=== PATIENT | female | born 1960 | race Caucasian/White ===

== ENCOUNTER → 2016-04-27 | Outpatient (CLI) | payer OTHER ==
[~2016-04-27] MED LIST: ACET500C OR; AMIT10TA2; AMIT25TA PO; AMIT25TA2 OR; MULTIVIT PO; TRAM50TA2; TRAM50TA2 OR; TRAM50TA2 PO
--- NOTE | 2016-04-28 01:33 | ECWPNPC ---
PATIENT NAME: MIKY ELAINE : 1960 GENDER: FEMALE VISIT DATE: 04/27/2016 DISCHARGE DATE: 04/27/16918 VISIT LOCKED DATE TIME: PHYSICIAN: GABRIEL LAST RESOURCE: GABRIEL LAST REASON FOR APPOINTMENT 1. WC 3MO F/U L SHOULDER HISTORY OF PRESENT ILLNESS HISTORY OF PRESENT ILLNESS: PAIN THE PATIENT DESCRIBES THE PAIN... THE PATIENT DESCRIBES THE PAIN... THE PATIENT DESCRIBES THE PAIN... HERE FOR F/U AND MANAGEMENT OF PERSISTENT LEFT SHOULDER AND ARM PAIN.WE ARE FOLLOWING HER FOR CHRONIC PAIN ASSOCIATED WITH WORK INJURY . USING DCS INTERMITTENTLY WITH SIGNIFICANT REDUCTION IN SEVERE PAIN EPISODES.CURRENTLY USING TRAMADOL 50MG TID AND AMITRIPTYLINE 25MG AT BEDTIME. REPORTS THAT THESE MEDICATIONS ARE EFFECTIVE AT REDUCING PAIN AND KEEPING HER FUNCTIONAL. DENIES ADVERSE SIDE EFFECTS.RATING PAIN VAS 6/10.STATES SHE HAS BEEN CARING FOR HER MOTHER AND FEELS THAT AGGREVATES PAIN. FALL RISK SCREENING: SCREENING :NO FALLS IN THE PAST YEAR CURRENT MEDICATIONS TAKING MULTIVITAMIN TABLET CHEWABLE 1 TAB ORALLY DAILY TAKING ACETAMINOPHEN 500 MG TABLET 1 TABLET NEEDED ORALLY EVERY 6 HRS TAKING TRAMADOL HCL 50 MG TABLET 1 TABLET NEEDED ORALLY EVERY 8 HR NEEDED MDD3 TAKING AMITRIPTYLINE HCL 50 MG TABLET 1 TABLET ORALLY AT BEDTIME MEDICATION LIST REVIEWED AND RECONCILED WITH THE PATIENT ALLERGIES PENICILLIN (FOR ALLERGIES USE ONLY): DIFFICULTY BREATHING: ALLERGY SHELLFISH: FACE AND FINGERS SWELL: ALLERGY SOCIAL HISTORY GENERAL: TOBACCO USE ARE YOU A:NONSMOKER LEARNING BARRIERS / SPECIAL NEEDS ORIENTED TO PLAN OF CARE: PATIENT, PAIN MANAGEMENT PATIENT, ORIENTED TO PLAN OF CARE: PATIENT, PAIN MANAGEMENT PATIENT. NEW PATIENT PAIN DIARY TODAY'S VISITNOTES FROM 0-10, WHAT LEVEL IS YOUR PAIN TODAY?0 PAIN CLINIC PFS, CLERGY, PUBLIC HEALTH REFERRALS PFS REFERRAL NEEDED?NO CLERGY REFERRAL NEEDED?NO PUBLIC HEALTH REFERRAL NEEDED?NO WAS THE PROVIDER NOTIFIED OF ANY PERTINENT INFO?YES REVIEWED BY: ELLIOTT. REVIEW OF SYSTEMS CONSTITUTIONAL: ANY CHANGE IN YOUR MEDICAL CONDITION? NO . CHILLS NO . FEVER NO . INFECTION: DO YOU HAVE NEW INFECTIONS? NO . DO YOU HAVE HISTORY OF MRSA? NO . MUSCULOSKELETAL: ANY NEW PATTERNS OF PAIN OR NUMBNESS? YES, PT STATES THAT WEATHER FLUCTUATIONS CAUSE THE PAIN. . GASTROENTEROLOGY: ANY NEW CHANGE IN BOWEL CONTROL? NO . GENITOURINARY: ANY NEW CHANGE IN BLADDER CONTROL? NO . IS THERE A CHANCE YOU COULD BE ? NO . HEMATOLOGY/LYMPH: DO YOU TAKE ANY BLOOD THINNERS? (FOR EXAMPLE- COUMADIN, PLAVIX, AGGRENOX, PLATEL, PRADAXA, OR XARELTO) NO . WHEN WAS YOUR LAST DOSE? DATE: TIME: . NEUROLOGY: HAVE YOU FALLEN IN THE PAST 6 MONTHS? NO . ANY NEW EXTREMITY NUMBNESS OR WEAKNESS? NO . CARDIOLOGY: DO YOU HAVE A PACEMAKER OR DEFIBRILLATOR? NO . RESPIRATORY: HAVE YOU BEEN SICK IN THE PAST WEEK? NO . FEVER NO . FLU LIKE SYMPTOMS? NO . COUGH NO . INTEGUMENTARY: DO YOU HAVE ANY RASHES OR OPEN SORES? NO . ALLERGIC/IMMUNO: ARE YOU ALLERGIC TO SHELLFISH OR IV DYE? NO . ANY NEW ALLERGIES? NO . PSYCHIATRIC: DO YOU HAVE THOUGHTS OF HURTING YOURSELF OR SOMEONE ELSE? NO . ARE YOU ABUSED, NEGLECTED, OR IN AN UNSAFE ENVIRONMENT? NO . ENDOCRINOLOGY: ARE YOU DIABETIC? NO . OTHER: DO YOU NEED ANY PRESCRIPTIONS? YES, AMITRIPTYLINE, TRAMADOL . IF YES, PLEASE LIST: ____ . ANY NEW PROBLEMS WITH YOUR MEDICATIONS? NO . WHEN DID YOU LAST EAT? ____ . WHEN DID YOU LAST DRINK? ____ . WHAT DID YOU LAST DRINK? ____ . NAME OF PERSON DRIVING YOU HOME? ____ . DO YOU HAVE ANY OTHER QUESTIONS OR CONCERNS NO . REVIEWED BY: PROVIDER: GABRIEL MANCUSO . VITAL SIGNS WT 161.2 LBS, HT 62 IN, BMI 29.48 INDEX, BP 114/74 MM HG, HR 85 /MIN, RR 16 /MIN, TEMP 98.3 F, OXYGEN SAT % 96%, SAFE IN ENV? (Y/N) Y, NA INITIALS WY 08:56, REVIEWED BY: ELLIOTT. EXAMINATION GENERAL EXAMINATION: LUNGS:LUNG SOUNDS ARE CLEAR. HEART:HEART RATE REGULAR. MUSCULOSKELETAL:*. MUSCULOSKELETAL: LIMITED MUSCLE STRENGTH TESTING 5/5 R AND 3/5 L, PALPATION: + PAIN L SHOULDER. LEFT SHOULDER RANGE OF MOTION APROX 45 DEGREES ABDUCTION. . ASSESSMENTS CERVICALGIA - M54.2 (PRIMARY) PAIN IN LEFT SHOULDER - M25.512 CHRONIC PRESCRIPTION OPIATE USE - Z79.891 TREATMENT CERVICALGIA CONTINUE ACETAMINOPHEN TABLET, 500 MG, 1 TABLET NEEDED, ORALLY, EVERY 6 HRS REFILL TRAMADOL HCL TABLET, 50 MG, 1 TABLET NEEDED, ORALLY, EVERY 8 HR NEEDED MDD3, 30 DAY(S), 90, REFILLS 2 REFILL AMITRIPTYLINE HCL TABLET, 50 MG, 1 TABLET, ORALLY, AT BEDTIME, 30 DAY(S), 30, REFILLS 5 PROCEDURES PN WORKMANS' COMP OPINION IN YOUR OPINION, WAS THE INCIDENT THAT THE PATIENT DESCRIBED THE COMPETENT MEDICAL CAUSE OF THIS INJURY/ILLNESS? YES ARE THE PATIENT'S COMPLAINTS CONSISTENT WITH HIS/HER HISTORY OF THE INJURY/ILLNESS? YES IS THE PATIENT'S HISTORY OF THE INJURY/ILLNESS CONSISTENT WITH YOUR OBJECTIVE FINDING? YES WHAT IS THE PERCENTAGE OF TEMPORARY IMPAIRMENT? MODERATE TO MARKED = 66.7% IS THE PATIENT WORKING? NO DOCTOR ON SITE: JEREMY TOWNSEND MD PROCEDURE CODES FA211 ESTABILISHED PATIENT [facility] FACILITY CHARGE FOLLOW UP [address] MARES ELECTRONICALLY SIGNED BY JAMEE LIANG ON 04/27/2016 AT 09:23 AM EST DISCLAIMER : THIS IS A VISIT SUMMARY EXTRACTED FROM THE [employer] CHART. IT IS NOT A COPY OF THE [employer] PROGRESS NOTE. [place]
== END ==
LOC: M PAIN 09:00
PROVIDERS: ATTEND Nurse Practitioner Family
DX: Z09 Encounter for follow-up examination after completed treatment for conditions other than malignant neoplasm (principal); G89.29 Other chronic pain; M54.2 Cervicalgia; M25.512 Pain in left shoulder; Z88.0 Allergy status to penicillin; Z91.013 Allergy to seafood; Z79.1 Long term (current) use of non-steroidal anti-inflammatories (NSAID); Z79.891 Long term (current) use of opiate analgesic; Z79.899 Other long term (current) drug therapy

== ENCOUNTER → 2016-06-13 | Outpatient (CLI) | payer OTHER ==
--- NOTE | 2016-06-20 01:22 | ECWPNPC ---
PATIENT NAME: MIKY ELAINE : 1960 GENDER: FEMALE VISIT DATE: 06/13/2016 DISCHARGE DATE: 06/13/16 1653 VISIT LOCKED DATE TIME: PHYSICIAN: JEREMY MARES RESOURCE: JEREMY MARES REASON FOR APPOINTMENT 1. WC, L SHOULDER HISTORY OF PRESENT ILLNESS HISTORY OF PRESENT ILLNESS: PAIN THE PATIENT DESCRIBES THE PAIN... 55 YEAR OLD FEMALE PATIENT WITH HISTORY OF CHRONIC LEFT SHOULDER PAIN. PATIENT DESCRIBES THE PAIN ACHING, BURNING, SHARP, STABBING, TENDER, THROBBING, SORE, SHOOTING, IT COMES AND GOES, AND HAVING IT ALL THE TIME WITH A PAIN SCORE OF 11/10 ON TODAY'S VISIT. PATIENT WAS INJURED IN A WORK RELATED INJURY ON 09/08/1999. PATIENT REPORTS THAT SHE WAS TEARING DOWN A LOAD OF MEAT OFF A PALATE WEIGHING 18 TO 125 LBS. PATIENT NOTED SOME SORENESS IMMEDIATELY AND TWO HOURS LATER HER ARM WAS VERY PAINFUL. PATIENT REPORTS THAT SHE HAS TRIED PHYSICAL THERAPY IN THE PAST BUT CAN NOT RECALL HOW THEY HELPED HER. PATIENT REPORTS THAT TRAMADOL IS WORKING TO TAKE SOME OF THE PAIN AWAY. PATIENT STATES THAT SHE TAKE AMITRIPTYLINE AT NIGHT AND SHE IS TAKING TYLENOL TWICE A DAY. PATIENT REPORTS THAT SHE HAD A DCS PUT IN ABOUT TEN YEARS AGO AND NOT THE DEVICE IS NO LONGER WORKING AND IS NOT RECHARGING. PATIENT DENIES UNEXPLAINABLE WEIGHT LOSS, FEVER, CHILLS, NEW CHANGES ON HER URINARY OR BOWEL CONTROL. FALL RISK SCREENING: SCREENING :NO FALLS IN THE PAST YEAR CURRENT MEDICATIONS TAKING MULTIVITAMIN TABLET CHEWABLE 1 TAB ORALLY DAILY TAKING ACETAMINOPHEN 500 MG TABLET 1 TABLET NEEDED ORALLY EVERY 6 HRS TAKING TRAMADOL HCL 50 MG TABLET 1 TABLET NEEDED ORALLY EVERY 8 HR NEEDED MDD3 TAKING AMITRIPTYLINE HCL 50 MG TABLET 1 TABLET ORALLY AT BEDTIME MEDICATION LIST REVIEWED AND RECONCILED WITH THE PATIENT PAST MEDICAL HISTORY NO MEDICAL HISTORY. ALLERGIES PENICILLIN (FOR ALLERGIES USE ONLY): DIFFICULTY BREATHING: ALLERGY SHELLFISH: FACE AND FINGERS SWELL: ALLERGY SURGICAL HISTORY NO SURGICAL HISTORY DOCUMENTED. FAMILY HISTORY NO FAMILY HISTORY DOCUMENTED. SOCIAL HISTORY GENERAL: TOBACCO USE ARE YOU A:NONSMOKER LEARNING BARRIERS / SPECIAL NEEDS ORIENTED TO PLAN OF CARE: PATIENT, PAIN MANAGEMENT PATIENT, ORIENTED TO PLAN OF CARE: PATIENT, PAIN MANAGEMENT PATIENT. NEW PATIENT PAIN DIARY TODAY'S VISITNOTES FROM 0-10, WHAT LEVEL IS YOUR PAIN TODAY?0 PAIN CLINIC PFS, CLERGY, PUBLIC HEALTH REFERRALS PFS REFERRAL NEEDED?NO CLERGY REFERRAL NEEDED?NO PUBLIC HEALTH REFERRAL NEEDED?NO WAS THE PROVIDER NOTIFIED OF ANY PERTINENT INFO?NO PFS REFERRAL NEEDED?NO CLERGY REFERRAL NEEDED?NO PUBLIC HEALTH REFERRAL NEEDED?NO WAS THE PROVIDER NOTIFIED OF ANY PERTINENT INFO?NO HOSPITALIZATION/MAJOR DIAGNOSTIC PROCEDURE NO HOSPITALIZATION HISTORY. REVIEW OF SYSTEMS CONSTITUTIONAL: ANY CHANGE IN YOUR MEDICAL CONDITION? NO . CHILLS NO . FEVER NO . INFECTION: DO YOU HAVE NEW INFECTIONS? NO . DO YOU HAVE HISTORY OF MRSA? NO . MUSCULOSKELETAL: ANY NEW PATTERNS OF PAIN OR NUMBNESS? NO . GASTROENTEROLOGY: ANY NEW CHANGE IN BOWEL CONTROL? NO . GENITOURINARY: ANY NEW CHANGE IN BLADDER CONTROL? NO . IS THERE A CHANCE YOU COULD BE ? NO . HEMATOLOGY/LYMPH: DO YOU TAKE ANY BLOOD THINNERS? (FOR EXAMPLE- COUMADIN, PLAVIX, AGGRENOX, PLATEL, PRADAXA, OR XARELTO) NO . WHEN WAS YOUR LAST DOSE? DATE: TIME: . NEUROLOGY: HAVE YOU FALLEN IN THE PAST 6 MONTHS? NO . ANY NEW EXTREMITY NUMBNESS OR WEAKNESS? NO . CARDIOLOGY: DO YOU HAVE A PACEMAKER OR DEFIBRILLATOR? NO . RESPIRATORY: HAVE YOU BEEN SICK IN THE PAST WEEK? NO . FEVER NO . FLU LIKE SYMPTOMS? NO . COUGH NO . INTEGUMENTARY: DO YOU HAVE ANY RASHES OR OPEN SORES? NO . ALLERGIC/IMMUNO: ARE YOU ALLERGIC TO SHELLFISH OR IV DYE? YES SHELLFISH . ANY NEW ALLERGIES? NO . PSYCHIATRIC: DO YOU HAVE THOUGHTS OF HURTING YOURSELF OR SOMEONE ELSE? NO . ARE YOU ABUSED, NEGLECTED, OR IN AN UNSAFE ENVIRONMENT? NO . ENDOCRINOLOGY: ARE YOU DIABETIC? NO . OTHER: DO YOU NEED ANY PRESCRIPTIONS? YES ULTRAM, AMITRIPTYLINE . IF YES, PLEASE LIST: ____ . ANY NEW PROBLEMS WITH YOUR MEDICATIONS? NO . WHEN DID YOU LAST EAT? ____ . WHEN DID YOU LAST DRINK? ____ . WHAT DID YOU LAST DRINK? ____ . NAME OF PERSON DRIVING YOU HOME? ____ . DO YOU HAVE ANY OTHER QUESTIONS OR CONCERNS NO . REVIEWED BY: PROVIDER: JEREMY MARES MD . VITAL SIGNS WT 132 LBS, HT 62 IN, BMI 24.14 INDEX, BP 117/71 MM HG, HR 68 /MIN, RR 16 /MIN, TEMP 98.8 F, OXYGEN SAT % 97, NA INITIALS [id number], REVIEWED BY: MLF. EXAMINATION : PATIENT IS ALERT O X 3 AND COOPERATIVE. PATIENT HAS TENDERNESS, ALLODYNIA AND HYPERPATHIA IN THE LEFT SHOULDER. 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 ELAINE'S PAIN MANAGEMENT CASE. AT THIS TIME I WILL REFILL TRAMADOL, AMITRIPTYLINE, AND ACETAMINOPHEN TODAY. I DISCUSSED WITH THE PATIENT THAT I DO NOT DO REFILLS OVER THE PHONE AND IT IS IMPORTANT TO COME TO EVERY VISIT. INFORMED THE PATIENT THAT TRAMADOL IS NOW CONSIDERED AN OPIOID AND IN THE FUTURE I WILL BEGIN TO ORDER A UTOX. I CONTACT ROBERT JAY TO HAVE THE DCS DEVICE LOOKED AT. PATIENT TO FOLLOW UP WITH ME IN 6 WEEKS. INSTRUCTIONS WERE GIVEN, QUESTIONS WERE ANSWERED, PATIENT REPORTS UNDERSTANDING AND AGREES WITH THE PLAN. I, RODOLFO DOMINGUEZ, DOCUMENTED THE ABOVE INFORMATION ACTING A SCRIBE FOR DR. MARES. I HAVE REVIEWED THE ABOVE DOCUMENT, WRITTEN BY RODOLFO DOMINGUEZ SCRIBKaren AND I VERIFY THAT IT IS ACCURATE. OTHERS REFILL TRAMADOL HCL TABLET, 50 MG, 1 TABLET NEEDED, ORALLY CODE D FOR CHRONIC PAIN ), EVERY 8 HR NEEDED MDD3, 60 DAYS, 180, REFILLS 0 REFILL AMITRIPTYLINE HCL TABLET, 50 MG, 1 TABLET, ORALLY, AT BEDTIME, 30 DAY(S), 30, REFILLS 3 REFILL ACETAMINOPHEN TABLET, 500 MG, 2 TABLET NEEDED, ORALLY FOR PAIN (WORKERS COMP), EVERY 6 HRS MDD4, 30 DAY(S), 200, REFILLS 2 PROCEDURES PN WORKMANS' COMP OPINION IN YOUR OPINION, WAS THE INCIDENT THAT THE PATIENT DESCRIBED THE COMPETENT MEDICAL CAUSE OF THIS INJURY/ILLNESS? YES ARE THE PATIENT'S COMPLAINTS CONSISTENT WITH HIS/HER HISTORY OF THE INJURY/ILLNESS? YES IS THE PATIENT'S HISTORY OF THE INJURY/ILLNESS CONSISTENT WITH YOUR OBJECTIVE FINDING? YES WHAT IS THE PERCENTAGE OF TEMPORARY IMPAIRMENT? MODERATE TO MARKED = 66.7% IS THE PATIENT WORKING? NO DOCTOR ON SITE: JEREMY TOWNSEND MD PROCEDURE CODES FA211 ESTABILISHED PATIENT [facility] FACILITY CHARGE [id number] PAIN ASSESS POS TOOL F/U PLAN DOC G8427 DOC MEDS VERIFIED W/PT OR RE DISPOSITION & COMMUNICATION FOLLOW UP 6 WEEKS ELECTRONICALLY SIGNED BY JEREMY MARES MD ON 06/19/2016 AT 12:20 PM EDT DISCLAIMER : THIS IS A VISIT SUMMARY EXTRACTED FROM THE [facility] CHART. IT IS NOT A COPY OF THE [employer] PROGRESS NOTE. MTDD
== END ==
LOC: M PAIN 15:20
PROVIDERS: ATTEND Anesthesiology
DX: Z09 Encounter for follow-up examination after completed treatment for conditions other than malignant neoplasm (principal); G90.512 Complex regional pain syndrome I of left upper limb; G89.29 Other chronic pain; M25.512 Pain in left shoulder; Z88.0 Allergy status to penicillin; Z91.013 Allergy to seafood; Z79.899 Other long term (current) drug therapy

== ENCOUNTER → 2016-07-27 | Outpatient (CLI) | payer OTHER ==
--- NOTE | 2016-07-31 00:48 | ECWPNPC ---
PATIENT NAME: MIKY ELAINE : 1960 GENDER: FEMALE VISIT DATE: 07/27/2016 DISCHARGE DATE: 07/27/16 1428 VISIT LOCKED DATE TIME: PHYSICIAN: JEREMY MARES RESOURCE: JEREMY MARES REASON FOR APPOINTMENT 1. W/C LT SHOULDER HISTORY OF PRESENT ILLNESS HISTORY OF PRESENT ILLNESS: PAIN THE PATIENT DESCRIBES THE PAIN... 55 YEAR OLD FEMALE PATIENT WITH HISTORY OF CHRONIC LEFT SHOULDER PAIN. PATIENT DESCRIBES THE PAIN ACHING, BURNING, SHARP, STABBING, TENDER, THROBBING, SORE, IT COMES AND GOES, AND HAVING IT ALL THE TIME WITH A PAIN SCORE OF 9/10 ON TODAY'S VISIT. PATIENT WAS INJURED IN A WORK RELATED INJURY ON 09/08/1999. PATIENT REPORTS THAT SHE WAS TEARING DOWN A LOAD OF MEAT OFF A PALATE WEIGHING 18 TO 125 LBS. PATIENT NOTED SOME SORENESS IMMEDIATELY AND TWO HOURS LATER HER ARM WAS VERY PAINFUL. PATIENT REPORTS THAT SHE HAS TRIED PHYSICAL THERAPY IN THE PAST BUT CAN NOT RECALL HOW THEY HELPED HER. PATIENT REPORTS THAT TRAMADOL IS WORKING TO TAKE SOME OF THE PAIN AWAY. PATIENT STATES THAT SHE TAKE AMITRIPTYLINE AT NIGHT AND SHE IS TAKING TYLENOL TWICE A DAY .PATIENT REPORTS THAT SHE HAS NOT YET HAD HER DCS CHECKED, PATIENT DENIES UNEXPLAINABLE WEIGHT LOSS, FEVER, CHILLS, NEW CHANGES ON HER URINARY OR BOWEL CONTROL. FALL RISK SCREENING: SCREENING :NO FALLS IN THE PAST YEAR CURRENT MEDICATIONS TAKING TRAMADOL HCL 50 MG TABLET 1 TABLET NEEDED ORALLY CODE D FOR CHRONIC PAIN ) EVERY 8 HR NEEDED MDD3 TAKING AMITRIPTYLINE HCL 50 MG TABLET 1 TABLET ORALLY AT BEDTIME TAKING ACETAMINOPHEN 500 MG TABLET 2 TABLET NEEDED ORALLY FOR PAIN (WORKERS COMP) EVERY 6 HRS MDD4 TAKING MULTIVITAMIN TABLET CHEWABLE 1 TAB ORALLY DAILY MEDICATION LIST REVIEWED AND RECONCILED WITH THE PATIENT PAST MEDICAL HISTORY NO MEDICAL HISTORY. ALLERGIES PENICILLIN (FOR ALLERGIES USE ONLY): DIFFICULTY BREATHING: ALLERGY SHELLFISH: FACE AND FINGERS SWELL: ALLERGY SURGICAL HISTORY NO SURGICAL HISTORY DOCUMENTED. FAMILY HISTORY NO FAMILY HISTORY DOCUMENTED. SOCIAL HISTORY GENERAL: TOBACCO USE ARE YOU A:NONSMOKER LEARNING BARRIERS / SPECIAL NEEDS ORIENTED TO PLAN OF CARE: PATIENT, PAIN MANAGEMENT PATIENT, ORIENTED TO PLAN OF CARE: PATIENT, PAIN MANAGEMENT PATIENT. NEW PATIENT PAIN DIARY TODAY'S VISITNOTES FROM 0-10, WHAT LEVEL IS YOUR PAIN TODAY?0 PAIN CLINIC PFS, CLERGY, PUBLIC HEALTH REFERRALS PFS REFERRAL NEEDED?NO CLERGY REFERRAL NEEDED?NO PUBLIC HEALTH REFERRAL NEEDED?NO WAS THE PROVIDER NOTIFIED OF ANY PERTINENT INFO?NO PFS REFERRAL NEEDED?NO CLERGY REFERRAL NEEDED?NO PUBLIC HEALTH REFERRAL NEEDED?NO WAS THE PROVIDER NOTIFIED OF ANY PERTINENT INFO?NO HOSPITALIZATION/MAJOR DIAGNOSTIC PROCEDURE NO HOSPITALIZATION HISTORY. REVIEW OF SYSTEMS CONSTITUTIONAL: ANY CHANGE IN YOUR MEDICAL CONDITION? NO . CHILLS NO . FEVER NO . INFECTION: DO YOU HAVE NEW INFECTIONS? NO . DO YOU HAVE HISTORY OF MRSA? NO . MUSCULOSKELETAL: ANY NEW PATTERNS OF PAIN OR NUMBNESS? YES, DCS NOT WORKING. . GASTROENTEROLOGY: ANY NEW CHANGE IN BOWEL CONTROL? NO . GENITOURINARY: ANY NEW CHANGE IN BLADDER CONTROL? NO . IS THERE A CHANCE YOU COULD BE ? NO . HEMATOLOGY/LYMPH: DO YOU TAKE ANY BLOOD THINNERS? (FOR EXAMPLE- COUMADIN, PLAVIX, AGGRENOX, PLATEL, PRADAXA, OR XARELTO) NO . WHEN WAS YOUR LAST DOSE? DATE: TIME: . NEUROLOGY: HAVE YOU FALLEN IN THE PAST 6 MONTHS? NO . ANY NEW EXTREMITY NUMBNESS OR WEAKNESS? NO . CARDIOLOGY: DO YOU HAVE A PACEMAKER OR DEFIBRILLATOR? NO . RESPIRATORY: HAVE YOU BEEN SICK IN THE PAST WEEK? NO . FEVER NO . FLU LIKE SYMPTOMS? NO . COUGH NO . INTEGUMENTARY: DO YOU HAVE ANY RASHES OR OPEN SORES? NO . ALLERGIC/IMMUNO: ARE YOU ALLERGIC TO SHELLFISH OR IV DYE? YES . ANY NEW ALLERGIES? NO . PSYCHIATRIC: DO YOU HAVE THOUGHTS OF HURTING YOURSELF OR SOMEONE ELSE? NO . ARE YOU ABUSED, NEGLECTED, OR IN AN UNSAFE ENVIRONMENT? NO . ENDOCRINOLOGY: ARE YOU DIABETIC? NO . OTHER: DO YOU NEED ANY PRESCRIPTIONS? YES . IF YES, PLEASE LIST: AMITRIPTILINE, TRAMADOL . ANY NEW PROBLEMS WITH YOUR MEDICATIONS? NO . WHEN DID YOU LAST EAT? ____ . WHEN DID YOU LAST DRINK? ____ . WHAT DID YOU LAST DRINK? ____ . NAME OF PERSON DRIVING YOU HOME? ____ . DO YOU HAVE ANY OTHER QUESTIONS OR CONCERNS NO . REVIEWED BY: PROVIDER: JEREMY MARES MD . VITAL SIGNS WT 132.0 LBS, HT 62 IN, BMI 24.14 INDEX, BP 116/74 MM HG, HR 79 /MIN, RR 16 /MIN, TEMP 98.5 F, OXYGEN SAT % 98%, NA INITIALS TL 1307, REVIEWED BY: CM. EXAMINATION : PATIENT IS ALERT O X 3 AND COOPERATIVE. PATIENT IS ALERT O X 3 AND COOPERATIVE. PATIENT HAS TENDERNESS, ALLODYNIA AND HYPERPATHIA IN THE LEFT SHOULDER. PATIENT IS ABLE TO ABDUCT HER RIGHT UPPER EXTREMITY AND THE LEFT UPPER EXTREMITY TO SHOULDER LEVEL ONLY. PATIENT'S LEFT ARM IS WEAKER AT FLEXION AND EXTENSION. 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 TREATMENT PAIN IN LEFT SHOULDER NOTES: WE DISCUSSED SEVERAL ISSUES WITH MS. ELAINE'S PAIN MANAGEMENT CASE. AT THIS TIME I WILL REFILL TRAMADOL AND AMITRIPTYLINE TODAY. PATIENT BROUGHT HER MEDICATION BOTTLES TODAY ADVISED FOR EVERY FOLLOW UP VISIT. I SPOKE WITH ROBERT JAY TODAY REGARDING ABOUT THE PATIENT'S DCS AND HE WILL FOLLOW UP WITH THE PATIENT TOMORROW. I WILL ORDER A NEW UTOX TODAY. PATIENT TO FOLLOW UP WITH ME IN 7 WEEKS. INSTRUCTIONS WERE GIVEN, QUESTIONS WERE ANSWERED, PATIENT REPORTS UNDERSTANDING AND AGREES WITH THE PLAN. I, RODOLFO DOMINGUEZ, DOCUMENTED THE ABOVE INFORMATION ACTING A SCRIBE FOR DR. MARES. I HAVE REVIEWED THE ABOVE DOCUMENT, WRITTEN BY RODOLFO DIAZIBKaren AND I VERIFY THAT IT IS ACCURATE. OTHERS REFILL TRAMADOL HCL TABLET, 50 MG, 1 TABLET NEEDED, ORALLY CODE D FOR CHRONIC PAIN ), EVERY 8 HR NEEDED MDD3, 60 DAYS, 180, REFILLS 0 REFILL AMITRIPTYLINE HCL TABLET, 50 MG, 1 TABLET, ORALLY, AT BEDTIME, 30 DAY(S), 30, REFILLS 3 PROCEDURES PN WORKMANS' COMP OPINION IN YOUR OPINION, WAS THE INCIDENT THAT THE PATIENT DESCRIBED THE COMPETENT MEDICAL CAUSE OF THIS INJURY/ILLNESS? YES ARE THE PATIENT'S COMPLAINTS CONSISTENT WITH HIS/HER HISTORY OF THE INJURY/ILLNESS? YES IS THE PATIENT'S HISTORY OF THE INJURY/ILLNESS CONSISTENT WITH YOUR OBJECTIVE FINDING? YES WHAT IS THE PERCENTAGE OF TEMPORARY IMPAIRMENT? MODERATE TO MARKED = 66.7% IS THE PATIENT WORKING? NO DOCTOR ON SITE: JEREMY TOWNSEND MD PROCEDURE CODES FA211 ESTABILISHED PATIENT [facility] FACILITY CHARGE G8730 PAIN ASSESS POS TOOL F/U PLAN DOC G8427 DOC MEDS VERIFIED W/PT OR RE DISPOSITION & COMMUNICATION FOLLOW UP 7 MONTHS ELECTRONICALLY SIGNED BY JEREMY MARES MD ON 07/30/2016 AT 12:41 PM EDT DISCLAIMER : THIS IS A VISIT SUMMARY EXTRACTED FROM THE [employer] CHART. IT IS NOT A COPY OF THE [employer] PROGRESS NOTE. [place]
== END ==
LOC: M PAIN 13:20
PROVIDERS: ATTEND Anesthesiology
DX: G89.29 Other chronic pain (principal); M25.512 Pain in left shoulder; Z88.0 Allergy status to penicillin; Z91.013 Allergy to seafood; Z79.1 Long term (current) use of non-steroidal anti-inflammatories (NSAID); Z79.899 Other long term (current) drug therapy

== ENCOUNTER → 2016-09-20 | Outpatient (CLI) | payer OTHER ==
--- NOTE | 2016-10-03 23:48 | ECWPNPC ---
PATIENT NAME: MIKY ELAINE : 1960 GENDER: FEMALE VISIT DATE: 09/20/2016 DISCHARGE DATE: 09/20/16 1406 VISIT LOCKED DATE TIME: PHYSICIAN: JEREMY MARES RESOURCE: JEREMY MARES REASON FOR APPOINTMENT 1. LEFT SHOULDER W/C HISTORY OF PRESENT ILLNESS GENERAL: 55 YEAR OLD FEMALE PATIENT WITH HISTORY OF CHRONIC LEFT SHOULDER PAIN. PATIENT DESCRIBES THE PAIN ACHING, BURNING, SHARP, STABBING, TENDER, THROBBING, SORE, SHOOTING, IT COMES AND GOES, AND HAVING IT ALL THE TIME WITH A PAIN SCORE OF 6/10 ON TODAY'S VISIT. PATIENT WAS INJURED IN A WORK RELATED INJURY ON 09/08/1999. PATIENT REPORTS THAT SHE WAS TEARING DOWN A LOAD OF MEAT OFF A PALATE WEIGHING 18 TO 125 LBS. PATIENT NOTED SOME SORENESS IMMEDIATELY AND TWO HOURS LATER HER ARM WAS VERY PAINFUL. PATIENT REPORTS THAT SHE HAS TRIED PHYSICAL THERAPY IN THE PAST BUT CAN NOT RECALL HOW THEY HELPED HER. PATIENT REPORTS THAT SHE SPOKE WITH THE DCS PEOPLE AND HER DCS IS WORKING AGAIN FOR HER. PATIENT DENIES UNEXPLAINABLE WEIGHT LOSS, FEVER, CHILLS, NEW CHANGES ON HER URINARY OR BOWEL CONTROL. HISTORY OF PRESENT ILLNESS: PAIN THE PATIENT DESCRIBES THE PAIN... FALL RISK SCREENING: SCREENING :NO FALLS IN THE PAST YEAR CURRENT MEDICATIONS TAKING TRAMADOL HCL 50 MG TABLET 1 TABLET NEEDED ORALLY CODE D FOR CHRONIC PAIN ) EVERY 8 HR NEEDED MDD3 TAKING AMITRIPTYLINE HCL 50 MG TABLET 1 TABLET ORALLY AT BEDTIME TAKING ACETAMINOPHEN 500 MG TABLET 2 TABLET NEEDED ORALLY FOR PAIN (WORKERS COMP) EVERY 6 HRS MDD4 TAKING MULTIVITAMIN TABLET CHEWABLE 1 TAB ORALLY DAILY PAST MEDICAL HISTORY DCS PLACED 4 YEARS AGO ALLERGIES PENICILLIN (FOR ALLERGIES USE ONLY): DIFFICULTY BREATHING: ALLERGY SHELLFISH: FACE AND FINGERS SWELL: ALLERGY SURGICAL HISTORY NO SURGICAL HISTORY DOCUMENTED. FAMILY HISTORY NO FAMILY HISTORY DOCUMENTED. SOCIAL HISTORY GENERAL: TOBACCO USE ARE YOU A:NONSMOKER LEARNING BARRIERS / SPECIAL NEEDS ORIENTED TO PLAN OF CARE: PATIENT, PAIN MANAGEMENT PATIENT, ORIENTED TO PLAN OF CARE: PATIENT, PAIN MANAGEMENT PATIENT. NEW PATIENT PAIN DIARY TODAY'S VISITNOTES FROM 0-10, WHAT LEVEL IS YOUR PAIN TODAY?0 PAIN CLINIC PFS, CLERGY, PUBLIC HEALTH REFERRALS PFS REFERRAL NEEDED?NO CLERGY REFERRAL NEEDED?NO PUBLIC HEALTH REFERRAL NEEDED?NO WAS THE PROVIDER NOTIFIED OF ANY PERTINENT INFO?NO PFS REFERRAL NEEDED?NO CLERGY REFERRAL NEEDED?NO PUBLIC HEALTH REFERRAL NEEDED?NO WAS THE PROVIDER NOTIFIED OF ANY PERTINENT INFO?NO HOSPITALIZATION/MAJOR DIAGNOSTIC PROCEDURE NO HOSPITALIZATION HISTORY. REVIEW OF SYSTEMS REVIEWED BY: PROVIDER: . CONSTITUTIONAL: ANY CHANGE IN YOUR MEDICAL CONDITION? NO . CHILLS NO . FEVER NO . INFECTION: DO YOU HAVE NEW INFECTIONS? NO . DO YOU HAVE HISTORY OF MRSA? NO . MUSCULOSKELETAL: ANY NEW PATTERNS OF PAIN OR NUMBNESS? NO . GASTROENTEROLOGY: ANY NEW CHANGE IN BOWEL CONTROL? NO . GENITOURINARY: ANY NEW CHANGE IN BLADDER CONTROL? NO . IS THERE A CHANCE YOU COULD BE ? NO . HEMATOLOGY/LYMPH: DO YOU TAKE ANY BLOOD THINNERS? (FOR EXAMPLE- COUMADIN, PLAVIX, AGGRENOX, PLATEL, PRADAXA, OR XARELTO) NO . WHEN WAS YOUR LAST DOSE? DATE: TIME: . NEUROLOGY: HAVE YOU FALLEN IN THE PAST 6 MONTHS? NO . ANY NEW EXTREMITY NUMBNESS OR WEAKNESS? NO . CARDIOLOGY: DO YOU HAVE A PACEMAKER OR DEFIBRILLATOR? NO . RESPIRATORY: HAVE YOU BEEN SICK IN THE PAST WEEK? NO . FEVER NO . FLU LIKE SYMPTOMS? NO . COUGH NO . INTEGUMENTARY: DO YOU HAVE ANY RASHES OR OPEN SORES? NO . ALLERGIC/IMMUNO: ARE YOU ALLERGIC TO SHELLFISH OR IV DYE? YES, SHELLFISH . ANY NEW ALLERGIES? NO . PSYCHIATRIC: DO YOU HAVE THOUGHTS OF HURTING YOURSELF OR SOMEONE ELSE? NO . ARE YOU ABUSED, NEGLECTED, OR IN AN UNSAFE ENVIRONMENT? NO . ENDOCRINOLOGY: ARE YOU DIABETIC? NO . OTHER: DO YOU NEED ANY PRESCRIPTIONS? YES . IF YES, PLEASE LIST: AMIPTRIPTLINE, TRAMADOL . ANY NEW PROBLEMS WITH YOUR MEDICATIONS? NO . WHEN DID YOU LAST EAT? ____ . WHEN DID YOU LAST DRINK? ____ . WHAT DID YOU LAST DRINK? ____ . NAME OF PERSON DRIVING YOU HOME? ____ . DO YOU HAVE ANY OTHER QUESTIONS OR CONCERNS NO . VITAL SIGNS WT 165.0 LBS, HT 62 IN, BMI 30.18 INDEX, BP 126/87 MM HG, HR 90 /MIN, RR 16 /MIN, TEMP 98.3 F, OXYGEN SAT % 96%, [place] INITIALS TL [id number] WEIGHED ON PMC SCALE-TL. EXAMINATION GENERAL: PATIENT IS ALERT O X 3 AND COOPERATIVE. PATIENT IS ALERT O X 3 AND COOPERATIVE. PATIENT HAS TENDERNESS, ALLODYNIA AND HYPERPATHIA IN THE LEFT SHOULDER. PATIENT'S LEFT ARM IS WEAKER AT FLEXION AND EXTENSION. 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 TREATMENT PAIN IN LEFT SHOULDER NOTES: WE DISCUSSED SEVERAL ISSUES WITH MS. ELAINE'S PAIN MANAGEMENT CASE. AT THIS TIME I WILL REFILL TRAMADOL, ACETAMINOPHEN, AND AMITRIPTYLINE TODAY. PATIENT DID NOT BRING HER MEDICATION IN THE ORIGINAL BOTTLES TODAY, AND WAS INSTRUCTED TO BRING THEM TO EVERY FOLLOW UP. UTOX ORDERED ON 08/01/2016 SHOWS CONSISTENT RESULTS WITH WHAT WAS PRESCRIBED. PATIENT WILL FOLLOW UP WITH ME IN 10 WEEKS. INSTRUCTIONS WERE GIVEN, QUESTIONS WERE ANSWERED, PATIENT REPORTS UNDERSTANDING AND AGREES WITH THE PLAN. I, RODOLFO DOMINGUEZ, DOCUMENTED THE ABOVE INFORMATION ACTING A SCRIBE FOR DR. MARES. I HAVE REVIEWED THE ABOVE DOCUMENT, WRITTEN BY RODOLFO DOMINGUEZ SCRIBKaren AND I VERIFY THAT IT IS ACCURATE. OTHERS REFILL TRAMADOL HCL TABLET, 50 MG, 1 TABLET NEEDED, ORALLY CODE D FOR CHRONIC PAIN ), EVERY 8 HR NEEDED MDD3, 90 DAYS, 270, REFILLS 0 REFILL AMITRIPTYLINE HCL TABLET, 50 MG, 1 TABLET, ORALLY, AT BEDTIME, 30 DAY(S), 30, REFILLS 3 REFILL ACETAMINOPHEN TABLET, 500 MG, 2 TABLET NEEDED, ORALLY FOR PAIN (WORKERS COMP), EVERY 6 HRS MDD4, 30 DAY(S), 200, REFILLS 2 PROCEDURES PN WORKMANS' COMP OPINION IN YOUR OPINION, WAS THE INCIDENT THAT THE PATIENT DESCRIBED THE COMPETENT MEDICAL CAUSE OF THIS INJURY/ILLNESS? YES ARE THE PATIENT'S COMPLAINTS CONSISTENT WITH HIS/HER HISTORY OF THE INJURY/ILLNESS? YES IS THE PATIENT'S HISTORY OF THE INJURY/ILLNESS CONSISTENT WITH YOUR OBJECTIVE FINDING? YES WHAT IS THE PERCENTAGE OF TEMPORARY IMPAIRMENT? MODERATE TO MARKED = 66.7% IS THE PATIENT WORKING? NO DOCTOR ON SITE: JEREMY TOWNSEND MD PROCEDURE CODES FA211 ESTABILISHED PATIENT [facility] FACILITY CHARGE G8730 PAIN ASSESS POS TOOL F/U PLAN DOC G8427 DOC MEDS VERIFIED W/PT OR RE DISPOSITION & COMMUNICATION FOLLOW UP 10 WEEK ELECTRONICALLY SIGNED BY JEREMY MARES MD ON 10/03/2016 AT 09:35 PM EDT DISCLAIMER : THIS IS A VISIT SUMMARY EXTRACTED FROM THE [employer] CHART. IT IS NOT A COPY OF THE [employer] PROGRESS NOTE. [place]
== END ==
LOC: M PAIN 13:00
PROVIDERS: ATTEND Anesthesiology
DX: G89.29 Other chronic pain (principal); M25.512 Pain in left shoulder; Z79.891 Long term (current) use of opiate analgesic; Z79.899 Other long term (current) drug therapy; Z88.0 Allergy status to penicillin; Z91.013 Allergy to seafood

== ENCOUNTER → 2016-12-05 | Outpatient (CLI) | payer OTHER ==
--- NOTE | 2016-12-07 01:36 | ECWPNPC ---
PATIENT NAME: MIYK ELAINE : 1960 GENDER: FEMALE VISIT DATE: 12/05/2016 DISCHARGE DATE: 12/05/16 1335 VISIT LOCKED DATE TIME: PHYSICIAN: JEREMY MARES RESOURCE: JEREMY MARES REASON FOR APPOINTMENT 1. W/C LEFT SHOULDER HISTORY OF PRESENT ILLNESS HISTORY OF PRESENT ILLNESS: PAIN THE PATIENT DESCRIBES THE PAIN... 55 YEAR OLD FEMALE PATIENT WITH HISTORY OF CHRONIC LEFT SHOULDER PAIN. PATIENT DESCRIBES THE PAIN ACHING, BURNING, SHARP, STABBING, TENDER, THROBBING, SORE, SHOOTING, IT COMES AND GOES, AND HAVING IT ALL THE TIME WITH A PAIN SCORE OF 6/10 ON TODAY'S VISIT. PATIENT WAS INJURED IN A WORK RELATED INJURY ON 09/08/1999. PATIENT REPORTS THAT SHE WAS MOVING HEAVY BOXES OF MEAT OFF A PALLET AND INJURED HER LEFT SHOULDER PATIENT NOTED SOME SORENESS IMMEDIATELY AND TWO HOURS LATER HER ARM WAS VERY PAINFUL. PATIENT REPORTS THAT SHE HAS TRIED PHYSICAL THERAPY IN THE PAST AND STATES THAT IT DOES NOT AID IN PAIN RELIEF. PATIENT HAS RECEIVED 3 SHOULDER SURGERIES SINCE THE ACCIDENT. PATIENT REPORTS THAT THE DCS IS WORKING AND HELPING WITH PAIN RELIEF. CURRENTLY THE PATIENT IS USING TRAMADOL AND AMITRIPTYLINE NIGHT TO AID AT NIGHT. PATIENT DENIES UNEXPLAINABLE WEIGHT LOSS, FEVER, CHILLS, NEW CHANGES ON HER URINARY OR BOWEL CONTROL. FALL RISK SCREENING: SCREENING :NO FALLS IN THE PAST YEAR CURRENT MEDICATIONS TAKING TRAMADOL HCL 50 MG TABLET 1 TABLET NEEDED ORALLY CODE D FOR CHRONIC PAIN ) EVERY 8 HR NEEDED MDD3 TAKING AMITRIPTYLINE HCL 50 MG TABLET 1 TABLET ORALLY AT BEDTIME TAKING ACETAMINOPHEN 500 MG TABLET 2 TABLET NEEDED ORALLY FOR PAIN (WORKERS COMP) EVERY 6 HRS MDD4 TAKING MULTIVITAMIN TABLET CHEWABLE 1 TAB ORALLY DAILY MEDICATION LIST REVIEWED AND RECONCILED WITH THE PATIENT PAST MEDICAL HISTORY DCS PLACED 4 YEARS AGO ALLERGIES PENICILLIN (FOR ALLERGIES USE ONLY): DIFFICULTY BREATHING: ALLERGY SHELLFISH: FACE AND FINGERS SWELL: ALLERGY SOCIAL HISTORY GENERAL: TOBACCO USE ARE YOU A: NONSMOKER . [id number] LANGUAGE LANGUAGES SPOKEN:MONGOLIAN LEARNING BARRIERS / SPECIAL NEEDS BARRIERS TO LEARNING?NO HEARING IMPAIRED?NO VISION IMPAIRED?YES :CORRECTIVE LENSES COGNITIVELY IMPAIRED?NO READINESS TO LEARN?YES LEARNING PREFERENCES?NO LEARNING CAPABILITIES PRESENT?YES EMOTIONAL BARRIERS?NO SPECIAL DEVICES?NO TELECOM SALES CONSULTANT NEEDED?NO NEW PATIENT PAIN DIARY TODAY'S VISIT NOTES, FROM 0-10, WHAT LEVEL IS YOUR PAIN TODAY? 0. PAIN CLINIC PFS, CLERGY, PUBLIC HEALTH REFERRALS PFS REFERRAL NEEDED?NO CLERGY REFERRAL NEEDED?NO PUBLIC HEALTH REFERRAL NEEDED?NO WAS THE PROVIDER NOTIFIED OF ANY PERTINENT INFO?YES HAS THE PATIENT BEEN EDUCATED REGARDING HIS/HER PLAN OF CARE?YES HAS THE PATIENT BEEN EDUCATED REGARDING PAIN, THE RISK FOR PAIN, THE IMPORTANCE OF EFFECTIVE PAIN MANAGEMENT, AND THE PAIN ASSESSMENT PROCESS?NO ADVANCE DIRECTIVES HEALTH CARE PROXY?NO WOULD YOU LIKE MORE INFORMATION?YES GIVEN 12/05/16 DO YOU HAVE A DNR?NO WOULD YOU LIKE MORE INFORMATION?NO LIVING WILL?NO WOULD YOU LIKE MORE INFORMATION?NO POWER OF WATCH CRYSTAL EDGE GRINDER?NO WOULD YOU LIKE MORE INFORMATION?NO REVIEW OF SYSTEMS REVIEWED BY: PROVIDER: JEREMY MARES MD . CONSTITUTIONAL: ANY CHANGE IN YOUR MEDICAL CONDITION? YES, NEW PAIN WITH PAIN RADIATING INTO LEFT ARM . CHILLS NO . FEVER NO . INFECTION: DO YOU HAVE NEW INFECTIONS? NO . DO YOU HAVE HISTORY OF MRSA? NO . MUSCULOSKELETAL: ANY NEW PATTERNS OF PAIN OR NUMBNESS? YES, PAIN RADIATING INTO LEFT ARM . GASTROENTEROLOGY: ANY NEW CHANGE IN BOWEL CONTROL? NO . GENITOURINARY: ANY NEW CHANGE IN BLADDER CONTROL? NO . IS THERE A CHANCE YOU COULD BE ? NO . HEMATOLOGY/LYMPH: DO YOU TAKE ANY BLOOD THINNERS? (FOR EXAMPLE- COUMADIN, PLAVIX, AGGRENOX, PLATEL, PRADAXA, OR XARELTO) NO . WHEN WAS YOUR LAST DOSE? DATE: TIME: . NEUROLOGY: HAVE YOU FALLEN IN THE PAST 6 MONTHS? NO . ANY NEW EXTREMITY NUMBNESS OR WEAKNESS? NO . CARDIOLOGY: DO YOU HAVE A PACEMAKER OR DEFIBRILLATOR? NO . RESPIRATORY: HAVE YOU BEEN SICK IN THE PAST WEEK? NO . FEVER NO . FLU LIKE SYMPTOMS? NO . COUGH NO . INTEGUMENTARY: DO YOU HAVE ANY RASHES OR OPEN SORES? NO . ALLERGIC/IMMUNO: ARE YOU ALLERGIC TO SHELLFISH OR IV DYE? YES, SHELLFISH . ANY NEW ALLERGIES? NO . PSYCHIATRIC: DO YOU HAVE THOUGHTS OF HURTING YOURSELF OR SOMEONE ELSE? NO . ARE YOU ABUSED, NEGLECTED, OR IN AN UNSAFE ENVIRONMENT? NO . ENDOCRINOLOGY: ARE YOU DIABETIC? NO . OTHER: DO YOU NEED ANY PRESCRIPTIONS? NO . IF YES, PLEASE LIST: ____ . ANY NEW PROBLEMS WITH YOUR MEDICATIONS? NO . WHEN DID YOU LAST EAT? ____ . WHEN DID YOU LAST DRINK? ____ . WHAT DID YOU LAST DRINK? ____ . NAME OF PERSON DRIVING YOU HOME? ____ . DO YOU HAVE ANY OTHER QUESTIONS OR CONCERNS NO . VITAL SIGNS WT 163.4 LBS, HT 62 IN, BMI 29.88 INDEX, BP 133/78 MM HG, HR 93 /MIN, RR 18 /MIN, TEMP 97.7 F, OXYGEN SAT % 95%, REVIEWED BY: CS (DONE AT 1258). EXAMINATION : PATIENT IS ALERT O X 3 AND COOPERATIVE. PATIENT IS ALERT O X 3 AND COOPERATIVE. PATIENT HAS TENDERNESS, ALLODYNIA AND HYPERPATHIA IN THE LEFT SHOULDER. PATIENT'S LEFT ARM IS WEAKER AT FLEXION AND EXTENSION. ASSESSMENTS PAIN IN LEFT SHOULDER - M25.512 (PRIMARY) OTHER CHRONIC PAIN - G89.29 TREATMENT PAIN IN LEFT SHOULDER NOTES: WE DISCUSSED SEVERAL ISSUES WITH MRS. ELAINE'S PAIN MANAGEMENT CASE. AT THIS TIME THE PATIENT WILL CONTINUE WITH THE SAME MEDICATION REGIME BEFORE. PATIENT IS USING TYLENOL, AMITRIPTYLINE, AND ACETAMINOPHEN FOR THE SOMATIC PAIN. PATIENT WILL ALSO START TIZANIDINE AT NIGHT FOR THE MUSCLE SPASMS AND PAIN. PATIENT DENIES ABUSE OF ANY MEDICATION, DENIES USE OF ILLEGAL SUBSTANCES, AND STATES SHE IS ONLY USING THE MEDICATION FOR PAIN MANAGEMENT. URINE TOXICOLOGY REPORT DONE ON 07/27/16 SHOWS CONSISTENT RESULTS WITH THE PATIENT'S MEDICATION LIST. PATIENT WILL SPEAK TO ROBERT JAY FROM [employer] ABOUT CREATING A NEW PROGRAM FOR THE PATIENT TO USE AT NIGHT. PATIENT DOES NOT WANT OT MOVE FORWARD WITH INTERVENTIONS AT THIS TIME. MRS. ELAINE WILL RETURN TO THE CLINIC IN 6 WEEKS. INSTRUCTIONS WERE GIVEN, QUESTIONS WERE ANSWERED, PATIENT REPORTS UNDERSTANDING AND AGREES WITH THE PLAN. I, LAKHWINDER THURMAN, DOCUMENTED THE ABOVE INFORMATION ACTING A SCRIBE FOR DR. MARES. I HAVE REVIEWED THE ABOVE DOCUMENT, WRITTEN BY LAKHWINDER DODD AND I VERIFY THAT IT IS ACCURATE. OTHERS REFILL TRAMADOL HCL TABLET, 50 MG, 1 TABLET NEEDED, ORALLY CODE D FOR CHRONIC PAIN ), BEFORE BEDTIME FOR PAIN MDD1, 90 DAYS, 90, REFILLS 0 REFILL AMITRIPTYLINE HCL TABLET, 50 MG, 1 TABLET, ORALLY, AT BEDTIME, 30 DAY(S), 30, REFILLS 1 REFILL ACETAMINOPHEN TABLET, 500 MG, 2 TABLET NEEDED, ORALLY FOR PAIN (WORKERS COMP), EVERY 6 HRS MDD4, 30 DAY(S), 200, REFILLS 1 START TIZANIDINE HCL TABLET, 2 MG, 1 TABLET NEEDED, ORALLY FOR SPSMS AND PAIN, BEFORE BEDTIME MAY REPEAT IN 4 HRS MDD2, 30 DAY(S), 20, REFILLS 1 PROCEDURES PN WORKMANS' COMP OPINION IN YOUR OPINION, WAS THE INCIDENT THAT THE PATIENT DESCRIBED THE COMPETENT MEDICAL CAUSE OF THIS INJURY/ILLNESS? YES ARE THE PATIENT'S COMPLAINTS CONSISTENT WITH HIS/HER HISTORY OF THE INJURY/ILLNESS? YES IS THE PATIENT'S HISTORY OF THE INJURY/ILLNESS CONSISTENT WITH YOUR OBJECTIVE FINDING? YES WHAT IS THE PERCENTAGE OF TEMPORARY IMPAIRMENT? MODERATE TO MARKED = 66.7% IS THE PATIENT WORKING? NO DOCTOR ON SITE: JEREMY TOWNSEND MD PROCEDURE CODES FA211 ESTABILISHED PATIENT [facility] FACILITY CHARGE G8427 DOC MEDS VERIFIED W/PT OR RE G8730 PAIN ASSESS POS TOOL F/U PLAN DOC DISPOSITION & COMMUNICATION FOLLOW UP 3 WEEKS ELECTRONICALLY SIGNED BY JEREMY MARES MD ON 12/05/2016 AT 03:34 PM EDT DISCLAIMER : THIS IS A VISIT SUMMARY EXTRACTED FROM THE [employer] CHART. IT IS NOT A COPY OF THE [employer] PROGRESS NOTE. [facility]
== END ==
LOC: M PAIN 13:00
PROVIDERS: ATTEND Anesthesiology
DX: G89.29 Other chronic pain (principal); M25.512 Pain in left shoulder; Z79.891 Long term (current) use of opiate analgesic; Z79.899 Other long term (current) drug therapy; Z88.0 Allergy status to penicillin; Z91.013 Allergy to seafood

== ENCOUNTER → 2017-03-06 | Outpatient (CLI) | payer OTHER ==
--- NOTE | 2017-03-21 00:43 | ECWPNPC ---
PATIENT NAME: MIKY ELAINE : 1960 GENDER: FEMALE VISIT DATE: 03/06/2017 DISCHARGE DATE: 03/06/17 1006 VISIT LOCKED DATE TIME: PHYSICIAN: JEREMY MARES RESOURCE: JEREMY MARES REASON FOR APPOINTMENT 1. W/C LEFT SHOULDER PAIN HISTORY OF PRESENT ILLNESS HISTORY OF PRESENT ILLNESS: 56 YEAR OLD FEMALE PATIENT WITH HISTORY OF CHRONIC LEFT SHOULDER PAIN. PATIENT DESCRIBES THE PAIN ACHING, BURNING, SHARP, STABBING, TENDER, THROBBING, SORE, SHOOTING AND HAVING IT ALL THE TIME WITH A PAIN SCORE OF 3 TO 7 OVER 10 DURING THE LAST MONTH. PATIENT REPORTS THAT SHE WAS MOVING HEAVY BOXES OF MEAT OFF A PALLET AND INJURED HER LEFT SHOULDER. PATIENT NOTED SOME SORENESS IMMEDIATELY AND TWO HOURS LATER HER ARM WAS VERY PAINFUL. PATIENT REPORTS THAT SHE HAS TRIED PHYSICAL THERAPY IN THE PAST AND STATES THAT IT DOES NOT AID IN PAIN RELIEF. PATIENT HAS RECEIVED 3 SHOULDER SURGERIES SINCE THE ACCIDENT. PATIENT REPORTS THAT THE DCS IS WORKING AND HELPING WITH PAIN RELIEF. CURRENTLY THE PATIENT IS USING TRAMADOL AND AMITRIPTYLINE AT NIGHT TO AID IN PAIN RELIEF. MRS. ELAINE STATES THAT WITHOUT THE MEDICATION SHE WOULD BE UNABLE TO SLEEP. PATIENT DENIES UNEXPLAINABLE WEIGHT LOSS, FEVER, CHILLS, NEW CHANGES ON HER URINARY OR BOWEL CONTROL. FALL RISK SCREENING: SCREENING :NO FALLS IN THE PAST YEAR CURRENT MEDICATIONS TAKING MULTIVITAMIN TABLET CHEWABLE 1 TAB ORALLY DAILY TAKING ACETAMINOPHEN 500 MG TABLET 2 TABLET NEEDED ORALLY FOR PAIN (WORKERS COMP) EVERY 6 HRS MDD4 TAKING TRAMADOL HCL 50 MG TABLET 1 TABLET NEEDED ORAL Q8H PRN MDD3 TAKING AMITRIPTYLINE HCL 50 MG TABLET 1 TABLET ORALLY AT BEDTIME TAKING TIZANIDINE HCL 2 MG TABLET 1 TABLET NEEDED ORALLY FOR SPSMS AND PAIN BEFORE BEDTIME MAY REPEAT IN 4 HRS MDD2 TAKING GABAPENTIN 300 MG CAPSULE 1 CAPSULE ORALLY BEFORE BEDTIME MEDICATION LIST REVIEWED AND RECONCILED WITH THE PATIENT PAST MEDICAL HISTORY DCS PLACED 4 YEARS AGO ALLERGIES PENICILLIN (FOR ALLERGIES USE ONLY): DIFFICULTY BREATHING: ALLERGY SHELLFISH: FACE AND FINGERS SWELL: ALLERGY SURGICAL HISTORY DCS C SECTION X3 LEFT SHOULDER SURGERY X3 SOCIAL HISTORY GENERAL: TOBACCO USE ARE YOU A: NONSMOKER . GNOSTICISM [id number] MORMON LANGUAGE LANGUAGES SPOKEN:[place] LEARNING BARRIERS / SPECIAL NEEDS BARRIERS TO LEARNING?NO HEARING IMPAIRED?NO VISION IMPAIRED?YES :CORRECTIVE LENSES COGNITIVELY IMPAIRED?NO READINESS TO LEARN?YES LEARNING PREFERENCES?NO LEARNING CAPABILITIES PRESENT?YES EMOTIONAL BARRIERS?NO SPECIAL DEVICES?NO HOME VISITS NURSE NEEDED?NO NEW PATIENT PAIN DIARY TODAY'S VISIT NOTES, FROM 0-10, WHAT LEVEL IS YOUR PAIN TODAY? 0. PAIN CLINIC PFS, CLERGY, PUBLIC HEALTH REFERRALS PFS REFERRAL NEEDED?NO CLERGY REFERRAL NEEDED?NO PUBLIC HEALTH REFERRAL NEEDED?NO WAS THE PROVIDER NOTIFIED OF ANY PERTINENT INFO?YES HAS THE PATIENT BEEN EDUCATED REGARDING HIS/HER PLAN OF CARE?YES HAS THE PATIENT BEEN EDUCATED REGARDING PAIN, THE RISK FOR PAIN, THE IMPORTANCE OF EFFECTIVE PAIN MANAGEMENT, AND THE PAIN ASSESSMENT PROCESS?YES ADVANCE DIRECTIVES HEALTH CARE PROXY?NO WOULD YOU LIKE MORE INFORMATION?YES GIVEN 12/05/16 DO YOU HAVE A DNR?NO WOULD YOU LIKE MORE INFORMATION?NO LIVING WILL?NO WOULD YOU LIKE MORE INFORMATION?NO POWER OF E BUSINESS CONSULTANT?NO WOULD YOU LIKE MORE INFORMATION?NO HOSPITALIZATION/MAJOR DIAGNOSTIC PROCEDURE SURGERY RELATED REVIEW OF SYSTEMS REVIEWED BY: PROVIDER: JEREMY MARES MD . CONSTITUTIONAL: ANY CHANGE IN YOUR MEDICAL CONDITION? NO . CHILLS NO . FEVER NO . INFECTION: DO YOU HAVE NEW INFECTIONS? NO . DO YOU HAVE HISTORY OF MRSA? NO . MUSCULOSKELETAL: ANY NEW PATTERNS OF PAIN OR NUMBNESS? NO . GASTROENTEROLOGY: ANY NEW CHANGE IN BOWEL CONTROL? NO . GENITOURINARY: ANY NEW CHANGE IN BLADDER CONTROL? NO . IS THERE A CHANCE YOU COULD BE ? NO . HEMATOLOGY/LYMPH: DO YOU TAKE ANY BLOOD THINNERS? (FOR EXAMPLE- COUMADIN, PLAVIX, AGGRENOX, PLATEL, PRADAXA, OR XARELTO) NO . WHEN WAS YOUR LAST DOSE? DATE: TIME: . NEUROLOGY: HAVE YOU FALLEN IN THE PAST 6 MONTHS? NO . ANY NEW EXTREMITY NUMBNESS OR WEAKNESS? NO . CARDIOLOGY: DO YOU HAVE A PACEMAKER OR DEFIBRILLATOR? NO . RESPIRATORY: HAVE YOU BEEN SICK IN THE PAST WEEK? NO . FEVER NO . FLU LIKE SYMPTOMS? NO . COUGH NO . INTEGUMENTARY: DO YOU HAVE ANY RASHES OR OPEN SORES? NO . ALLERGIC/IMMUNO: ARE YOU ALLERGIC TO SHELLFISH OR IV DYE? YES, SHELLFISH . ANY NEW ALLERGIES? NO . PSYCHIATRIC: DO YOU HAVE THOUGHTS OF HURTING YOURSELF OR SOMEONE ELSE? NO . ARE YOU ABUSED, NEGLECTED, OR IN AN UNSAFE ENVIRONMENT? NO . ENDOCRINOLOGY: ARE YOU DIABETIC? NO . OTHER: DO YOU NEED ANY PRESCRIPTIONS? NO . IF YES, PLEASE LIST: ____ . ANY NEW PROBLEMS WITH YOUR MEDICATIONS? NO . WHEN DID YOU LAST EAT? ____ . WHEN DID YOU LAST DRINK? ____ . WHAT DID YOU LAST DRINK? ____ . NAME OF PERSON DRIVING YOU HOME? ____ . DO YOU HAVE ANY OTHER QUESTIONS OR CONCERNS NO . VITAL SIGNS WT 166.8 LBS, HT 62 IN, BMI 30.50 INDEX, BP 149/91 MM HG, HR 87 /MIN, RR 16 /MIN, TEMP 97.5 F, OXYGEN SAT % 96%, NA INITIALS TL 0842, REVIEWED BY: EM. EXAMINATION : PATIENT IS ALERT O X 3 AND COOPERATIVE. PATIENT HAS TENDERNESS AND HYPERPATHIA THROUGH OUT THE LEFT SHOULDER. PATIENT'S LEFT ARM IS WEAKER AT FLEXION AND EXTENSION. PATIENT ABLE TO ABDUCT THE LEFT ARM TO SHOULDER LEVEL. X-RAY OF THE LEFT SHOULDER DONE ON 08/20/2009 SHOWS NO EVIDENCE OF FRACTURE OR DISLOCATION. ASSESSMENTS PAIN IN LEFT SHOULDER - M25.512 (PRIMARY) OTHER CHRONIC PAIN - G89.29 LEFT SHOULDER NEUROPATHY. TREATMENT PAIN IN LEFT SHOULDER NOTES: WE DISCUSSED SEVERAL ISSUES WITH MRS. ELAINE'S PAIN MANAGEMENT CASE. AT THIS TIME THE PATIENT WILL CONTINUE WITH THE SAME MEDICATION REGIME BEFORE. I WOULD LIKE THE PATIENT TO START USING GABAPENTIN AT NIGHT TO AID WITH THE NEUROPATHIC PAIN. PATIENT WAS ADVISED TO STOP THE MEDICATION IF SHE HAS ANY ADVERSE SIDE EFFECTS FROM THE MEDICATION. SHE WILL SEE IF SHE DOES NOT NEED THE TRAMADOL DURING THE NIGHT. PATIENT WILL CONTINUE TO USE TYLENOL AND AMITRIPTYLINE FOR THE SOMATIC PAIN. PATIENT WILL PERFORM A URINE TOXICOLOGY AT TODAY'S VISIT. AT THIS TIME NO INTERVENTIONS WILL BE HELD. PATIENT WILL FOLLOW UP IN SEVERAL WEEKS. INSTRUCTIONS WERE GIVEN, QUESTIONS WERE ANSWERED, PATIENT REPORTS UNDERSTANDING AND AGREES WITH THE PLAN. I, LAKHWINDER THURMAN, DOCUMENTED THE ABOVE INFORMATION ACTING A SCRIBE FOR DR. MARES. I HAVE REVIEWED THE ABOVE DOCUMENT, WRITTEN BY LAKHWINDER DODD AND I VERIFY THAT IT IS ACCURATE. OTHERS REFILL GABAPENTIN CAPSULE, 300 MG, 1 CAPSULE, ORALLY, BEFORE BEDTIME, 30 DAY(S), 30, REFILLS 1 PROCEDURE CODES FA211 ESTABILISHED PATIENT [facility] CHARGE Z9741 DOC MEDS VERIFIED W/PT OR RE F7165 PAIN ASSESS POS TOOL F/U PLAN DOC DISPOSITION & COMMUNICATION FOLLOW UP 3 WEEKS ELECTRONICALLY SIGNED BY JEREMY MARES MD ON 03/20/2017 AT 07:04 PM EST DISCLAIMER : THIS IS A VISIT SUMMARY EXTRACTED FROM THE [employer] CHART. IT IS NOT A COPY OF THE [employer] PROGRESS NOTE. [facility]
== END ==
LOC: M PAIN 08:30
PROVIDERS: ATTEND Anesthesiology
DX: G89.29 Other chronic pain (principal); M25.512 Pain in left shoulder; Z88.0 Allergy status to penicillin; Z91.013 Allergy to seafood; Z79.891 Long term (current) use of opiate analgesic; Z79.899 Other long term (current) drug therapy

== ENCOUNTER → 2017-04-05 | Outpatient (CLI) | payer OTHER | LOC: M PAIN 15:30 | DX: G89.29 Other chronic pain (principal); M25.512 Pain in left shoulder; Z88.0 Allergy status to penicillin; Z91.013 Allergy to seafood; Z79.899 Other long term (current) drug therapy; Z96.9 Presence of functional implant, unspecified | CPT/HCPCS: G0463 ==

== ENCOUNTER → 2017-06-01 | Outpatient (CLI) | payer OTHER | LOC: M PAIN 11:30 | DX: G89.29 Other chronic pain (principal); M25.512 Pain in left shoulder; Z88.0 Allergy status to penicillin; Z91.013 Allergy to seafood | CPT/HCPCS: G0463 ==

== ENCOUNTER → 2017-06-23 | Outpatient (CLI) | payer OTHER | LOC: M WUC 12:27 | DX: S50.11XA Contusion of right forearm, initial encounter (principal); W18.30XA Fall on same level, unspecified, initial encounter; Y92.009 Unspecified place in unspecified non-institutional (private) residence as the place of occurrence of the external cause | CPT/HCPCS: 73090 ==

== ENCOUNTER → 2017-07-02 | Outpatient (CLI) | payer OTHER | LOC: M PAIN 08:45 | DX: M25.512 Pain in left shoulder (principal); G89.29 Other chronic pain; Z79.899 Other long term (current) drug therapy; Z79.891 Long term (current) use of opiate analgesic; Z88.0 Allergy status to penicillin; Z91.013 Allergy to seafood | CPT/HCPCS: G0463 ==

== ENCOUNTER → 2017-08-02 | Outpatient (REF) | payer MEDICARE, OTHER ==
[2017-08-02 20:07] LABS: HEMATOCRIT 42.2 % (36.0-47.0); HEMOGLOBIN 13.8 g/dl (12.0-15.5); MEAN CORPUSCULAR HEMOGLOBIN 29.4 pg (27.0-33.0); MEAN CORPUSCULAR HGB CONC 32.7 g/dl (32.0-36.5); MEAN CORPUSCULAR VOLUME 89.8 fl (80.0-96.0); PLATELET COUNT, AUTOMATED 486 10^3/uL (150-450); RED CELL DISTRIBUTION WIDTH 14.3 % (11.5-14.5); WHITE BLOOD COUNT 5.4 10^3/uL (4.0-10.0)
[2017-08-02 20:18] LABS: ALBUMIN 3.9 GM/DL (3.2-5.2); ALBUMIN/GLOBULIN RATIO 1.18 (1.00-1.93); ALKALINE PHOSPHATASE 74 U/L (45-117); ALT/SGPT 16 U/L (12-78); ANION GAP 7 MEQ/L (8-16); AST/SGOT 13 U/L (7-37); BILIRUBIN,TOTAL 0.4 MG/DL (0.2-1.0); BLOOD UREA NITROGEN 8 MG/DL (7-18); CALCIUM LEVEL 9.2 MG/DL (8.5-10.1); CARBON DIOXIDE LEVEL 28 MEQ/L (21-32); CHLORIDE LEVEL 108 MEQ/L (98-107); CREATININE FOR GFR 0.91 MG/DL (0.55-1.30); FREE T4 1.11 NG/DL (0.76-1.46); GLOMERULAR FILTRATION RATE > 60.0 (>51); GLUCOSE, FASTING 70 MG/DL (70-100); SODIUM LEVEL 143 MEQ/L (136-145); TOTAL PROTEIN 7.2 GM/DL (6.4-8.2)
[2017-08-03 08:27] LABS: FOLATE 6.2 NG/ML; TOTAL 25(OH) VITAMIN D 16.6 NG/ML (30.0-100.0); VITAMIN B12 LEVEL 210 PG/ML
== END ==
LOC: M SFHCADAM 15:05
DX: R41.3 Other amnesia (principal); G90.512 Complex regional pain syndrome I of left upper limb; F32.0 Major depressive disorder, single episode, mild; Z79.899 Other long term (current) drug therapy
CPT/HCPCS: 82746

== ENCOUNTER → 2017-09-03 | Outpatient (CLI) | payer OTHER, MEDICARE | LOC: M PAIN 15:00 | DX: M25.512 Pain in left shoulder (principal); E53.8 Deficiency of other specified B group vitamins; Z79.899 Other long term (current) drug therapy; Z88.0 Allergy status to penicillin; Z88.8 Allergy status to other drugs, medicaments and biological substances; Z91.013 Allergy to seafood | CPT/HCPCS: G0463 ==

== ENCOUNTER → 2017-09-17 | Outpatient (CLI) | payer OTHER ==
[2017-09-17 10:55] LABS: VITAMIN B12 LEVEL 515 PG/ML
[2017-09-17 10:56] LABS: FOLATE 3.9 NG/ML
== END ==
LOC: M LAB 09:59
DX: D51.9 Vitamin B12 deficiency anemia, unspecified (principal)
CPT/HCPCS: 82746

== ENCOUNTER → 2017-11-12 | Outpatient (CLI) | payer OTHER | LOC: M PAIN 10:15 | DX: G89.29 Other chronic pain (principal); M25.512 Pain in left shoulder; E55.9 Vitamin D deficiency, unspecified; E53.8 Deficiency of other specified B group vitamins; F03.90 Unspecified dementia, unspecified severity, without behavioral disturbance, psychotic disturbance, mood disturbance, and anxiety; Z79.891 Long term (current) use of opiate analgesic; Z79.899 Other long term (current) drug therapy; Z88.0 Allergy status to penicillin; Z88.8 Allergy status to other drugs, medicaments and biological substances; Z91.013 Allergy to seafood | CPT/HCPCS: G0463 ==

== ENCOUNTER 2017-11-26 09:44 | Emergency (ER) | payer OTHER ==
[2017-11-26 10:45] LABS: HEMATOCRIT 43.1 % (36.0-47.0); HEMOGLOBIN 14.7 g/dl (12.0-15.5); MEAN CORPUSCULAR HEMOGLOBIN 29.5 pg (27.0-33.0); MEAN CORPUSCULAR HGB CONC 34.1 g/dl (32.0-36.5); MEAN CORPUSCULAR VOLUME 86.4 fl (80.0-96.0); PLATELET COUNT, AUTOMATED 433 10^3/uL (150-450); RED BLOOD COUNT 4.99 10^6/uL (4.00-5.40); RED CELL DISTRIBUTION WIDTH 13.9 % (11.5-14.5)
[2017-11-26 11:22] LABS: ALBUMIN 4.2 GM/DL (3.2-5.2); ALBUMIN/GLOBULIN RATIO 1.24 (1.00-1.93); ALKALINE PHOSPHATASE 80 U/L (45-117); ALT/SGPT 17 U/L (12-78); ANION GAP 11 MEQ/L (8-16); AST/SGOT 16 U/L (7-37); BILIRUBIN,DIRECT 0.2 MG/DL (0.0-0.2); BILIRUBIN,TOTAL 0.7 MG/DL (0.2-1.0); BLOOD UREA NITROGEN 7 MG/DL (7-18); CALCIUM LEVEL 9.5 MG/DL (8.5-10.1); CARBON DIOXIDE LEVEL 24 MEQ/L (21-32); CHLORIDE LEVEL 108 MEQ/L (98-107); CREATININE FOR GFR 0.83 MG/DL (0.55-1.30); ETHYL ALCOHOL (ETHANOL) < 0.003 % (0.000-0.010); GLOMERULAR FILTRATION RATE > 60.0 (>51); GLUCOSE, FASTING 94 MG/DL (70-100); POTASSIUM SERUM 3.5 MEQ/L (3.5-5.1); SALICYLATE LEVEL < 1.7 MG/DL (5.0-30.0); SODIUM LEVEL 143 MEQ/L (136-145); TOTAL PROTEIN 7.6 GM/DL (6.4-8.2)
[2017-11-26 11:23] LABS: ACETAMINOPHEN LEVEL < 2.0 UG/ML (10.0-30.0)
[2017-11-26 15:35] LABS: AMPHETAMINES LEVEL URINE NEGATIVE (NEGATIVE); BARBITURATES URINE NEGATIVE (NEGATIVE); BENZODIAZEPINES URINE NEGATIVE (NEGATIVE); CANNABINOIDS URINE NEGATIVE (NEGATIVE); COCAINE METABOLITE URINE NEGATIVE (NEGATIVE); METHADONE URINE NEGATIVE (NEGATIVE); OPIATES URINE NEGATIVE (NEGATIVE); PHENCYCLIDINE URINE NEGATIVE (NEGATIVE)
[2017-11-26] MEDS: ADACEL/BOOSTRIX VACCINE (DIPHTH/PERTUSS/ACELL/TETANUS)0.5ML SYR (90715) IM (19:33)
[2017-11-26 20:16] LABS: APPEARANCE, URINE CLOUDY (CLEAR); BACTERIA, URINE AUTO NEGATIVE (NEGATIVE); BILIRUBIN, URINE AUTO NEGATIVE (NEGATIVE); BLOOD, URINE BLOOD NEGATIVE (NEGATIVE); COLOR, URINE YELLOW (YELLOW); GLUCOSE, URINE (UA) AUTO NEGATIVE (NEGATIVE); KETONE, URINE AUTO TRACE mg/dL (NEGATIVE); LEUKOCYTE ESTERASE, URINE AUTO NEGATIVE (NEGATIVE); MUCUS, URINE SMALL (NEGATIVE); NITRITE, URINE AUTO NEGATIVE (NEGATIVE); PROTEIN, URINE AUTO NEGATIVE (NEGATIVE); RBC, URINE AUTO 1 /HPF (0-3); SPECIFIC GRAVITY URINE AUTO 1.024 (1.002-1.035); SQUAMOUS EPITHELIAL CELL UR AU 3 /HPF (0-6); WBC, URINE AUTO 1 /HPF (0-3)
== END 2017-11-27 14:31 | disposition home or self-care (01) ==
LOC: M ED 11-27 14:31
DX: F03.90 Unspecified dementia, unspecified severity, without behavioral disturbance, psychotic disturbance, mood disturbance, and anxiety (principal); R00.1 Bradycardia, unspecified; Z91.5 Personal history of self-harm; F32.9 Major depressive disorder, single episode, unspecified; R07.9 Chest pain, unspecified; Z91.013 Allergy to seafood; Z88.0 Allergy status to penicillin
CPT/HCPCS: 90715

== ENCOUNTER → 2018-01-14 | Outpatient (CLI) | payer OTHER | LOC: M PAIN 08:45 | DX: M25.512 Pain in left shoulder (principal); G89.29 Other chronic pain; E53.8 Deficiency of other specified B group vitamins; F03.90 Unspecified dementia, unspecified severity, without behavioral disturbance, psychotic disturbance, mood disturbance, and anxiety; Z79.899 Other long term (current) drug therapy; Z88.0 Allergy status to penicillin; Z88.8 Allergy status to other drugs, medicaments and biological substances; Z91.013 Allergy to seafood | CPT/HCPCS: G0463 ==

== ENCOUNTER → 2018-04-09 | Outpatient (CLI) | payer OTHER ==
[~2018-04-09] MED LIST changes: +ACET500T15 PO
--- NOTE | 2018-04-29 01:01 | ECWPNPC ---
PATIENT NAME: MIKY ELAINE : 1960 GENDER: FEMALE VISIT DATE: 04/09/2018 DISCHARGE DATE: 04/09/18 1450 VISIT LOCKED DATE TIME: PHYSICIAN: GABRIEL LAST RESOURCE: GABRIEL LAST REASON FOR APPOINTMENT 1. W/C HISTORY OF PRESENT ILLNESS HISTORY OF PRESENT ILLNESS: PAIN THE PATIENT DESCRIBES THE PAIN... THE PATIENT DESCRIBES THE PAIN... THE PATIENT DESCRIBES THE PAIN... THE PATIENT DESCRIBES THE PAIN... THE PATIENT DESCRIBES THE PAIN... THE PATIENT DESCRIBES THE PAIN... THE PATIENT DESCRIBES THE PAIN... THE PATIENT DESCRIBES THE PAIN... THE PATIENT DESCRIBES THE PAIN... HERE FOR F/U AND MANAGEMENT OF PERSISTENT LEFT SHOULDER AND ARM PAIN.WE ARE FOLLOWING HER FOR CHRONIC PAIN ASSOCIATED WITH WORK INJURY 1998 . COMPLAINING OF RIGHT HAND BEING COLD. USING DCS INTERMITTENTLY BUT IT DOESNT SEEM TO BE WORKING WELL AND SHE HASNT BEEN USING IT.CURRENTLY USING TRAMADOL 50MG TID 2 TAB FOR MDD6,GABAPENTIN 300MG AT HS, AMITRIPTYLINE 25MG AT BEDTIME AND TIZANIDINE 4MG IN AFTERNOON. REPORTS THAT THESE MEDICATIONS ARE EFFECTIVE AT REDUCING PAIN AND KEEPING HER FUNCTIONAL. DENIES ADVERSE SIDE EFFECTS.RATING PAIN VAS 10/10. FALL RISK SCREENING: SCREENING :NO FALLS IN THE PAST YEAR CURRENT MEDICATIONS TAKING MULTIVITAMIN TABLET CHEWABLE 1 TAB ORALLY DAILY TAKING VITAMIN B COMPLEX 100 - INJECTABLE INJECTION TAKING TRAMADOL HCL 50 MG TABLET 1 TO 2 TABLET NEEDED ORAL FOR PAIN Q8H PRN MDD5 TAKING IBUPROFEN 800 MG TABLET 1 TABLET WITH FOOD OR MILK NEEDED ORALLY FOR PAIN EVERY 6 HOURS NEEDED MDD3 TAKING AMITRIPTYLINE HCL 50 MG TABLET 1 TABLET ORALLY AT BEDTIME TAKING VITAMIN B-12 1000 MCG TABLET 1 TABLET ORALLY ONCE A DAY TAKING SERTRALINE HCL 25 MG TABLET 1 TABLET ORALLY ONCE A DAY TAKING DONEZEPIL HCL 10 MG TABLET ONE TAB ORALLY Q DAY MEDICATION LIST REVIEWED AND RECONCILED WITH THE PATIENT PAST MEDICAL HISTORY DCS PLACED OVER 10 YEARS AGO COMPLEX REGIONAL PAIN SYNDROME LUE - FOLLOWED BY PAIN CLINIC (DISABLED) - WORKERS COMP - HSS TENS DEVICE LEFT POSTERIOR THORAX VITAMIN D DEFICIENCY VITAMIN B12 DEFICIENCY - NEGATIVE ANTI-PARIETAL ANTIBODY B12 INJECTIONS GIVEN THEN STARTED ON PO 07/2017 DEMENTIA - FOLLOWING WITH NEUROLOGY DEPRESSION - FOLLOWING WITH PSYCHIATRY ALLERGIES PENICILLIN (FOR ALLERGIES USE ONLY): DIFFICULTY BREATHING: ALLERGY SHELLFISH: FACE AND FINGERS SWELL: ALLERGY GABAPENTIN: NAUSEA: SIDE EFFECTS SURGICAL HISTORY DCS C SECTION X3 LEFT SHOULDER SURGERY X3 HYSTERECTOMY TENS UNIT LEFT SHOULDER - PER DR. MARES FAMILY HISTORY MOTHER: , OF CANCER IN HER 80S (UNKNOWN CANCER) NO H/O BREAST CANCER/COLON CANCERNO CAD, DM. SOCIAL HISTORY GENERAL: TOBACCO USE ARE YOU A:NONSMOKER NEVER SMOKER ALCOHOL SCREENING DID YOU HAVE A DRINK CONTAINING ALCOHOL IN THE PAST YEAR?YES HOW OFTEN DID YOU HAVE SIX OR MORE DRINKS ON ONE OCCASION IN THE PAST YEAR?NEVER (0 POINTS) HOW MANY DRINKS DID YOU HAVE ON A TYPICAL DAY WHEN YOU WERE DRINKING IN THE PAST YEAR?1 OR 2 (0 POINTS) HOW OFTEN DID YOU HAVE A DRINK CONTAINING ALCOHOL IN THE PAST YEAR?MONTHLY OR LESS (1 POINT) POINTS1 INTERPRETATIONNEGATIVE RECREATIONAL DRUG USE DRUG USE?NO SEXUAL HX HAD SEX IN THE LAST 12 MONTHS (VAGINAL, ORAL, OR ANAL)?NO LMP:HYSTER HAVE YOU EVER HAD AN STD?NO EPISCOPALIAN [id number] [employer]U LANGUAGE LANGUAGES SPOKEN:MALAYSIAN LEARNING BARRIERS / SPECIAL NEEDS BARRIERS TO LEARNING?NO HEARING IMPAIRED?NO VISION IMPAIRED?YES COGNITIVELY IMPAIRED?NO :CORRECTIVE LENSES READINESS TO LEARN?YES LEARNING PREFERENCES?NO LEARNING CAPABILITIES PRESENT?YES EMOTIONAL BARRIERS?NO SPECIAL DEVICES?NO POWDER WORKER NEEDED?NO DOMESTIC VIOLENCE STATUS: DO YOU FEEL SAFE IN YOUR ENVIRONMENT?YES OCCUPATION: [employer] DISABILITY. DIET: REGULAR. EXERCISE: WALKS. MARITAL STATUS: . OTHERS AT HOME: SPOUSE. NEW PATIENT PAIN DIARY FROM 0-10, WHAT LEVEL IS YOUR PAIN TODAY?10 PAIN CLINIC PFS, CLERGY, PUBLIC HEALTH REFERRALS PFS REFERRAL NEEDED?NO CLERGY REFERRAL NEEDED?NO PUBLIC HEALTH REFERRAL NEEDED?NO WAS THE PROVIDER NOTIFIED OF ANY PERTINENT INFO?YES HAS THE PATIENT BEEN EDUCATED REGARDING HIS/HER PLAN OF CARE?YES HAS THE PATIENT BEEN EDUCATED REGARDING PAIN, THE RISK FOR PAIN, THE IMPORTANCE OF EFFECTIVE PAIN MANAGEMENT, AND THE PAIN ASSESSMENT PROCESS?YES ADVANCE DIRECTIVE ADVANCE DIRECTIVE DISCUSSED WITH PATIENT:YES HCP INFORMATION GIVEN TO PT 04/09/18 LAS REVIEWED WITH PATIENT 01/14/18 0909 JSREVIEWED WITH PATIENT 04/09/18 1400 LAS. HOSPITALIZATION/MAJOR DIAGNOSTIC PROCEDURE SURGERY RELATED MENTAL HEALTH 09/2017 REVIEW OF SYSTEMS REVIEWED BY: PROVIDER: GABRIEL MANCUSO . CONSTITUTIONAL: ANY CHANGE IN YOUR MEDICAL CONDITION? PT STATES SHE HAS BEEN DIAGNOSED WITH EARLY STAGE ALZHEIMER'S DISEASE THROUGH NEUROLOGIST . CHILLS NO . FEVER NO . INFECTION: DO YOU HAVE NEW INFECTIONS? NO . DO YOU HAVE HISTORY OF MRSA? NO . MUSCULOSKELETAL: ANY NEW PATTERNS OF PAIN OR NUMBNESS? NO . GASTROENTEROLOGY: ANY NEW CHANGE IN BOWEL CONTROL? PT REPORTS RECENT LOOSE STOOLS, . GENITOURINARY: ANY NEW CHANGE IN BLADDER CONTROL? NO . IS THERE A CHANCE YOU COULD BE ? NO . HEMATOLOGY/LYMPH: DO YOU TAKE ANY BLOOD THINNERS? (FOR EXAMPLE- COUMADIN, PLAVIX, AGGRENOX, PLATEL, PRADAXA, OR XARELTO) NO . WHEN WAS YOUR LAST DOSE? DATE: TIME: . NEUROLOGY: HAVE YOU FALLEN IN THE PAST 6 MONTHS? YES PT REPORTS SHE LOST HER BALANCE AND FELL ABOUT THREE WEEKS AGO, HITTING HER HEAD ON THE COUCH. HER HEAD HAS A BRUISE, OTHERWISE PT DENIES INJURY. . ANY NEW EXTREMITY NUMBNESS OR WEAKNESS? NO . CARDIOLOGY: DO YOU HAVE A PACEMAKER OR DEFIBRILLATOR? NO . RESPIRATORY: HAVE YOU BEEN SICK IN THE PAST WEEK? NO . FEVER NO . FLU LIKE SYMPTOMS? NO . COUGH NO . INTEGUMENTARY: DO YOU HAVE ANY RASHES OR OPEN SORES? NO . ALLERGIC/IMMUNO: ARE YOU ALLERGIC TO SHELLFISH OR IV DYE? NO . ANY NEW ALLERGIES? NO . PSYCHIATRIC: DO YOU HAVE THOUGHTS OF HURTING YOURSELF OR SOMEONE ELSE? NO . ARE YOU ABUSED, NEGLECTED, OR IN AN UNSAFE ENVIRONMENT? NO . ENDOCRINOLOGY: ARE YOU DIABETIC? NO . OTHER: DO YOU NEED ANY PRESCRIPTIONS? YES . IF YES, PLEASE LIST: ____TRAMADOL, IBUPROFEN, AMITRIPTYLINE . ANY NEW PROBLEMS WITH YOUR MEDICATIONS? NO . WHEN DID YOU LAST EAT? ____ . WHEN DID YOU LAST DRINK? ____ . WHAT DID YOU LAST DRINK? ____ . NAME OF PERSON DRIVING YOU HOME? ____ . DO YOU HAVE ANY OTHER QUESTIONS OR CONCERNS NO . VITAL SIGNS WT 146.8 LBS, HT 62 IN, BMI 26.85 INDEX, BP 139/74 MM HG, HR 63 /MIN, RR 18 /MIN, TEMP 97.0 F, OXYGEN SAT % 95%, NA INITIALS AW 1345, REVIEWED BY: JONAH. EXAMINATION GENERAL EXAMINATION: LUNGS:LUNG SOUNDS ARE CLEAR. HEART:HEART RATE REGULAR. MUSCULOSKELETAL:EQUAL STRONG CASINO FLOORPERSON STRENGTH BILAT HANDS.ABDUCTION LEFT ARM LIMITED TO 40 DEGREES. LEFT SHOULDER WITH WELL HEALED SCAR OVER LEFT SHOULDER.TENDER TO TOUCH OVER LEFT SHOULDER. ASSESSMENTS PAIN IN LEFT SHOULDER - M25.512 (PRIMARY) CHRONIC PRESCRIPTION OPIATE USE - Z79.891 OTHER CHRONIC PAIN - G89.29 TREATMENT PAIN IN LEFT SHOULDER REFILL TRAMADOL HCL TABLET, 50 MG, 1 TO 2 TABLET NEEDED, ORAL FOR PAIN, Q8H PRN MDD5, 30 DAY(S), 150, REFILLS 1 REFILL IBUPROFEN TABLET, 800 MG, 1 TABLET WITH FOOD OR MILK NEEDED, ORALLY FOR PAIN, Q8H PRN MDD3, 30 DAY(S), 90, REFILLS 1 REFILL AMITRIPTYLINE HCL TABLET, 50 MG, 1 TABLET, ORALLY, AT BEDTIME, 30 DAY(S), 30, REFILLS 1 NOTES: ISTOP REGISTRY REVIEWED AND DEMONSTRATES COMPLLIANCE. (REF # [id number] ) BRINGS IN MEDICATIONS WHICH IS APPROPRIATE FOR WHAT WAS DISPENSED. RECENT URINE TOXICOLOGY REVIEWED. NO UNAUTHORIZED MEDICATIONS. NO ILLICIT SUBSTANCES AND PRESCRIBED MEDICATIONS WERE PRESENT. , RISKS AND BENEFITS OF NARCOTIC/OPIOD MEDICATIONS WERE REVIEWED WITH PATIENT - THIS INCLUDES BUT IS NOT LIMITED TO RISK OF DEPENDANCE/DEVELOPMENT OF ADDICTION, MOOD DISTURBANCE AND DEPRESSION, OSTEOPOROSIS, HORMONAL AND LABIDAL CHANGES, RESPIRATORY DEPRESSION AND . PATIENT IS ADVISED NOT TO DRIVE OR DRINK ALCOHOL WHILE ON THESE MEDICATIONS. PROCEDURES PN WORKMANS' COMP OPINION IN YOUR OPINION, WAS THE INCIDENT THAT THE PATIENT DESCRIBED THE COMPETENT MEDICAL CAUSE OF THIS INJURY/ILLNESS? YES ARE THE PATIENT'S COMPLAINTS CONSISTENT WITH HIS/HER HISTORY OF THE INJURY/ILLNESS? YES IS THE PATIENT'S HISTORY OF THE INJURY/ILLNESS CONSISTENT WITH YOUR OBJECTIVE FINDING? YES WHAT IS THE PERCENTAGE OF TEMPORARY IMPAIRMENT? MODERATE TO MARKED = 66.7% IS THE PATIENT WORKING? NO DOCTOR ON SITE: JEREMY TOWNSEND MD PROCEDURE CODES FA211 ESTABILISHED PATIENT [facility] FACILITY CHARGE DISPOSITION & COMMUNICATION FOLLOW UP 2 MONTHS ELECTRONICALLY SIGNED BY JAMEE GE ON 04/28/2018 AT 12:40 PM EST DISCLAIMER : THIS IS A VISIT SUMMARY EXTRACTED FROM THE [employer] CHART. IT IS NOT A COPY OF THE [employer] PROGRESS NOTE. WALE
== END ==
LOC: M PAIN 13:45
PROVIDERS: ATTEND Nurse Practitioner Family
DX: M25.512 Pain in left shoulder (principal); G89.29 Other chronic pain; E53.8 Deficiency of other specified B group vitamins; F32.9 Major depressive disorder, single episode, unspecified; G30.0 Alzheimer's disease with early onset; Z79.899 Other long term (current) drug therapy; Z88.0 Allergy status to penicillin; Z88.8 Allergy status to other drugs, medicaments and biological substances; Z91.013 Allergy to seafood

== ENCOUNTER → 2018-06-10 | Outpatient (CLI) | payer OTHER ==
--- NOTE | 2018-06-11 02:24 | ECWPNPC ---
PATIENT NAME: MIKY ELAINE : 1960 GENDER: FEMALE VISIT DATE: 06/10/2018 DISCHARGE DATE: 06/10/18921 VISIT LOCKED DATE TIME: PHYSICIAN: GABRIEL LAST RESOURCE: GABRIEL LAST REASON FOR APPOINTMENT 1. SHOULDER W/C HISTORY OF PRESENT ILLNESS HISTORY OF PRESENT ILLNESS: PAIN THE PATIENT DESCRIBES THE PAIN... THE PATIENT DESCRIBES THE PAIN... THE PATIENT DESCRIBES THE PAIN... THE PATIENT DESCRIBES THE PAIN... THE PATIENT DESCRIBES THE PAIN... THE PATIENT DESCRIBES THE PAIN... THE PATIENT DESCRIBES THE PAIN... THE PATIENT DESCRIBES THE PAIN... THE PATIENT DESCRIBES THE PAIN... THE PATIENT DESCRIBES THE PAIN... HERE FOR F/U AND MANAGEMENT OF PERSISTENT LEFT SHOULDER AND ARM PAIN.WE ARE FOLLOWING HER FOR CHRONIC PAIN ASSOCIATED WITH WORK INJURY 1998 . COMPLAINING OF RIGHT HAND BEING COLD. USING DCS INTERMITTENTLY BUT IT DOESNT SEEM TO BE WORKING WELL AND SHE HASNT BEEN USING IT.CURRENTLY USING TRAMADOL 50MG TID 2 TAB FOR MDD6,GABAPENTIN 300MG AT HS, AMITRIPTYLINE 25MG AT BEDTIME AND TIZANIDINE 4MG IN AFTERNOON. REPORTS THAT THESE MEDICATIONS ARE EFFECTIVE AT REDUCING PAIN AND KEEPING HER FUNCTIONAL. DENIES ADVERSE SIDE EFFECTS.RATING PAIN VAS 8/10. FALL RISK SCREENING: SCREENING : NO FALLS IN THE PAST YEAR. CURRENT MEDICATIONS TAKING MULTIVITAMIN TABLET CHEWABLE 1 TAB ORALLY DAILY TAKING VITAMIN B COMPLEX 100 - INJECTABLE INJECTION TAKING VITAMIN B-12 1000 MCG TABLET 1 TABLET ORALLY ONCE A DAY TAKING SERTRALINE HCL 25 MG TABLET 1 TABLET ORALLY ONCE A DAY TAKING DONEZEPIL HCL 10 MG TABLET ONE TAB ORALLY Q DAY TAKING TRAMADOL HCL 50 MG TABLET 1 TO 2 TABLET NEEDED ORAL FOR PAIN Q8H PRN MDD5 TAKING IBUPROFEN 800 MG TABLET 1 TABLET WITH FOOD OR MILK NEEDED ORALLY FOR PAIN Q8H PRN MDD3 TAKING AMITRIPTYLINE HCL 50 MG TABLET 1 TABLET ORALLY AT BEDTIME MEDICATION LIST REVIEWED AND RECONCILED WITH THE PATIENT PAST MEDICAL HISTORY DCS PLACED OVER 10 YEARS AGO COMPLEX REGIONAL PAIN SYNDROME LUE - FOLLOWED BY PAIN CLINIC (DISABLED) - WORKERS COMP - HSS TENS DEVICE LEFT POSTERIOR THORAX VITAMIN D DEFICIENCY VITAMIN B12 DEFICIENCY - NEGATIVE ANTI-PARIETAL ANTIBODY B12 INJECTIONS GIVEN THEN STARTED ON PO 07/2017 DEMENTIA - FOLLOWING WITH NEUROLOGY DEPRESSION - FOLLOWING WITH PSYCHIATRY ALLERGIES PENICILLIN (FOR ALLERGIES USE ONLY): DIFFICULTY BREATHING: ALLERGY SHELLFISH: FACE AND FINGERS SWELL: ALLERGY GABAPENTIN: NAUSEA: SIDE EFFECTS SURGICAL HISTORY DCS C SECTION X3 LEFT SHOULDER SURGERY X3 HYSTERECTOMY TENS UNIT LEFT SHOULDER - PER DR. MARES FAMILY HISTORY MOTHER: , OF CANCER IN HER 80S (UNKNOWN CANCER) NO H/O BREAST CANCER/COLON CANCERNO CAD, DM. SOCIAL HISTORY GENERAL: TOBACCO USE ARE YOU A:NONSMOKER NEVER SMOKER ALCOHOL SCREENING DID YOU HAVE A DRINK CONTAINING ALCOHOL IN THE PAST YEAR?YES HOW OFTEN DID YOU HAVE SIX OR MORE DRINKS ON ONE OCCASION IN THE PAST YEAR?NEVER (0 POINTS) HOW MANY DRINKS DID YOU HAVE ON A TYPICAL DAY WHEN YOU WERE DRINKING IN THE PAST YEAR?1 OR 2 (0 POINTS) HOW OFTEN DID YOU HAVE A DRINK CONTAINING ALCOHOL IN THE PAST YEAR?MONTHLY OR LESS (1 POINT) POINTS1 INTERPRETATIONNEGATIVE RECREATIONAL DRUG USE DRUG USE?NO SEXUAL HX HAD SEX IN THE LAST 12 MONTHS (VAGINAL, ORAL, OR ANAL)?NO LMP:HYSTER HAVE YOU EVER HAD AN STD?NO MANDAEN [id number] MORAVIAN LANGUAGE LANGUAGES SPOKEN:SLOVAK LEARNING BARRIERS / SPECIAL NEEDS BARRIERS TO LEARNING?NO HEARING IMPAIRED?NO VISION IMPAIRED?YES COGNITIVELY IMPAIRED?NO :CORRECTIVE LENSES READINESS TO LEARN?YES LEARNING PREFERENCES?NO LEARNING CAPABILITIES PRESENT?YES EMOTIONAL BARRIERS?NO SPECIAL DEVICES?NO ORTHOTICS TECHNICIAN NEEDED?NO DOMESTIC VIOLENCE STATUS: DO YOU FEEL SAFE IN YOUR ENVIRONMENT?YES OCCUPATION: [employer] DISABILITY. DIET: REGULAR. EXERCISE: WALKS. MARITAL STATUS: . OTHERS AT HOME: SPOUSE. NEW PATIENT PAIN DIARY FROM 0-10, WHAT LEVEL IS YOUR PAIN TODAY?10 PAIN CLINIC PFS, CLERGY, PUBLIC HEALTH REFERRALS PFS REFERRAL NEEDED?NO CLERGY REFERRAL NEEDED?NO PUBLIC HEALTH REFERRAL NEEDED?NO WAS THE PROVIDER NOTIFIED OF ANY PERTINENT INFO?YES HAS THE PATIENT BEEN EDUCATED REGARDING HIS/HER PLAN OF CARE?YES HAS THE PATIENT BEEN EDUCATED REGARDING PAIN, THE RISK FOR PAIN, THE IMPORTANCE OF EFFECTIVE PAIN MANAGEMENT, AND THE PAIN ASSESSMENT PROCESS?YES ADVANCE DIRECTIVE ADVANCE DIRECTIVE DISCUSSED WITH PATIENT:YES HCP INFORMATION GIVEN TO PT REVIEWED WITH PATIENT 01/14/18 0909 JSREVIEWED WITH PATIENT 04/09/18 1400 LAS. HOSPITALIZATION/MAJOR DIAGNOSTIC PROCEDURE SURGERY RELATED MENTAL HEALTH 09/2017 REVIEW OF SYSTEMS REVIEWED BY: PROVIDER: GABRIEL MANCUSO . CONSTITUTIONAL: ANY CHANGE IN YOUR MEDICAL CONDITION? NO, PT STATES SHE HAS STARTED S/S OF ALZHEIMERS DISEASE. PT STATES SHE HAS SPOKEN TO PCP ABOUT THIS . CHILLS NO . FEVER NO . INFECTION: DO YOU HAVE NEW INFECTIONS? NO . DO YOU HAVE HISTORY OF MRSA? NO . MUSCULOSKELETAL: ANY NEW PATTERNS OF PAIN OR NUMBNESS? NO . GASTROENTEROLOGY: ANY NEW CHANGE IN BOWEL CONTROL? NO . GENITOURINARY: ANY NEW CHANGE IN BLADDER CONTROL? NO . IS THERE A CHANCE YOU COULD BE ? NO . HEMATOLOGY/LYMPH: DO YOU TAKE ANY BLOOD THINNERS? (FOR EXAMPLE- COUMADIN, PLAVIX, AGGRENOX, PLATEL, PRADAXA, OR XARELTO) NO . WHEN WAS YOUR LAST DOSE? DATE: TIME: . NEUROLOGY: HAVE YOU FALLEN IN THE PAST 12 MONTHS? NO . ANY NEW EXTREMITY NUMBNESS OR WEAKNESS? YES, LEFT ARM NUMBNESS AND WEAKNESS X 2 WEEKS . CARDIOLOGY: DO YOU HAVE A PACEMAKER OR DEFIBRILLATOR? YES, DCS . RESPIRATORY: HAVE YOU BEEN SICK IN THE PAST WEEK? NO . FEVER NO . FLU LIKE SYMPTOMS? NO . COUGH NO . INTEGUMENTARY: DO YOU HAVE ANY RASHES OR OPEN SORES? NO . ALLERGIC/IMMUNO: ARE YOU ALLERGIC TO IV DYE? NO . ANY NEW ALLERGIES? NO . PSYCHIATRIC: DO YOU HAVE THOUGHTS OF HURTING YOURSELF OR SOMEONE ELSE? NO . ARE YOU ABUSED, NEGLECTED, OR IN AN UNSAFE ENVIRONMENT? NO . ENDOCRINOLOGY: ARE YOU DIABETIC? NO . OTHER: DO YOU NEED ANY PRESCRIPTIONS? NO . IF YES, PLEASE LIST: ____ . ANY NEW PROBLEMS WITH YOUR MEDICATIONS? NO . WHEN DID YOU LAST EAT? ____ . WHEN DID YOU LAST DRINK? ____ . WHAT DID YOU LAST DRINK? ____ . NAME OF PERSON DRIVING YOU HOME? ____ . DO YOU HAVE ANY OTHER QUESTIONS OR CONCERNS NO . VITAL SIGNS WT 143 LBS, HT 62 IN, BMI 26.15 INDEX, BP 138/77 MM HG, HR 59 /MIN, RR 16 /MIN, TEMP 96.5 F, OXYGEN SAT % 99%, NA INITIALS SC 08:59, REVIEWED BY: EM. EXAMINATION GENERAL EXAMINATION: LUNGS:LUNG SOUNDS ARE CLEAR. HEART:HEART RATE REGULAR. MUSCULOSKELETAL:EQUAL STRONG BOARDING ROOM FIXER STRENGTH BILAT HANDS.ABDUCTION LEFT ARM LIMITED TO 40 DEGREES. LEFT SHOULDER WITH WELL HEALED SCAR OVER LEFT SHOULDER.TENDER TO TOUCH OVER LEFT SHOULDER. ASSESSMENTS PAIN IN LEFT SHOULDER - M25.512 (PRIMARY) CHRONIC PRESCRIPTION OPIATE USE - Z79.891 OTHER CHRONIC PAIN - G89.29 TREATMENT PAIN IN LEFT SHOULDER CONTINUE TRAMADOL HCL TABLET, 50 MG, 1 TO 2 TABLET NEEDED, ORAL FOR PAIN, Q8H PRN MDD5 CONTINUE IBUPROFEN TABLET, 800 MG, 1 TABLET WITH FOOD OR MILK NEEDED, ORALLY FOR PAIN, Q8H PRN MDD3 CONTINUE AMITRIPTYLINE HCL TABLET, 50 MG, 1 TABLET, ORALLY, AT BEDTIME NOTES: ROBERT TO CONTACT PATIENT. PROCEDURES PN WORKMANS' COMP OPINION IN YOUR OPINION, WAS THE INCIDENT THAT THE PATIENT DESCRIBED THE COMPETENT MEDICAL CAUSE OF THIS INJURY/ILLNESS? YES ARE THE PATIENT'S COMPLAINTS CONSISTENT WITH HIS/HER HISTORY OF THE INJURY/ILLNESS? YES IS THE PATIENT'S HISTORY OF THE INJURY/ILLNESS CONSISTENT WITH YOUR OBJECTIVE FINDING? YES WHAT IS THE PERCENTAGE OF TEMPORARY IMPAIRMENT? MODERATE TO MARKED = 66.7% IS THE PATIENT WORKING? NO DOCTOR ON SITE: JEREMY TOWNSEND MD PROCEDURE CODES FA211 ESTABILISHED PATIENT [facility] CHARGE DISPOSITION & COMMUNICATION FOLLOW UP 3 MONTHS ELECTRONICALLY SIGNED BY JAMEE GE ON 06/10/2018 AT 09:28 AM EDT DISCLAIMER : THIS IS A VISIT SUMMARY EXTRACTED FROM THE [employer] CHART. IT IS NOT A COPY OF THE [employer] PROGRESS NOTE. WALE
== END ==
LOC: M PAIN 08:45
PROVIDERS: ATTEND Nurse Practitioner Family
DX: M25.512 Pain in left shoulder (principal); G89.29 Other chronic pain; Z86.59 Personal history of other mental and behavioral disorders; E55.9 Vitamin D deficiency, unspecified; E53.8 Deficiency of other specified B group vitamins; F03.90 Unspecified dementia, unspecified severity, without behavioral disturbance, psychotic disturbance, mood disturbance, and anxiety; Z88.0 Allergy status to penicillin; Z91.013 Allergy to seafood; Z97.8 Presence of other specified devices; Z79.899 Other long term (current) drug therapy

== ENCOUNTER → 2018-08-19 | Outpatient (CLI) | payer MEDICARE ==
--- NOTE | 2018-08-19 14:35 | REPMRS ---
Patient History The patient states she had a clinical breast exam in 03/2018. Baseline Mammogram Patient is postmenopausal. Family history of unknown cancer at age 50 or over in mother. 3D TOMOSYNTHESIS WAS PERFORMED. Digital Woman Screen Mammo: August 19, 2018 - Exam #: [id number] Bilateral CC and MLO view(s) were taken. Technologist: Yanelis Pratt, Technologist FINDINGS: The breast tissue is heterogeneously dense. This may lower the sensitivity of mammography. There is no evidence of cancer on this mammogram. Assessment: BI-RADS/ACR category 2 mammogram. Benign Findings. Recommendation Routine screening mammogram of both breasts in 1 year (for women over age 40). This mammogram was interpreted with the aid of an FDA-approved computer-aided dectection system. Electronically Signed By: Loc Sigala MD 08/19/18 2525
== END ==
LOC: M WHC 13:12
PROVIDERS: ATTEND Physician Assistant
DX: Z12.31 Encounter for screening mammogram for malignant neoplasm of breast (principal); Z78.0 Asymptomatic menopausal state; Z80.8 Family history of malignant neoplasm of other organs or systems

== ENCOUNTER → 2018-09-04 | Outpatient (REF) | payer OTHER, MEDICARE ==
[2018-09-04 12:41] LABS: HEMATOCRIT 39.7 % (36.0-47.0); HEMOGLOBIN 13.3 g/dl (12.0-15.5); MEAN CORPUSCULAR HEMOGLOBIN 30.4 pg (27.0-33.0); MEAN CORPUSCULAR HGB CONC 33.5 g/dl (32.0-36.5); MEAN CORPUSCULAR VOLUME 90.8 fl (80.0-96.0); PLATELET COUNT, AUTOMATED 348 10^3/uL (150-450); RED BLOOD COUNT 4.37 10^6/uL (4.00-5.40); WHITE BLOOD COUNT 3.8 10^3/uL (4.0-10.0)
[2018-09-04 13:12] LABS: ALBUMIN 3.8 GM/DL (3.2-5.2); ALT/SGPT 16 U/L (12-78); BILIRUBIN,TOTAL 0.4 MG/DL (0.2-1.0); BLOOD UREA NITROGEN 8 MG/DL (7-18); CALCIUM LEVEL 9.6 MG/DL (8.5-10.1); CARBON DIOXIDE LEVEL 28 MEQ/L (21-32); CHLORIDE LEVEL 109 MEQ/L (98-107); CHOLESTEROL LEVEL 315 MG/DL (<200); CREATININE FOR GFR 0.81 MG/DL (0.55-1.30); FREE T4 0.98 NG/DL (0.76-1.46); GLOMERULAR FILTRATION RATE > 60.0 (>51); GLUCOSE, FASTING 81 MG/DL (70-100); HDL CHOLESTEROL 87 MG/DL (>40); LDL CHOLESTEROL 211 MG/DL (<100); NON-HDL-C 228 MG/DL; POTASSIUM SERUM 4.2 MEQ/L (3.5-5.1); SODIUM LEVEL 142 MEQ/L (136-145); TOTAL PROTEIN 6.7 GM/DL (6.4-8.2); TRIGLYCERIDES LEVEL 86 MG/DL (<150)
[2018-09-04 13:15] LABS: FOLATE 4.9 NG/ML; VITAMIN B12 LEVEL 825 PG/ML
== END ==
LOC: M SFHCADAM 09:34
PROVIDERS: ATTEND Physician Assistant
DX: Z13.220 Encounter for screening for lipoid disorders (principal); E53.8 Deficiency of other specified B group vitamins; E55.9 Vitamin D deficiency, unspecified

== ENCOUNTER → 2018-10-30 | Outpatient (CLI) | payer OTHER, MEDICARE ==
--- NOTE | 2018-11-16 00:15 | ECWPNPC ---
PATIENT NAME: MIKY ELAINE : 1960 GENDER: FEMALE VISIT DATE: 10/30/2018 DISCHARGE DATE: 10/30/18 1354 VISIT LOCKED DATE TIME: PHYSICIAN: GABRIEL LAST RESOURCE: GABRIEL LAST REASON FOR APPOINTMENT 1. SHOULDER W/C HISTORY OF PRESENT ILLNESS HISTORY OF PRESENT ILLNESS: PAIN THE PATIENT DESCRIBES THE PAIN... THE PATIENT DESCRIBES THE PAIN... THE PATIENT DESCRIBES THE PAIN... THE PATIENT DESCRIBES THE PAIN... THE PATIENT DESCRIBES THE PAIN... THE PATIENT DESCRIBES THE PAIN... THE PATIENT DESCRIBES THE PAIN... THE PATIENT DESCRIBES THE PAIN... THE PATIENT DESCRIBES THE PAIN... THE PATIENT DESCRIBES THE PAIN... THE PATIENT DESCRIBES THE PAIN... HERE FOR F/U AND MANAGEMENT OF PERSISTENT LEFT SHOULDER AND ARM PAIN.WE ARE FOLLOWING HER FOR CHRONIC PAIN ASSOCIATED WITH WORK INJURY 1998 . COMPLAINING OF RIGHT HAND BEING COLD. USING DCS INTERMITTENTLY BUT IT DOESNT SEEM TO BE WORKING WELL AND SHE HASNT BEEN USING IT.CURRENTLY USING TRAMADOL 50MG TID 2 TAB FOR MDD6, AMITRIPTYLINE 25MG AT BEDTIME AND TIZANIDINE 4MG IN AFTERNOON. REPORTS THAT THESE MEDICATIONS ARE EFFECTIVE AT REDUCING PAIN AND KEEPING HER FUNCTIONAL. DENIES ADVERSE SIDE EFFECTS.RATING PAIN VAS 5/10. FALL RISK SCREENING: SCREENING :NO FALLS REPORTED IN THE LAST YEAR CURRENT MEDICATIONS TAKING VITAMIN D 1000 UNIT TABLET 1 TABLET ORALLY ONCE A DAY TAKING MULTIVITAMIN TABLET CHEWABLE 1 TAB ORALLY DAILY TAKING TRAMADOL HCL 50 MG TABLET 1 TO 2 TABLET NEEDED ORAL FOR PAIN Q8H PRN MDD5 TAKING IBUPROFEN 800 MG TABLET 1 TABLET WITH FOOD OR MILK NEEDED ORALLY FOR PAIN Q8H PRN MDD3 TAKING AMITRIPTYLINE HCL 50 MG TABLET 1 TABLET ORALLY AT BEDTIME TAKING VITAMIN B-12 1000 MCG TABLET 1 TABLET ORALLY ONCE A DAY TAKING SERTRALINE HCL 25 MG TABLET 1 TABLET ORALLY ONCE A DAY TAKING DONEZEPIL HCL 10 MG TABLET ONE TAB ORALLY Q DAY DISCONTINUED VITAMIN B COMPLEX 100 - INJECTABLE INJECTION MEDICATION LIST REVIEWED AND RECONCILED WITH THE PATIENT PAST MEDICAL HISTORY DCS PLACED OVER 10 YEARS AGO COMPLEX REGIONAL PAIN SYNDROME LUE - FOLLOWED BY PAIN CLINIC (DISABLED) - WORKERS COMP - HSS TENS DEVICE LEFT POSTERIOR THORAX VITAMIN D DEFICIENCY VITAMIN B12 DEFICIENCY - NEGATIVE ANTI-PARIETAL ANTIBODY B12 INJECTIONS GIVEN THEN STARTED ON PO 07/2017 DEMENTIA - FOLLOWING WITH NEUROLOGY DEPRESSION - FOLLOWED WITH PSYCHIATRY [address] FOWLER NO LONGER CARES FOR ADULTS - WE HAVE TAKEN OVER SERTRALINE SCRIPT 08/2018 HYPERCHOLESTEROLEMIA WITH LDL > 190 08/2018 ALLERGIES PENICILLIN (FOR ALLERGIES USE ONLY): DIFFICULTY BREATHING - ALLERGY SHELLFISH: FACE AND FINGERS SWELL - ALLERGY GABAPENTIN: NAUSEA - SIDE EFFECTS SURGICAL HISTORY DCS C SECTION X3 LEFT SHOULDER SURGERY X3 HYSTERECTOMY TENS UNIT LEFT SHOULDER - PER DR. MARSE FAMILY HISTORY MOTHER: , OF CANCER IN HER 80S (UNKNOWN CANCER) NO H/O BREAST CANCER/COLON CANCERNO CAD, DM. SOCIAL HISTORY GENERAL: TOBACCO USE ARE YOU A:NONSMOKER NEVER SMOKER OTHERS AT HOME: SPOUSE. DIET: REGULAR. LANGUAGE LANGUAGES SPOKEN:[place] LEONE[place] DOMESTIC VIOLENCE STATUS: DO YOU FEEL SAFE IN YOUR ENVIRONMENT?YES NEW PATIENT PAIN DIARY FROM 0-10, WHAT LEVEL IS YOUR PAIN TODAY?10 RECREATIONAL DRUG USE DRUG USE?NO EXERCISE: WALKS. LEARNING BARRIERS / SPECIAL NEEDS BARRIERS TO LEARNING?NO HEARING IMPAIRED?NO VISION IMPAIRED?YES COGNITIVELY IMPAIRED?NO :CORRECTIVE LENSES READINESS TO LEARN?YES LEARNING PREFERENCES?NO LEARNING CAPABILITIES PRESENT?YES EMOTIONAL BARRIERS?NO SPECIAL DEVICES?NO TABLE GAMES DUAL RATE SUPERVISOR NEEDED?NO PAIN CLINIC PFS, CLERGY, PUBLIC HEALTH REFERRALS PFS REFERRAL NEEDED?NO CLERGY REFERRAL NEEDED?NO PUBLIC HEALTH REFERRAL NEEDED?NO WAS THE PROVIDER NOTIFIED OF ANY PERTINENT INFO?YES HAS THE PATIENT BEEN EDUCATED REGARDING HIS/HER PLAN OF CARE?YES HAS THE PATIENT BEEN EDUCATED REGARDING PAIN, THE RISK FOR PAIN, THE IMPORTANCE OF EFFECTIVE PAIN MANAGEMENT, AND THE PAIN ASSESSMENT PROCESS?YES LATEX QUESTIONNAIRE LATEX ALLERGY : HAVE YOU EVER DEVELOPED ANY TYPE OF REACTION AFTER HANDLING LATEX PRODUCTS SUCH RUBBER GLOVES, CONDOMS, DIAPHRAGMS, BALLOONS, SOCKS, OR UNDERWEAR?NO LATEX ALLERGY : HAVE YOU EVER DEVELOPED ANY TYPE OF REACTION DURING OR AFTER DENTAL APPOINTMENT, VAGINAL/RECTAL EXAMINATION, SURGICAL PROCEDURE, OR ANY OTHER EXPOSURE?NO DATE ASKED : 09/12/2018 LATEX RISK : HAVE YOU EVER HAD ANY DIFFICULTY BREATHING OR HIVES AFTER EATING OR HANDLING ANY FRUITS, OR VEGETABLES; SUCH KIWI, BANANAS, STONE FRUITS, OR CHESTNUTSNO LATEX RISK : DO YOU HAVE A PREVIOUS PERSONAL HISTORY OF MORE THAN NINE SURGERIES, SPINA BIFIDA, OR REPEATED CATHERIZATIONS? NO LATEX RISK : ARE YOU FREQUENTLY EXPOSED TO LATEX PRODUCTS IN YOUR OCCUPATION?NO ADVANCE DIRECTIVE ADVANCE DIRECTIVE DISCUSSED WITH PATIENT:YES HCP INFORMATION GIVEN TO PT CHRISTIANITY [id number] GNOSTICIST MARITAL STATUS: . ALCOHOL SCREENING DID YOU HAVE A DRINK CONTAINING ALCOHOL IN THE PAST YEAR?YES HOW OFTEN DID YOU HAVE SIX OR MORE DRINKS ON ONE OCCASION IN THE PAST YEAR?NEVER (0 POINTS) HOW MANY DRINKS DID YOU HAVE ON A TYPICAL DAY WHEN YOU WERE DRINKING IN THE PAST YEAR?1 OR 2 (0 POINTS) HOW OFTEN DID YOU HAVE A DRINK CONTAINING ALCOHOL IN THE PAST YEAR?MONTHLY OR LESS (1 POINT) POINTS1 INTERPRETATIONNEGATIVE OCCUPATION: SSI DISABILITY. SEXUAL HX HAD SEX IN THE LAST 12 MONTHS (VAGINAL, ORAL, OR ANAL)?NO LMP:HYSTER HAVE YOU EVER HAD AN STD?NO REVIEWED WITH PATIENT 01/14/18 0909 JSREVIEWED WITH PATIENT 04/09/18 1400 LAS. HOSPITALIZATION/MAJOR DIAGNOSTIC PROCEDURE SURGERY RELATED MENTAL HEALTH 09/2017 REVIEW OF SYSTEMS REVIEWED BY: PROVIDER: GABRIEL MANCUSO . CONSTITUTIONAL: ANY CHANGE IN YOUR MEDICAL CONDITION? NO . CHILLS NO . FEVER NO . INFECTION: DO YOU HAVE NEW INFECTIONS? NO . DO YOU HAVE HISTORY OF MRSA? NO . MUSCULOSKELETAL: ANY NEW PATTERNS OF PAIN OR NUMBNESS? YES, INTERMITTENT PAIN TO LEFT ARM . GASTROENTEROLOGY: ANY NEW CHANGE IN BOWEL CONTROL? NO . GENITOURINARY: ANY NEW CHANGE IN BLADDER CONTROL? NO . IS THERE A CHANCE YOU COULD BE ? NO . HEMATOLOGY/LYMPH: DO YOU TAKE ANY BLOOD THINNERS? (FOR EXAMPLE- COUMADIN, PLAVIX, AGGRENOX, PLATEL, PRADAXA, OR XARELTO) NO . WHEN WAS YOUR LAST DOSE? DATE: TIME: . NEUROLOGY: HAVE YOU FALLEN IN THE PAST 12 MONTHS? NO . ANY NEW EXTREMITY NUMBNESS OR WEAKNESS? YES, LEFT ARM PAIN . CARDIOLOGY: DO YOU HAVE A PACEMAKER OR DEFIBRILLATOR? NO . RESPIRATORY: HAVE YOU BEEN SICK IN THE PAST WEEK? NO . FEVER NO . FLU LIKE SYMPTOMS? NO . COUGH NO . INTEGUMENTARY: DO YOU HAVE ANY RASHES OR OPEN SORES? NO . ALLERGIC/IMMUNO: ARE YOU ALLERGIC TO IV DYE? NO . ANY NEW ALLERGIES? NO . PSYCHIATRIC: DO YOU HAVE THOUGHTS OF HURTING YOURSELF OR SOMEONE ELSE? NO . ARE YOU ABUSED, NEGLECTED, OR IN AN UNSAFE ENVIRONMENT? NO . ENDOCRINOLOGY: ARE YOU DIABETIC? NO . OTHER: DO YOU NEED ANY PRESCRIPTIONS? NO . IF YES, PLEASE LIST: ____ . ANY NEW PROBLEMS WITH YOUR MEDICATIONS? NO . WHEN DID YOU LAST EAT? ____ . WHEN DID YOU LAST DRINK? ____ . WHAT DID YOU LAST DRINK? ____ . NAME OF PERSON DRIVING YOU HOME? ____ . DO YOU HAVE ANY OTHER QUESTIONS OR CONCERNS NO . VITAL SIGNS WT 137.6 LBS, HT 62 IN, BMI 25.16 INDEX, BP 129/63 MM HG, HR 48 /MIN, RR 18 /MIN, TEMP 97.6 F, OXYGEN SAT % 99%, NA INITIALS AW 1312, REVIEWED BY: EM. EXAMINATION GENERAL EXAMINATION: LUNGS:LUNG SOUNDS ARE CLEAR. HEART:HEART RATE REGULAR. MUSCULOSKELETAL:EQUAL STRONG MORTGAGE LOAN COUNSELOR STRENGTH BILAT HANDS.ABDUCTION LEFT ARM LIMITED TO 40 DEGREES. LEFT SHOULDER WITH WELL HEALED SCAR OVER LEFT SHOULDER.TENDER TO TOUCH OVER LEFT SHOULDER. ASSESSMENTS PAIN IN LEFT SHOULDER - M25.512 (PRIMARY) CHRONIC PRESCRIPTION OPIATE USE - Z79.891 OTHER CHRONIC PAIN - G89.29 TREATMENT PAIN IN LEFT SHOULDER REFILL TRAMADOL HCL TABLET, 50 MG, 1 TO 2 TABLET NEEDED, ORAL FOR PAIN, Q8H PRN MDD5, 30 DAYS, 150, REFILLS 2 CONTINUE AMITRIPTYLINE HCL TABLET, 50 MG, 1 TABLET, ORALLY, AT BEDTIME REFILL IBUPROFEN TABLET, 800 MG, 1 TABLET WITH FOOD OR MILK NEEDED, ORALLY FOR PAIN, Q8H PRN MDD3, 30 DAYS, 90, REFILLS 2 NOTES: ISTOP REGISTRY REVIEWED AND DEMONSTRATES COMPLLIANCE. BRINGS IN MEDICATIONS WHICH IS APPROPRIATE FOR WHAT WAS DISPENSED. RECENT URINE TOXICOLOGY REVIEWED. NO UNAUTHORIZED MEDICATIONS. NO ILLICIT SUBSTANCES AND PRESCRIBED MEDICATIONS WERE PRESENT. , RISKS AND BENEFITS OF NARCOTIC/OPIOD MEDICATIONS WERE REVIEWED WITH PATIENT - THIS INCLUDES BUT IS NOT LIMITED TO RISK OF DEPENDANCE/DEVELOPMENT OF ADDICTION, MOOD DISTURBANCE AND DEPRESSION, OSTEOPOROSIS, HORMONAL AND LABIDAL CHANGES, RESPIRATORY DEPRESSION AND . PATIENT IS ADVISED NOT TO DRIVE OR DRINK ALCOHOL WHILE ON THESE MEDICATIONSCONTACT ROBERT AT [employer] AND SET UP APPOINTMENT TO [facility] #[phone]-. PROCEDURES PN WORKMANS' COMP OPINION IN YOUR OPINION, WAS THE INCIDENT THAT THE PATIENT DESCRIBED THE COMPETENT MEDICAL CAUSE OF THIS INJURY/ILLNESS? YES ARE THE PATIENT'S COMPLAINTS CONSISTENT WITH HIS/HER HISTORY OF THE INJURY/ILLNESS? YES IS THE PATIENT'S HISTORY OF THE INJURY/ILLNESS CONSISTENT WITH YOUR OBJECTIVE FINDING? YES WHAT IS THE PERCENTAGE OF TEMPORARY IMPAIRMENT? MODERATE TO MARKED = 66.7% IS THE PATIENT WORKING? NO DOCTOR ON SITE: JEREMY TOWNSEND MD PROCEDURE CODES FA211 ESTABILISHED PATIENT [facility] CHARGE DISPOSITION & COMMUNICATION FOLLOW UP 3 MONTHS (REASON: MED MGMNT) ELECTRONICALLY SIGNED BY JAMEE GE ON 11/15/2018 AT 03:29 PM EDT DISCLAIMER : THIS IS A VISIT SUMMARY EXTRACTED FROM THE [employer] CHART. IT IS NOT A COPY OF THE [employer] PROGRESS NOTE. WALE
== END ==
LOC: M PAIN 13:00
PROVIDERS: ATTEND Nurse Practitioner Family
DX: M25.512 Pain in left shoulder (principal); G89.29 Other chronic pain; E55.9 Vitamin D deficiency, unspecified; E53.8 Deficiency of other specified B group vitamins; Z86.59 Personal history of other mental and behavioral disorders; E78.00 Pure hypercholesterolemia, unspecified; Z96.9 Presence of functional implant, unspecified; Z88.0 Allergy status to penicillin; Z88.8 Allergy status to other drugs, medicaments and biological substances; Z91.013 Allergy to seafood; Z79.899 Other long term (current) drug therapy

== ENCOUNTER → 2019-01-29 | Outpatient (CLI) | payer OTHER ==
--- NOTE | 2019-01-31 02:36 | ECWPNPC ---
PATIENT NAME: MIKY ELAINE : 1960 GENDER: FEMALE VISIT DATE: 01/29/2019 DISCHARGE DATE: 01/29/19 1032 VISIT LOCKED DATE TIME: PHYSICIAN: GABRIEL LAST RESOURCE: GABRIEL LAST REASON FOR APPOINTMENT 1. MED MGMNT HISTORY OF PRESENT ILLNESS HISTORY OF PRESENT ILLNESS: PAIN THE PATIENT DESCRIBES THE PAIN... THE PATIENT DESCRIBES THE PAIN... THE PATIENT DESCRIBES THE PAIN... THE PATIENT DESCRIBES THE PAIN... THE PATIENT DESCRIBES THE PAIN... THE PATIENT DESCRIBES THE PAIN... THE PATIENT DESCRIBES THE PAIN... THE PATIENT DESCRIBES THE PAIN... THE PATIENT DESCRIBES THE PAIN... THE PATIENT DESCRIBES THE PAIN... THE PATIENT DESCRIBES THE PAIN... THE PATIENT DESCRIBES THE PAIN... HERE FOR F/U AND MANAGEMENT OF PERSISTENT LEFT SHOULDER AND ARM PAIN.WE ARE FOLLOWING HER FOR CHRONIC PAIN ASSOCIATED WITH WORK INJURY 1998 . COMPLAINING OF RIGHT HAND BEING COLD. USING DCS AND THIS IS WORKING WELL AFTER RECENT ADJUSTMENT BY [facility].CURRENTLY USING TRAMADOL 50MG TID 2 TAB FOR MDD6, AMITRIPTYLINE 25MG AT BEDTIME AND IBUPROFEN. REPORTS THAT THESE MEDICATIONS ARE EFFECTIVE AT REDUCING PAIN AND KEEPING HER FUNCTIONAL. DENIES ADVERSE SIDE EFFECTS.RATING PAIN VAS 7/10. FALL RISK SCREENING: SCREENING :NO FALLS REPORTED IN THE LAST YEAR CURRENT MEDICATIONS TAKING VITAMIN D 1000 UNIT TABLET 1 TABLET ORALLY ONCE A DAY TAKING MULTIVITAMIN TABLET CHEWABLE 1 TAB ORALLY DAILY TAKING VITAMIN B-12 1000 MCG TABLET 1 TABLET ORALLY ONCE A DAY TAKING SERTRALINE HCL 25 MG TABLET 1 TABLET ORALLY ONCE A DAY TAKING DONEZEPIL HCL 10 MG TABLET ONE TAB ORALLY Q DAY TAKING TRAMADOL HCL 50 MG TABLET 1 TO 2 TABLET NEEDED ORAL FOR PAIN Q8H PRN MDD5 TAKING IBUPROFEN 800 MG TABLET 1 TABLET WITH FOOD OR MILK NEEDED ORALLY FOR PAIN Q8H PRN MDD3 TAKING AMITRIPTYLINE HCL 50 MG TABLET 1 TABLET ORALLY AT BEDTIME MEDICATION LIST REVIEWED AND RECONCILED WITH THE PATIENT PAST MEDICAL HISTORY DCS PLACED OVER 10 YEARS AGO COMPLEX REGIONAL PAIN SYNDROME LUE - FOLLOWED BY PAIN CLINIC (DISABLED) - WORKERS COMP - HSS TENS DEVICE LEFT POSTERIOR THORAX VITAMIN D DEFICIENCY VITAMIN B12 DEFICIENCY - NEGATIVE ANTI-PARIETAL ANTIBODY B12 INJECTIONS GIVEN THEN STARTED ON PO 07/2017 DEMENTIA - FOLLOWING WITH NEUROLOGY DEPRESSION - FOLLOWED WITH PSYCHIATRY [address] FOWLER NO LONGER CARES FOR ADULTS - WE HAVE TAKEN OVER SERTRALINE SCRIPT 08/2018 HYPERCHOLESTEROLEMIA WITH LDL > 190 08/2018 ALLERGIES PENICILLIN (FOR ALLERGIES USE ONLY): DIFFICULTY BREATHING - ALLERGY SHELLFISH: FACE AND FINGERS SWELL - ALLERGY GABAPENTIN: NAUSEA - SIDE EFFECTS SURGICAL HISTORY DCS C SECTION X3 LEFT SHOULDER SURGERY X3 HYSTERECTOMY TENS UNIT LEFT SHOULDER - PER DR. MARES FAMILY HISTORY MOTHER: , OF CANCER IN HER 80S (UNKNOWN CANCER) NO H/O BREAST CANCER/COLON CANCERNO CAD, DM. SOCIAL HISTORY GENERAL: TOBACCO USE ARE YOU A:NONSMOKER NEVER SMOKER OTHERS AT HOME: SPOUSE. DIET: REGULAR. LANGUAGE LANGUAGES SPOKEN:[place] CITIZEN DOMESTIC VIOLENCE STATUS: DO YOU FEEL SAFE IN YOUR ENVIRONMENT?YES NEW PATIENT PAIN DIARY FROM 0-10, WHAT LEVEL IS YOUR PAIN TODAY?7 RECREATIONAL DRUG USE DRUG USE?NO EXERCISE: WALKS. LEARNING BARRIERS / SPECIAL NEEDS BARRIERS TO LEARNING?NO HEARING IMPAIRED?NO VISION IMPAIRED?YES COGNITIVELY IMPAIRED?NO :CORRECTIVE LENSES READINESS TO LEARN?YES LEARNING PREFERENCES?NO LEARNING CAPABILITIES PRESENT?YES EMOTIONAL BARRIERS?NO SPECIAL DEVICES?NO CHIEF JAILER NEEDED?NO PAIN CLINIC PFS, CLERGY, PUBLIC HEALTH REFERRALS PFS REFERRAL NEEDED?NO CLERGY REFERRAL NEEDED?NO PUBLIC HEALTH REFERRAL NEEDED?NO WAS THE PROVIDER NOTIFIED OF ANY PERTINENT INFO?YES HAS THE PATIENT BEEN EDUCATED REGARDING HIS/HER PLAN OF CARE?YES HAS THE PATIENT BEEN EDUCATED REGARDING PAIN, THE RISK FOR PAIN, THE IMPORTANCE OF EFFECTIVE PAIN MANAGEMENT, AND THE PAIN ASSESSMENT PROCESS?YES LATEX QUESTIONNAIRE LATEX ALLERGY : HAVE YOU EVER DEVELOPED ANY TYPE OF REACTION AFTER HANDLING LATEX PRODUCTS SUCH RUBBER GLOVES, CONDOMS, DIAPHRAGMS, BALLOONS, SOCKS, OR UNDERWEAR?NO LATEX ALLERGY : HAVE YOU EVER DEVELOPED ANY TYPE OF REACTION DURING OR AFTER DENTAL APPOINTMENT, VAGINAL/RECTAL EXAMINATION, SURGICAL PROCEDURE, OR ANY OTHER EXPOSURE?NO LATEX RISK : HAVE YOU EVER HAD ANY DIFFICULTY BREATHING OR HIVES AFTER EATING OR HANDLING ANY FRUITS, OR VEGETABLES; SUCH KIWI, BANANAS, STONE FRUITS, OR CHESTNUTSNO LATEX RISK : DO YOU HAVE A PREVIOUS PERSONAL HISTORY OF MORE THAN NINE SURGERIES, SPINA BIFIDA, OR REPEATED CATHERIZATIONS? NO LATEX RISK : ARE YOU FREQUENTLY EXPOSED TO LATEX PRODUCTS IN YOUR OCCUPATION?NO DATE ASKED : 01/29/2019 ADVANCE DIRECTIVE ADVANCE DIRECTIVE DISCUSSED WITH PATIENT:YES HCP INFORMATION GIVEN TO PT YAZDANISM [id number] BUDDHISM MARITAL STATUS: . ALCOHOL SCREENING DID YOU HAVE A DRINK CONTAINING ALCOHOL IN THE PAST YEAR?YES HOW OFTEN DID YOU HAVE SIX OR MORE DRINKS ON ONE OCCASION IN THE PAST YEAR?NEVER (0 POINTS) HOW MANY DRINKS DID YOU HAVE ON A TYPICAL DAY WHEN YOU WERE DRINKING IN THE PAST YEAR?1 OR 2 (0 POINTS) HOW OFTEN DID YOU HAVE A DRINK CONTAINING ALCOHOL IN THE PAST YEAR?MONTHLY OR LESS (1 POINT) POINTS1 INTERPRETATIONNEGATIVE OCCUPATION: SSI DISABILITY. SEXUAL HX HAD SEX IN THE LAST 12 MONTHS (VAGINAL, ORAL, OR ANAL)?NO LMP:HYSTER HAVE YOU EVER HAD AN STD?NO REVIEWED WITH PATIENT 01/14/18 0909 JSREVIEWED WITH PATIENT 04/09/18 1400 LAS. HOSPITALIZATION/MAJOR DIAGNOSTIC PROCEDURE SURGERY RELATED MENTAL HEALTH 09/2017 REVIEW OF SYSTEMS REVIEWED BY: PROVIDER: GABRIEL MANCUSO . CONSTITUTIONAL: ANY CHANGE IN YOUR MEDICAL CONDITION? NO . CHILLS NO . FEVER NO . INFECTION: DO YOU HAVE NEW INFECTIONS? NO . DO YOU HAVE HISTORY OF MRSA? NO . MUSCULOSKELETAL: ANY NEW PATTERNS OF PAIN OR NUMBNESS? NO . GASTROENTEROLOGY: ANY NEW CHANGE IN BOWEL CONTROL? NO . GENITOURINARY: ANY NEW CHANGE IN BLADDER CONTROL? NO . IS THERE A CHANCE YOU COULD BE ? NO . HEMATOLOGY/LYMPH: DO YOU TAKE ANY BLOOD THINNERS? (FOR EXAMPLE- COUMADIN, PLAVIX, AGGRENOX, PLATEL, PRADAXA, OR XARELTO) NO . WHEN WAS YOUR LAST DOSE? DATE: TIME: . NEUROLOGY: HAVE YOU FALLEN IN THE PAST 12 MONTHS? NO . ANY NEW EXTREMITY NUMBNESS OR WEAKNESS? NO, DORSAL COLUMN STIMULATOR . CARDIOLOGY: DO YOU HAVE A PACEMAKER OR DEFIBRILLATOR? NO . RESPIRATORY: HAVE YOU BEEN SICK IN THE PAST WEEK? NO . FEVER NO . FLU LIKE SYMPTOMS? NO . COUGH NO . INTEGUMENTARY: DO YOU HAVE ANY RASHES OR OPEN SORES? NO . ALLERGIC/IMMUNO: ARE YOU ALLERGIC TO IV DYE? NO . ANY NEW ALLERGIES? NO . PSYCHIATRIC: DO YOU HAVE THOUGHTS OF HURTING YOURSELF OR SOMEONE ELSE? NO . ARE YOU ABUSED, NEGLECTED, OR IN AN UNSAFE ENVIRONMENT? NO . ENDOCRINOLOGY: ARE YOU DIABETIC? NO . OTHER: DO YOU NEED ANY PRESCRIPTIONS? YES - IBUPROFEN,TRAMADOL . IF YES, PLEASE LIST: ____ . ANY NEW PROBLEMS WITH YOUR MEDICATIONS? NO . WHEN DID YOU LAST EAT? ____ . WHEN DID YOU LAST DRINK? ____ . WHAT DID YOU LAST DRINK? ____ . NAME OF PERSON DRIVING YOU HOME? ____ . DO YOU HAVE ANY OTHER QUESTIONS OR CONCERNS ALZHEIMER'S . VITAL SIGNS WT 140.8 LBS, HT 62 IN, BMI 25.75 INDEX, BP 139/71 MM HG, HR 59 /MIN, RR 18 /MIN, TEMP 97.3 F, OXYGEN SAT % 100%, NA INITIALS AW 1004, REVIEWED BY: LS. EXAMINATION GENERAL EXAMINATION: LUNGS:LUNG SOUNDS ARE CLEAR. HEART:HEART RATE REGULAR. MUSCULOSKELETAL:EQUAL STRONG AIR TOOL OPERATOR STRENGTH BILAT HANDS.ABDUCTION LEFT ARM LIMITED TO 40 DEGREES. LEFT SHOULDER WITH WELL HEALED SCAR OVER LEFT SHOULDER.TENDER TO TOUCH OVER LEFT SHOULDER. ASSESSMENTS PAIN IN LEFT SHOULDER - M25.512 (PRIMARY) TREATMENT PAIN IN LEFT SHOULDER CONTINUE TRAMADOL HCL TABLET, 50 MG, 1 TO 2 TABLET NEEDED, ORAL FOR PAIN, Q8H PRN MDD5 CONTINUE IBUPROFEN TABLET, 800 MG, 1 TABLET WITH FOOD OR MILK NEEDED, ORALLY FOR PAIN, Q8H PRN MDD3 CONTINUE AMITRIPTYLINE HCL TABLET, 50 MG, 1 TABLET, ORALLY, AT BEDTIME PROCEDURES PN WORKMANS' COMP OPINION IN YOUR OPINION, WAS THE INCIDENT THAT THE PATIENT DESCRIBED THE COMPETENT MEDICAL CAUSE OF THIS INJURY/ILLNESS? YES ARE THE PATIENT'S COMPLAINTS CONSISTENT WITH HIS/HER HISTORY OF THE INJURY/ILLNESS? YES IS THE PATIENT'S HISTORY OF THE INJURY/ILLNESS CONSISTENT WITH YOUR OBJECTIVE FINDING? YES WHAT IS THE PERCENTAGE OF TEMPORARY IMPAIRMENT? MODERATE TO MARKED = 66.7% IS THE PATIENT WORKING? NO DOCTOR ON SITE: JEREMY TOWNSEND MD PROCEDURE CODES FA211 ESTABILISHED PATIENT [facility] CHARGE DISPOSITION & COMMUNICATION FOLLOW UP 3 MONTHS (REASON: W/C FOLLOW UP) ELECTRONICALLY SIGNED BY JAMEE GE ON 01/30/2019 AT 11:58 AM EDT DISCLAIMER : THIS IS A VISIT SUMMARY EXTRACTED FROM THE [employer] CHART. IT IS NOT A COPY OF THE [employer] PROGRESS NOTE. [facility]
== END ==
LOC: M PAIN 09:45
PROVIDERS: ATTEND Nurse Practitioner Family
DX: M25.512 Pain in left shoulder (principal); G90.512 Complex regional pain syndrome I of left upper limb; E55.9 Vitamin D deficiency, unspecified; E53.8 Deficiency of other specified B group vitamins; F03.90 Unspecified dementia, unspecified severity, without behavioral disturbance, psychotic disturbance, mood disturbance, and anxiety; F32.9 Major depressive disorder, single episode, unspecified; E78.00 Pure hypercholesterolemia, unspecified; Z79.891 Long term (current) use of opiate analgesic; Z79.899 Other long term (current) drug therapy; Z88.0 Allergy status to penicillin; Z91.013 Allergy to seafood; Z88.8 Allergy status to other drugs, medicaments and biological substances

== ENCOUNTER → 2019-04-07 | Outpatient (REF) | payer OTHER ==
[2019-04-07 17:07] LABS: ALBUMIN 3.6 GM/DL (3.2-5.2); ALT/SGPT 13 U/L (12-78); BILIRUBIN,TOTAL 0.5 MG/DL (0.2-1.0); BLOOD UREA NITROGEN 8 MG/DL (7-18); CALCIUM LEVEL 9.8 MG/DL (8.5-10.1); CARBON DIOXIDE LEVEL 27 MEQ/L (21-32); CHLORIDE LEVEL 108 MEQ/L (98-107); CHOLESTEROL LEVEL 268 MG/DL (<200); CHOLESTEROL RISK RATIO 3.573 (<5); CREATININE FOR GFR 0.83 MG/DL (0.55-1.30); GLOMERULAR FILTRATION RATE > 60.0 (>51); GLUCOSE, FASTING 77 MG/DL (70-100); HDL CHOLESTEROL 75 MG/DL (>40); LDL CHOLESTEROL 175 MG/DL (<100); NON-HDL-C 193 MG/DL; POTASSIUM SERUM 4.2 MEQ/L (3.5-5.1); SODIUM LEVEL 143 MEQ/L (136-145); TOTAL PROTEIN 6.8 GM/DL (6.4-8.2); TRIGLYCERIDES LEVEL 90 MG/DL (<150)
== END ==
LOC: M SFHCADAM 11:35
PROVIDERS: ATTEND Physician Assistant
DX: E78.00 Pure hypercholesterolemia, unspecified (principal)

== ENCOUNTER → 2019-04-28 | Outpatient (CLI) | payer OTHER ==
--- NOTE | 2019-04-29 06:38 | ECWPNPC ---
PATIENT NAME: MIKY ELAINE : 1960 GENDER: FEMALE VISIT DATE: 04/28/2019 DISCHARGE DATE: 04/28/19 1002 VISIT LOCKED DATE TIME: PHYSICIAN: GABRIEL LAST RESOURCE: GABRIEL LSAT REASON FOR APPOINTMENT 1. W/C 3 MONTHS HISTORY OF PRESENT ILLNESS HISTORY OF PRESENT ILLNESS: PAIN THE PATIENT DESCRIBES THE PAIN... HERE FOR F/U AND MANAGEMENT OF PERSISTENT LEFT SHOULDER AND ARM PAIN.WE ARE FOLLOWING HER FOR CHRONIC PAIN ASSOCIATED WITH WORK INJURY 1998 ..FOLLOWING WITH [place] SURGE[facility] REGARDING ZAPPING SENSATION IN HER LEFT ARM THAT HAS BEEN OCCURRING OVER THE PAST 2 MONTHS. SHE WAS REFERRED BY YISSEL [facility]CON [facility]. CURRENTLY USING TRAMADOL 50MG TID 2 TAB FOR MDD6, AMITRIPTYLINE 25MG AT BEDTIME AND IBUPROFEN. REPORTS THAT THESE MEDICATIONS ARE EFFECTIVE AT REDUCING PAIN AND KEEPING HER FUNCTIONAL. DENIES ADVERSE SIDE EFFECTS.RATING PAIN VAS 5/10. FALL RISK SCREENING: SCREENING :NO FALLS REPORTED IN THE LAST YEAR CURRENT MEDICATIONS TAKING VITAMIN D 1000 UNIT TABLET 1 TABLET ORALLY ONCE A DAY TAKING MULTIVITAMIN TABLET CHEWABLE 1 TAB ORALLY DAILY TAKING VITAMIN B-12 1000 MCG TABLET 1 TABLET ORALLY ONCE A DAY TAKING TRAMADOL HCL 50 MG TABLET 1 TO 2 TABLET NEEDED ORAL FOR PAIN Q8H PRN MDD5 TAKING IBUPROFEN 800 MG TABLET 1 TABLET WITH FOOD OR MILK NEEDED ORALLY FOR PAIN Q8H PRN MDD3 TAKING AMITRIPTYLINE HCL 50 MG TABLET 1 TABLET ORALLY AT BEDTIME TAKING SERTRALINE HCL 25 MG TABLET 1 TABLET ORALLY ONCE A DAY TAKING DONEZEPIL HCL 10 MG TABLET ONE TAB ORALLY Q DAY MEDICATION LIST REVIEWED AND RECONCILED WITH THE PATIENT PAST MEDICAL HISTORY DCS PLACED OVER 10 YEARS AGO - DR. ALLISON COMPLEX REGIONAL PAIN SYNDROME LUE - FOLLOWED BY PAIN CLINIC (DISABLED) - WORKERS COMP - HSS TENS DEVICE LEFT POSTERIOR THORAX VITAMIN D DEFICIENCY VITAMIN B12 DEFICIENCY - NEGATIVE ANTI-PARIETAL ANTIBODY B12 INJECTIONS GIVEN THEN STARTED ON PO 07/2017 DEMENTIA - FOLLOWING WITH NEUROLOGY DEPRESSION - FOLLOWED WITH PSYCHIATRY [address] FOWLER NO LONGER CARES FOR ADULTS - WE HAVE TAKEN OVER SERTRALINE SCRIPT 08/2018 HYPERCHOLESTEROLEMIA WITH LDL > 190 08/2018, ASCVD RISK = 2.4% 04/2019 ALLERGIES PENICILLIN (FOR ALLERGIES USE ONLY): DIFFICULTY BREATHING - ALLERGY SHELLFISH: FACE AND FINGERS SWELL - ALLERGY GABAPENTIN: NAUSEA - SIDE EFFECTS SURGICAL HISTORY DCS C SECTION X3 LEFT SHOULDER SURGERY X3 HYSTERECTOMY TENS UNIT LEFT SHOULDER - PER DR. MARES FAMILY HISTORY MOTHER: , OF CANCER IN HER 80S (UNKNOWN CANCER) NO H/O BREAST CANCER/COLON CANCERNO CAD, DM. SOCIAL HISTORY GENERAL: TOBACCO USE ARE YOU A:NONSMOKER NEVER SMOKER OTHERS AT HOME: SPOUSE. DIET: REGULAR. LANGUAGE LANGUAGES SPOKEN:HONDURAN DOMESTIC VIOLENCE STATUS: DO YOU FEEL SAFE IN YOUR ENVIRONMENT?YES NEW PATIENT PAIN DIARY FROM 0-10, WHAT LEVEL IS YOUR PAIN TODAY?7 RECREATIONAL DRUG USE DRUG USE?NO EXERCISE: WALKS. LEARNING BARRIERS / SPECIAL NEEDS BARRIERS TO LEARNING?NO HEARING IMPAIRED?NO VISION IMPAIRED?YES COGNITIVELY IMPAIRED?NO :CORRECTIVE LENSES READINESS TO LEARN?YES LEARNING PREFERENCES?NO LEARNING CAPABILITIES PRESENT?YES EMOTIONAL BARRIERS?NO SPECIAL DEVICES?NO CRM CAMPAIGN MANAGER NEEDED?NO PAIN CLINIC PFS, CLERGY, PUBLIC HEALTH REFERRALS PFS REFERRAL NEEDED?NO CLERGY REFERRAL NEEDED?NO PUBLIC HEALTH REFERRAL NEEDED?NO WAS THE PROVIDER NOTIFIED OF ANY PERTINENT INFO?YES HAS THE PATIENT BEEN EDUCATED REGARDING HIS/HER PLAN OF CARE?YES HAS THE PATIENT BEEN EDUCATED REGARDING PAIN, THE RISK FOR PAIN, THE IMPORTANCE OF EFFECTIVE PAIN MANAGEMENT, AND THE PAIN ASSESSMENT PROCESS?YES LATEX QUESTIONNAIRE LATEX ALLERGY : HAVE YOU EVER DEVELOPED ANY TYPE OF REACTION AFTER HANDLING LATEX PRODUCTS SUCH RUBBER GLOVES, CONDOMS, DIAPHRAGMS, BALLOONS, SOCKS, OR UNDERWEAR?NO LATEX ALLERGY : HAVE YOU EVER DEVELOPED ANY TYPE OF REACTION DURING OR AFTER DENTAL APPOINTMENT, VAGINAL/RECTAL EXAMINATION, SURGICAL PROCEDURE, OR ANY OTHER EXPOSURE?NO LATEX RISK : HAVE YOU EVER HAD ANY DIFFICULTY BREATHING OR HIVES AFTER EATING OR HANDLING ANY FRUITS, OR VEGETABLES; SUCH KIWI, BANANAS, STONE FRUITS, OR CHESTNUTSNO LATEX RISK : DO YOU HAVE A PREVIOUS PERSONAL HISTORY OF MORE THAN NINE SURGERIES, SPINA BIFIDA, OR REPEATED CATHERIZATIONS? NO LATEX RISK : ARE YOU FREQUENTLY EXPOSED TO LATEX PRODUCTS IN YOUR OCCUPATION?NO DATE ASKED : 01/29/2019 ADVANCE DIRECTIVE ADVANCE DIRECTIVE DISCUSSED WITH PATIENT:YES 04/28/2019 PATIENT HAS NO ADVANCED DIRECTIVES AND DECLINED HCP INFORMATION AT THIS TIME. JS SIKHISM [id number] YARSANI MARITAL STATUS: . ALCOHOL SCREENING DID YOU HAVE A DRINK CONTAINING ALCOHOL IN THE PAST YEAR?YES HOW OFTEN DID YOU HAVE SIX OR MORE DRINKS ON ONE OCCASION IN THE PAST YEAR?NEVER (0 POINTS) HOW MANY DRINKS DID YOU HAVE ON A TYPICAL DAY WHEN YOU WERE DRINKING IN THE PAST YEAR?1 OR 2 (0 POINTS) HOW OFTEN DID YOU HAVE A DRINK CONTAINING ALCOHOL IN THE PAST YEAR?MONTHLY OR LESS (1 POINT) POINTS1 INTERPRETATIONNEGATIVE OCCUPATION: SSI DISABILITY. SEXUAL HX HAD SEX IN THE LAST 12 MONTHS (VAGINAL, ORAL, OR ANAL)?NO LMP:HYSTER HAVE YOU EVER HAD AN STD?NO REVIEWED WITH PATIENT 01/14/18 0909 JSREVIEWED WITH PATIENT 04/09/18 1400 LASREVIEWED WITH PATIENT 04/28/2019 0909 JS. HOSPITALIZATION/MAJOR DIAGNOSTIC PROCEDURE SURGERY RELATED MENTAL HEALTH 09/2017 REVIEW OF SYSTEMS REVIEWED BY: PROVIDER: GABRIEL MANCUSO . CONSTITUTIONAL: ANY CHANGE IN YOUR MEDICAL CONDITION? NO . CHILLS NO . FEVER NO . INFECTION: DO YOU HAVE NEW INFECTIONS? NO . DO YOU HAVE HISTORY OF MRSA? NO . MUSCULOSKELETAL: ANY NEW PATTERNS OF PAIN OR NUMBNESS? YES, STATES PAIN COMES AND GOES - SOMETIMES THE MEDICATIONS HELP AND SOMETIMES THEY DON'T. ALSO STATES ELECTRICAL PAINS OCCASSIONALLY . GASTROENTEROLOGY: ANY NEW CHANGE IN BOWEL CONTROL? NO . GENITOURINARY: ANY NEW CHANGE IN BLADDER CONTROL? NO . IS THERE A CHANCE YOU COULD BE ? NO . HEMATOLOGY/LYMPH: DO YOU TAKE ANY BLOOD THINNERS? (FOR EXAMPLE- COUMADIN, PLAVIX, AGGRENOX, PLATEL, PRADAXA, OR XARELTO) NO . WHEN WAS YOUR LAST DOSE? DATE: TIME: . NEUROLOGY: HAVE YOU FALLEN IN THE PAST 12 MONTHS? NO - NOT IN THE PAST 12 MONTHS . ANY NEW EXTREMITY NUMBNESS OR WEAKNESS? YES, STATES NUMBNESS/WEAKNESS LEFT ARM . CARDIOLOGY: DO YOU HAVE A PACEMAKER OR DEFIBRILLATOR? NO . RESPIRATORY: HAVE YOU BEEN SICK IN THE PAST WEEK? NO . FEVER NO . FLU LIKE SYMPTOMS? NO . COUGH NO . INTEGUMENTARY: DO YOU HAVE ANY RASHES OR OPEN SORES? NO . ALLERGIC/IMMUNO: ARE YOU ALLERGIC TO IV DYE? NO . ANY NEW ALLERGIES? NO . PSYCHIATRIC: DO YOU HAVE THOUGHTS OF HURTING YOURSELF OR SOMEONE ELSE? NO . ARE YOU ABUSED, NEGLECTED, OR IN AN UNSAFE ENVIRONMENT? NO . ENDOCRINOLOGY: ARE YOU DIABETIC? NO . OTHER: DO YOU NEED ANY PRESCRIPTIONS? NO . IF YES, PLEASE LIST: ____ . ANY NEW PROBLEMS WITH YOUR MEDICATIONS? NO . WHEN DID YOU LAST EAT? ____ . WHEN DID YOU LAST DRINK? ____ . WHAT DID YOU LAST DRINK? ____ . NAME OF PERSON DRIVING YOU HOME? ____ . DO YOU HAVE ANY OTHER QUESTIONS OR CONCERNS YES, STATES SHE WANTS TO FIGURE OUT WHY SHE HAS STARTED GETTING "ELECTRICAL SHOCK" PAINS - STARTED IN ABOUT MARCH . VITAL SIGNS WT 145.8 LBS, HT 62 IN, BMI 26.66 INDEX, BP 125/74 MM HG, HR 59 /MIN, RR 18 /MIN, TEMP 97.0 F, OXYGEN SAT % 98%, SAFE IN ENV? (Y/N) YES, NA INITIALS [id number], REVIEWED BY: ELMER. EXAMINATION GENERAL EXAMINATION: LUNGS:LUNG SOUNDS ARE CLEAR. HEART:HEART RATE REGULAR. MUSCULOSKELETAL:EQUAL STRONG DIRECTOR OF SEARCH ENGINE MARKETING STRENGTH BILAT HANDS.ABDUCTION LEFT ARM LIMITED TO 40 DEGREES. LEFT SHOULDER WITH WELL HEALED SCAR OVER LEFT SHOULDER.TENDER TO TOUCH OVER LEFT SHOULDER. ASSESSMENTS PAIN IN LEFT SHOULDER - M25.512 (PRIMARY) TREATMENT PAIN IN LEFT SHOULDER CONTINUE TRAMADOL HCL TABLET, 50 MG, 1 TO 2 TABLET NEEDED, ORAL FOR PAIN, Q8H PRN MDD5 REFILL IBUPROFEN TABLET, 800 MG, 1 TABLET WITH FOOD OR MILK NEEDED, ORALLY FOR PAIN, Q8H PRN MDD3, 30 DAYS, 90, REFILLS 5 CONTINUE AMITRIPTYLINE HCL TABLET, 50 MG, 1 TABLET, ORALLY, AT BEDTIME NOTES: ISTOP REGISTRY REVIEWED AND DEMONSTRATES COMPLLIANCE. BRINGS IN MEDICATIONS WHICH IS APPROPRIATE FOR WHAT WAS DISPENSED. RECENT URINE TOXICOLOGY REVIEWED. NO UNAUTHORIZED MEDICATIONS. NO ILLICIT SUBSTANCES AND PRESCRIBED MEDICATIONS WERE PRESENT. URINE TOX TODAY, RISKS OF NARCOTIC/OPIOD MEDICATIONS BUT IS NOT LIMITED TO RISK OF DEPENDANCE/DEVELOPMENT OF ADDICTION, MOOD DISTURBANCE AND DEPRESSION, OSTEOPOROSIS, HORMONAL AND LABIDAL CHANGES, RESPIRATORY DEPRESSION AND . PATIENT IS ADVISED NOT TO DRIVE OR DRINK ALCOHOL WHILE ON THESE MEDICATIONS. PROCEDURES PN WORKMANS' COMP OPINION IN YOUR OPINION, WAS THE INCIDENT THAT THE PATIENT DESCRIBED THE COMPETENT MEDICAL CAUSE OF THIS INJURY/ILLNESS? YES ARE THE PATIENT'S COMPLAINTS CONSISTENT WITH HIS/HER HISTORY OF THE INJURY/ILLNESS? YES IS THE PATIENT'S HISTORY OF THE INJURY/ILLNESS CONSISTENT WITH YOUR OBJECTIVE FINDING? YES WHAT IS THE PERCENTAGE OF TEMPORARY IMPAIRMENT? MODERATE TO MARKED = 66.7% IS THE PATIENT WORKING? NO DOCTOR ON SITE: JEREMY TOWNSEND MD PROCEDURE CODES FA211 ESTABILISHED PATIENT [facility] FACILITY CHARGE DISPOSITION & COMMUNICATION FOLLOW UP 3 MONTHS (REASON: W/C MEDICATION MANAGEMENT) ELECTRONICALLY SIGNED BY JAMEE GE ON 04/28/2019 AT 10:32 AM EST DISCLAIMER : THIS IS A VISIT SUMMARY EXTRACTED FROM THE [employer] CHART. IT IS NOT A COPY OF THE [employer] PROGRESS NOTE. WALE
== END ==
LOC: M PAIN 08:45
PROVIDERS: ATTEND Nurse Practitioner Family
DX: M25.512 Pain in left shoulder (principal)

== ENCOUNTER → 2019-08-06 | Outpatient (CLI) | payer OTHER ==
--- NOTE | 2019-08-08 01:50 | ECWPNPC ---
PATIENT NAME: MIKY ELAINE : 1960 GENDER: FEMALE VISIT DATE: 08/06/2019 DISCHARGE DATE: 08/06/1944 VISIT LOCKED DATE TIME: PHYSICIAN: GABRIEL LAST RESOURCE: GABRIEL LAST REASON FOR APPOINTMENT 1. W/C 3 MONTH- CLEARED HISTORY OF PRESENT ILLNESS HISTORY OF PRESENT ILLNESS: PAIN THE PATIENT DESCRIBES THE PAIN... HERE FOR F/U AND MANAGEMENT OF PERSISTENT LEFT SHOULDER PAIN.WE ARE FOLLOWING HER FOR CHRONIC PAIN ASSOCIATED WITH WORK INJURY 1998 . SHE WAS REFERRED TO [facility] IN FOR A DORSAL COLUMN STIMULATOR IPG CHANGE. PATIENT IS ACCOMPANIED IN EXAM ROOM WITH HER WHO STATES THAT [facility] ELAINE PTA REFERRED PATIENT TO SURGEON IN [place]. STATES THEY ARE EVALUATING HER FOR CERVICAL ISSUES. STATES THAT THEY ARE NOT ADDRESSING DORSAL COLUMN STIMULATOR BATTERY CHANGE WE HAD REFERRED UNDER WORKMEN'S COMP. STATES THEY ARE RECEIVING BILLS FOR NECK PAIN EVALUATION FROM [place] SURGEON, WHICH ARE NOT BEING COVERED UNDER WORKMEN'S COMP. LEFT SHOULDER IS COVERED BODY PART UNDER WORKMANS COMPENSATION CLAIM. RATING PAIN VAS 10/ 10. NOT USING DORSAL COLUMN STIMULATOR BECAUSE SHE GETS A ZAPPING SENSATION IN HER LEFT CLAVICLE. SHE IS IN NEED OF A BATTERY CHANGE FOR HER DORSAL COLUMN STIMULATOR. CURRENTLY USING TRAMADOL 50MG TID 2 TAB FOR MDD6, AMITRIPTYLINE 25MG AT BEDTIME AND IBUPROFEN. REPORTS THAT THESE MEDICATIONS ARE EFFECTIVE AT REDUCING PAIN AND KEEPING HER FUNCTIONAL. DENIES ADVERSE SIDE EFFECTS. FALL RISK SCREENING: SCREENING :NO FALLS REPORTED IN THE LAST YEAR CURRENT MEDICATIONS TAKING VITAMIN D 1000 UNIT TABLET 1 TABLET ORALLY ONCE A DAY TAKING MULTIVITAMIN TABLET CHEWABLE 1 TAB ORALLY DAILY TAKING VITAMIN B-12 1000 MCG TABLET 1 TABLET ORALLY ONCE A DAY TAKING SERTRALINE HCL 25 MG TABLET 1 TABLET ORALLY ONCE A DAY TAKING DONEZEPIL HCL 10 MG TABLET ONE TAB ORALLY Q DAY TAKING IBUPROFEN 800 MG TABLET 1 TABLET WITH FOOD OR MILK NEEDED ORALLY FOR PAIN Q8H PRN MDD3 TAKING AMITRIPTYLINE HCL 50 MG TABLET 1 TABLET ORALLY AT BEDTIME TAKING TRAMADOL HCL 50 MG TABLET 1 TO 2 TABLET NEEDED ORAL FOR PAIN Q8H PRN MDD5 MEDICATION LIST REVIEWED AND RECONCILED WITH THE PATIENT PAST MEDICAL HISTORY DCS PLACED OVER 10 YEARS AGO - DR. ALLISON COMPLEX REGIONAL PAIN SYNDROME LUE - FOLLOWED BY PAIN CLINIC (DISABLED) - WORKERS COMP - HSS TENS DEVICE LEFT POSTERIOR THORAX VITAMIN D DEFICIENCY VITAMIN B12 DEFICIENCY - NEGATIVE ANTI-PARIETAL ANTIBODY B12 INJECTIONS GIVEN THEN STARTED ON PO 07/2017 DEMENTIA - FOLLOWING WITH NEUROLOGY DEPRESSION - FOLLOWED WITH PSYCHIATRY [address] FOWLER NO LONGER CARES FOR ADULTS - WE HAVE TAKEN OVER SERTRALINE SCRIPT 08/2018 HYPERCHOLESTEROLEMIA WITH LDL > 190 08/2018, ASCVD RISK = 2.4% 04/2019 ONSET - DEMENTIA ALLERGIES PENICILLIN (FOR ALLERGIES USE ONLY): DIFFICULTY BREATHING - ALLERGY SHELLFISH: FACE AND FINGERS SWELL - ALLERGY GABAPENTIN: NAUSEA - SIDE EFFECTS SURGICAL HISTORY DCS C SECTION X3 LEFT SHOULDER SURGERY X3 HYSTERECTOMY TENS UNIT LEFT SHOULDER - PER DR. MARES FAMILY HISTORY MOTHER: , OF CANCER IN HER 80S (UNKNOWN CANCER) NO H/O BREAST CANCER/COLON CANCERNO CAD, DM. SOCIAL HISTORY GENERAL: TOBACCO USE ARE YOU A:NONSMOKER NEVER SMOKER LATEX QUESTIONNAIRE LATEX ALLERGY : HAVE YOU EVER DEVELOPED ANY TYPE OF REACTION AFTER HANDLING LATEX PRODUCTS SUCH RUBBER GLOVES, CONDOMS, DIAPHRAGMS, BALLOONS, SOCKS, OR UNDERWEAR?NO LATEX ALLERGY : HAVE YOU EVER DEVELOPED ANY TYPE OF REACTION DURING OR AFTER DENTAL APPOINTMENT, VAGINAL/RECTAL EXAMINATION, SURGICAL PROCEDURE, OR ANY OTHER EXPOSURE?NO LATEX RISK : HAVE YOU EVER HAD ANY DIFFICULTY BREATHING OR HIVES AFTER EATING OR HANDLING ANY FRUITS, OR VEGETABLES; SUCH KIWI, BANANAS, STONE FRUITS, OR CHESTNUTSNO LATEX RISK : DO YOU HAVE A PREVIOUS PERSONAL HISTORY OF MORE THAN NINE SURGERIES, SPINA BIFIDA, OR REPEATED CATHERIZATIONS? NO LATEX RISK : ARE YOU FREQUENTLY EXPOSED TO LATEX PRODUCTS IN YOUR OCCUPATION?NO DATE ASKED : 08/06/2019 ALCOHOL SCREENING DID YOU HAVE A DRINK CONTAINING ALCOHOL IN THE PAST YEAR?YES HOW OFTEN DID YOU HAVE SIX OR MORE DRINKS ON ONE OCCASION IN THE PAST YEAR?NEVER (0 POINTS) HOW MANY DRINKS DID YOU HAVE ON A TYPICAL DAY WHEN YOU WERE DRINKING IN THE PAST YEAR?1 OR 2 (0 POINTS) HOW OFTEN DID YOU HAVE A DRINK CONTAINING ALCOHOL IN THE PAST YEAR?MONTHLY OR LESS (1 POINT) POINTS1 INTERPRETATIONNEGATIVE RECREATIONAL DRUG USE DRUG USE?NO SEXUAL HX HAD SEX IN THE LAST 12 MONTHS (VAGINAL, ORAL, OR ANAL)?NO LMP:HYSTER HAVE YOU EVER HAD AN STD?NO SABIANIST [id number] ANGLICAN LANGUAGE LANGUAGES SPOKEN:SUDANESE LEARNING BARRIERS / SPECIAL NEEDS BARRIERS TO LEARNING?NO HEARING IMPAIRED?NO VISION IMPAIRED?YES COGNITIVELY IMPAIRED?NO :CORRECTIVE LENSES READINESS TO LEARN?YES LEARNING PREFERENCES?NO LEARNING CAPABILITIES PRESENT?YES EMOTIONAL BARRIERS?NO SPECIAL DEVICES?NO CHILDCARE WORKER NEEDED?NO DOMESTIC VIOLENCE STATUS: DO YOU FEEL SAFE IN YOUR ENVIRONMENT?YES OCCUPATION: SSI DISABILITY. DIET: REGULAR. EXERCISE: WALKS. MARITAL STATUS: . OTHERS AT HOME: SPOUSE. NEW PATIENT PAIN DIARY TODAY'S VISITNOTES 08/06/2019 PATIENT DESCRIBES PAIN :IT COMES AND GOES, THROBBING, OTHER TIGHTNESS, SPASMS FROM 0-10, WHAT LEVEL IS YOUR PAIN TODAY?10 PAIN CLINIC PFS, CLERGY, PUBLIC HEALTH REFERRALS PFS REFERRAL NEEDED?NO CLERGY REFERRAL NEEDED?NO PUBLIC HEALTH REFERRAL NEEDED?NO WAS THE PROVIDER NOTIFIED OF ANY PERTINENT INFO?YES HAS THE PATIENT BEEN EDUCATED REGARDING HIS/HER PLAN OF CARE?YES HAS THE PATIENT BEEN EDUCATED REGARDING PAIN, THE RISK FOR PAIN, THE IMPORTANCE OF EFFECTIVE PAIN MANAGEMENT, AND THE PAIN ASSESSMENT PROCESS?YES ADVANCE DIRECTIVE ADVANCE DIRECTIVE DISCUSSED WITH PATIENT:YES 08/06/2019 NO ADVANCED DIRECTIVES, DECLINED INFORMATION ON HCP AT THIS TIME. JS HOSPITALIZATION/MAJOR DIAGNOSTIC PROCEDURE SURGERY RELATED MENTAL HEALTH 09/2017 REVIEW OF SYSTEMS REVIEWED BY: PROVIDER: GABRIEL MANCUSO . CONSTITUTIONAL: ANY CHANGE IN YOUR MEDICAL CONDITION? NO . CHILLS NO . FEVER NO . INFECTION: DO YOU HAVE NEW INFECTIONS? NO . DO YOU HAVE HISTORY OF MRSA? NO . MUSCULOSKELETAL: ANY NEW PATTERNS OF PAIN OR NUMBNESS? NO . GASTROENTEROLOGY: ANY NEW CHANGE IN BOWEL CONTROL? NO . GENITOURINARY: ANY NEW CHANGE IN BLADDER CONTROL? NO . IS THERE A CHANCE YOU COULD BE ? NO . HEMATOLOGY/LYMPH: DO YOU TAKE ANY BLOOD THINNERS? (FOR EXAMPLE- COUMADIN, PLAVIX, AGGRENOX, PLATEL, PRADAXA, OR XARELTO) NO . WHEN WAS YOUR LAST DOSE? DATE: TIME: . NEUROLOGY: HAVE YOU FALLEN IN THE PAST 12 MONTHS? NO . ANY NEW EXTREMITY NUMBNESS OR WEAKNESS? NO . CARDIOLOGY: DO YOU HAVE A PACEMAKER OR DEFIBRILLATOR? NO, DCS . RESPIRATORY: HAVE YOU BEEN SICK IN THE PAST WEEK? NO . FEVER NO . FLU LIKE SYMPTOMS? NO . COUGH NO . INTEGUMENTARY: DO YOU HAVE ANY RASHES OR OPEN SORES? NO . ALLERGIC/IMMUNO: ARE YOU ALLERGIC TO IV DYE? NO . ANY NEW ALLERGIES? NO . PSYCHIATRIC: DO YOU HAVE THOUGHTS OF HURTING YOURSELF OR SOMEONE ELSE? NO . ARE YOU ABUSED, NEGLECTED, OR IN AN UNSAFE ENVIRONMENT? NO . ENDOCRINOLOGY: ARE YOU DIABETIC? NO . OTHER: DO YOU NEED ANY PRESCRIPTIONS? YES . IF YES, PLEASE LIST: ____TRAMADOL . ANY NEW PROBLEMS WITH YOUR MEDICATIONS? NO . WHEN DID YOU LAST EAT? ____ . WHEN DID YOU LAST DRINK? ____ . WHAT DID YOU LAST DRINK? ____ . NAME OF PERSON DRIVING YOU HOME? ____ . DO YOU HAVE ANY OTHER QUESTIONS OR CONCERNS NO . VITAL SIGNS WT 150.2 LBS, HT 62 IN, BMI 27.47 INDEX, BP 139/76 MM HG, HR 60 /MIN, RR 18 /MIN, TEMP 97.1 F, OXYGEN SAT % 98%, SAFE IN ENV? (Y/N) YES, NA INITIALS AW 0854, REVIEWED BY: ROCKY TEMP 97.2. EXAMINATION GENERAL EXAMINATION: LUNGS:LUNG SOUNDS ARE CLEAR. HEART:HEART RATE REGULAR. MUSCULOSKELETAL:EQUAL STRONG BOX CAR CHECKER STRENGTH BILAT HANDS.ABDUCTION LEFT ARM LIMITED TO 40 DEGREES. LEFT SHOULDER WITH WELL HEALED SCAR OVER LEFT SHOULDER.TENDER TO TOUCH OVER LEFT SHOULDER. ASSESSMENTS PAIN IN LEFT SHOULDER - M25.512 (PRIMARY) TREATMENT PAIN IN LEFT SHOULDER CONTINUE IBUPROFEN TABLET, 800 MG, 1 TABLET WITH FOOD OR MILK NEEDED, ORALLY FOR PAIN, Q8H PRN MDD3 CONTINUE AMITRIPTYLINE HCL TABLET, 50 MG, 1 TABLET, ORALLY, AT BEDTIME CONTINUE TRAMADOL HCL TABLET, 50 MG, 1 TO 2 TABLET NEEDED, ORAL FOR PAIN, Q8H PRN MDD5 NOTES: [facility] WAS NOTIFIED OF SITUATION PER DR. MARES'S REQUEST. DR. MARES IS REQUESTING THAT [facility]DELITA CONTACT [facility] ELAINE'S OFFICE IN REGARD TO REFERRAL FOR IPG-DORSAL COLUMN STIMULATOR BATTERY CHANGE THAT WAS MADE IN 2018. INFORMED PATIENT THAT WE WOULD BE IN TOUCH WITH HER AND HER WHO IS HER HEALTHCARE PROXY IN THE NEXT WEEK. SHE WILL CONTACT US IF SHE HAS NOT HEARD FROM OUR OFFICE. PROCEDURES PN WORKMANS' COMP OPINION IN YOUR OPINION, WAS THE INCIDENT THAT THE PATIENT DESCRIBED THE COMPETENT MEDICAL CAUSE OF THIS INJURY/ILLNESS? YES ARE THE PATIENT'S COMPLAINTS CONSISTENT WITH HIS/HER HISTORY OF THE INJURY/ILLNESS? YES IS THE PATIENT'S HISTORY OF THE INJURY/ILLNESS CONSISTENT WITH YOUR OBJECTIVE FINDING? YES WHAT IS THE PERCENTAGE OF TEMPORARY IMPAIRMENT? MODERATE TO MARKED = 66.7% IS THE PATIENT WORKING? NO DOCTOR ON SITE: JEREMY TOWNSEND MD PROCEDURE CODES FA211 ESTABILISHED PATIENT [facility] CHARGE DISPOSITION & COMMUNICATION FOLLOW UP 2 MONTHS (REASON: W/C LEFT SHOULDER) ELECTRONICALLY SIGNED BY JAMEE GE ON 08/07/2019 AT 12:40 PM EDT DISCLAIMER : THIS IS A VISIT SUMMARY EXTRACTED FROM THE [employer] CHART. IT IS NOT A COPY OF THE [employer] PROGRESS NOTE. WALE
== END ==
LOC: M PAIN 09:00
PROVIDERS: ATTEND Nurse Practitioner Family
DX: M25.512 Pain in left shoulder (principal); Z79.891 Long term (current) use of opiate analgesic; Z79.899 Other long term (current) drug therapy; Z88.0 Allergy status to penicillin; Z88.8 Allergy status to other drugs, medicaments and biological substances; Z91.013 Allergy to seafood

== ENCOUNTER → 2019-10-13 | Outpatient (CLI) | payer OTHER ==
--- NOTE | 2019-10-17 06:17 | ECWPNPC ---
PATIENT NAME: MIKY ELAINE : 1960 GENDER: FEMALE VISIT DATE: 10/13/2019 DISCHARGE DATE: 10/13/19 0959 VISIT LOCKED DATE TIME: PHYSICIAN: GABRIEL LAST RESOURCE: GABRIEL LAST REASON FOR APPOINTMENT 1. W/C LEFT SHOULDER- NEEDS TO BE AT VISIT-PLEASE CLEAR HIM ALSO. HISTORY OF PRESENT ILLNESS PAIN CENTER INTAKE QUESTIONS: DO YOU HAVE A HISTORY OF MRSA? :NO DO YOU TAKE A BLOOD THINNERS? :NO DO YOU HAVE ANY BLEEDING DISORDERS? :NO ANY NEW NUMBNESS OR WEAKNESS IN YOUR LEGS OR ARMS? :NO ANY PACEMAKER,DEFIBRILLATOR, OR DORSAL COLUMN STIMULATOR? :NO DO YOU HAVE ANY RASHES OR OPEN SORES? :NO ARE YOU ALLERGIC TO IV DYE? :NO ARE YOU DIABETIC? :NO ANY NEW PROBLEMS WITH YOUR MEDICATIONS? :NO HAVE YOU RECEIVED A VACCINE IN THE PAST 30 DAYS? :NO DO YOU PLAN TO RECEIVE A VACCINE IN THE NEXT 21 DAYS? :NO DO YOU NEED ANY PRESCRIPTION? :NO DO YOU TAKE ANY IMMUNOSUPPRESSIVE MEDICATIONS? :NO IS THERE A CHANCE YOU COULD BE ? :NO ARE YOU BREAST FEEDING? :NO GENERAL: -. FALL RISK SCREENING: SCREENING :NO FALLS REPORTED IN THE LAST YEAR PAIN SCREENING: PATIENT HAS A COMPLAINT OF ACUTE OR CHRONIC PAIN :YES LOCATION OF PAIN:LEFT SHOULDER INTENSITY OF PAIN (SCALE OF 1 TO 10):5 WHAT DOES YOUR PAIN FEEL LIKE:CONTINOUS PAIN IS INCREASED BY:ACTIVITIES PAIN IS DECREASED BY: DOESNT DECREASE WHEN ITS WARMER IT IS MORE INTENSE NURSING NOTE: -. HISTORY OF PRESENT ILLNESS: PAIN THE PATIENT DESCRIBES THE PAIN... HERE FOR F/U AND MANAGEMENT OF PERSISTENT LEFT SHOULDER PAIN.WE ARE FOLLOWING HER FOR CHRONIC PAIN ASSOCIATED WITH WORK INJURY 1998 . RATING PAIN VAS 10/ 10. NOT USING DORSAL COLUMN STIMULATOR BECAUSE SHE GETS A ZAPPING SENSATION IN HER LEFT CLAVICLE. SHE IS IN NEED OF A BATTERY CHANGE FOR HER DORSAL COLUMN STIMULATOR. CURRENTLY USING TRAMADOL 50MG TID 2 TAB FOR MDD6, AMITRIPTYLINE 25MG AT BEDTIME AND IBUPROFEN. REPORTS THAT THESE MEDICATIONS ARE EFFECTIVE AT REDUCING PAIN AND KEEPING HER FUNCTIONAL. DENIES ADVERSE SIDE EFFECTS. DORSAL COLUMN STIM BATTERY CHANGE ISSUE STILL HAS NOT BEEN RESOLVED. THERE IS A CHANCE THAT SHE COULD HAVE SOME CERVICAL ISSUES PER RECENT VISIT WITH SURGEON IN [place] AND SHE WILL HAVE THIS EVALUATED UNDER PRIVATE INSURANCE THROUGH PRIMARY CARE. RECENTLY DIAGNOSED WITH POSSIBLE SEIZURE DISORDER BY NEUROLOGY AND WAS STARTED ON KEPPRA 500 MG TWICE A DAY. NEUROLOGY IS RECOMMENDING THAT SHE BE OFF OF TRAMADOL. DISCUSSED WEANING DOWN AND OFF TRAMADOL WITH BOTH SHE AND HER . CURRENT MEDICATIONS TAKING MULTIVITAMIN TABLET CHEWABLE 1 TAB ORALLY DAILY, NOTES: NOT CURRENTLY TAKING VITAMIN B-12 1000 MCG TABLET 1 TABLET ORALLY ONCE A DAY TAKING DONEZEPIL HCL 10 MG TABLET ONE TAB ORALLY Q DAY TAKING IBUPROFEN 800 MG TABLET 1 TABLET WITH FOOD OR MILK NEEDED ORALLY FOR PAIN Q8H PRN MDD3 TAKING AMITRIPTYLINE HCL 50 MG TABLET 1 TABLET ORALLY AT BEDTIME TAKING TRAMADOL HCL 50 MG TABLET 1 TO 2 TABLET NEEDED ORAL FOR PAIN Q8H PRN MDD5 TAKING SERTRALINE HCL 25 MG TABLET 1 TABLET ORALLY ONCE A DAY TAKING MEMANTINE HCL BID TAKING KEPPRA 500 MG TABLET ORALLY BID NOT-TAKING VITAMIN D 1000 UNIT TABLET 1 TABLET ORALLY ONCE A DAY MEDICATION LIST REVIEWED AND RECONCILED WITH THE PATIENT PAST MEDICAL HISTORY DCS PLACED OVER 10 YEARS AGO - DR. ALLISON COMPLEX REGIONAL PAIN SYNDROME LUE - FOLLOWED BY PAIN CLINIC (DISABLED) - WORKERS COMP - HSS TENS DEVICE LEFT POSTERIOR THORAX VITAMIN D DEFICIENCY VITAMIN B12 DEFICIENCY - NEGATIVE ANTI-PARIETAL ANTIBODY B12 INJECTIONS GIVEN THEN STARTED ON PO 07/2017 DEMENTIA - FOLLOWING WITH NEUROLOGY DEPRESSION - FOLLOWED WITH PSYCHIATRY [address] FOWLER NO LONGER CARES FOR ADULTS - WE HAVE TAKEN OVER SERTRALINE SCRIPT 08/2018 HYPERCHOLESTEROLEMIA WITH LDL > 190 08/2018, ASCVD RISK = 2.4% 04/2019 ONSET - DEMENTIA SEIZURE DISORDER BEING INVESTIGATED ALLERGIES AMITRIPTYLINE HCL: CONTRAINDICATION PENICILLIN (FOR ALLERGIES USE ONLY): DIFFICULTY BREATHING - ALLERGY SHELLFISH: FACE AND FINGERS SWELL - ALLERGY GABAPENTIN: NAUSEA - SIDE EFFECTS SURGICAL HISTORY DCS C SECTION X3 LEFT SHOULDER SURGERY X3 HYSTERECTOMY TENS UNIT LEFT SHOULDER - PER DR. MARES DOESNT HAVE ONE FAMILY HISTORY MOTHER: , OF CANCER IN HER 80S (UNKNOWN CANCER) NO H/O BREAST CANCER/COLON CANCERNO CAD, DM. SOCIAL HISTORY GENERAL: TOBACCO USE ARE YOU A:NONSMOKER NEVER SMOKER LATEX QUESTIONNAIRE LATEX ALLERGY : HAVE YOU EVER DEVELOPED ANY TYPE OF REACTION AFTER HANDLING LATEX PRODUCTS SUCH RUBBER GLOVES, CONDOMS, DIAPHRAGMS, BALLOONS, SOCKS, OR UNDERWEAR?NO LATEX ALLERGY : HAVE YOU EVER DEVELOPED ANY TYPE OF REACTION DURING OR AFTER DENTAL APPOINTMENT, VAGINAL/RECTAL EXAMINATION, SURGICAL PROCEDURE, OR ANY OTHER EXPOSURE?NO DATE ASKED : 08/06/2019 LATEX RISK : HAVE YOU EVER HAD ANY DIFFICULTY BREATHING OR HIVES AFTER EATING OR HANDLING ANY FRUITS, OR VEGETABLES; SUCH KIWI, BANANAS, STONE FRUITS, OR CHESTNUTSNO LATEX RISK : DO YOU HAVE A PREVIOUS PERSONAL HISTORY OF MORE THAN NINE SURGERIES, SPINA BIFIDA, OR REPEATED CATHERIZATIONS? NO LATEX RISK : ARE YOU FREQUENTLY EXPOSED TO LATEX PRODUCTS IN YOUR OCCUPATION?NO ALCOHOL SCREENING DID YOU HAVE A DRINK CONTAINING ALCOHOL IN THE PAST YEAR?YES HOW OFTEN DID YOU HAVE SIX OR MORE DRINKS ON ONE OCCASION IN THE PAST YEAR?NEVER (0 POINTS) HOW MANY DRINKS DID YOU HAVE ON A TYPICAL DAY WHEN YOU WERE DRINKING IN THE PAST YEAR?1 OR 2 (0 POINTS) HOW OFTEN DID YOU HAVE A DRINK CONTAINING ALCOHOL IN THE PAST YEAR?MONTHLY OR LESS (1 POINT) POINTS1 INTERPRETATIONNEGATIVE RECREATIONAL DRUG USE DRUG USE?NO SEXUAL HX HAD SEX IN THE LAST 12 MONTHS (VAGINAL, ORAL, OR ANAL)?NO LMP:HYSTER HAVE YOU EVER HAD AN STD?NO CATHOLIC [id number] EVANGELICAL LANGUAGE LANGUAGES SPOKEN:MONGOLIAN LEARNING BARRIERS / SPECIAL NEEDS BARRIERS TO LEARNING?NO HEARING IMPAIRED?NO VISION IMPAIRED?YES COGNITIVELY IMPAIRED?NO :CORRECTIVE LENSES READINESS TO LEARN?YES LEARNING PREFERENCES?NO LEARNING CAPABILITIES PRESENT?YES EMOTIONAL BARRIERS?NO SPECIAL DEVICES?NO GROUND HELPER STREET RAILWAY NEEDED?NO DOMESTIC VIOLENCE STATUS: DO YOU FEEL SAFE IN YOUR ENVIRONMENT?YES OCCUPATION: [employer] DISABILITY. DIET: REGULAR. EXERCISE: WALKS. MARITAL STATUS: . OTHERS AT HOME: SPOUSE. NEW PATIENT PAIN DIARY TODAY'S VISITNOTES 08/06/2019 PATIENT DESCRIBES PAIN :IT COMES AND GOES, THROBBING, OTHER TIGHTNESS, SPASMS FROM 0-10, WHAT LEVEL IS YOUR PAIN TODAY?10 PAIN CLINIC PFS, CLERGY, PUBLIC HEALTH REFERRALS PFS REFERRAL NEEDED?NO CLERGY REFERRAL NEEDED?NO PUBLIC HEALTH REFERRAL NEEDED?NO WAS THE PROVIDER NOTIFIED OF ANY PERTINENT INFO?YES HAS THE PATIENT BEEN EDUCATED REGARDING HIS/HER PLAN OF CARE?YES HAS THE PATIENT BEEN EDUCATED REGARDING PAIN, THE RISK FOR PAIN, THE IMPORTANCE OF EFFECTIVE PAIN MANAGEMENT, AND THE PAIN ASSESSMENT PROCESS?YES ADVANCE DIRECTIVE ADVANCE DIRECTIVE DISCUSSED WITH PATIENT:YES 08/06/2019 NO ADVANCED DIRECTIVES, DECLINED INFORMATION ON HCP AT THIS TIME. JS HOSPITALIZATION/MAJOR DIAGNOSTIC PROCEDURE SURGERY RELATED MENTAL HEALTH 09/2017 REVIEW OF SYSTEMS CONSTITUTIONAL: ANY RECENT FEVER NO . CHILLS NO . WEIGHT CHANGE OF UNKNOWN REASONS NO . GASTROENTEROLOGY: NEW UNEXPLAINABLE CHANGES IN BOWEL CONTROL NO . CONSTIPATION NO . GENITOURINARY: ANY NEW CHANGE IN BLADDER CONTROL? NO . NEUROLOGY: NEW ONSET DIZZINESS OR NEUROLOGICAL CHANGES NOT MENTIONED RECENTLY DIAGNOSED WITH PARTIAL SEIZURE DISORDER BY NEUROLOGY. THIS COULD BE THE REASON WHY SHE HAS PERIODS OF CONFUSION. THEY ARE RECOMMENDING SHE BE OFF OF TRAMADOL. THEY WILL REPEAT EEG ONCE OFF TRAMADOL. . NEW NUMBNESS OR PAIN PATTERNS NOT MENTIONED AND PERTINENT TO TODAY'S VISIT NO . CARDIOLOGY: NEW CHEST PRESSURE NO . NEW CHEST PAIN NO . RESPIRATORY: UNEXPLAINABLE COUGH NO . NEW SHORTNESS OF BREATH NO . VITAL SIGNS WT 142.6 LBS, HT 62 IN, BMI 26.08 INDEX, BP 121/70 MM HG, HR 57 /MIN, RR 18 /MIN, TEMP 96.9 F, OXYGEN SAT % 97%, NA INITIALS SC 08:53. EXAMINATION GENERAL EXAMINATION: LUNGS:LUNG SOUNDS ARE CLEAR. HEART:HEART RATE REGULAR. MUSCULOSKELETAL:EQUAL STRONG SHADE MATCHER STRENGTH BILAT HANDS.ABDUCTION LEFT ARM LIMITED TO 40 DEGREES. LEFT SHOULDER WITH WELL HEALED SCAR OVER LEFT SHOULDER.TENDER TO TOUCH OVER LEFT SHOULDER. ASSESSMENTS PAIN IN LEFT SHOULDER - M25.512 (PRIMARY) TREATMENT PAIN IN LEFT SHOULDER STOP TRAMADOL HCL TABLET, 50 MG, 1 TO 2 TABLET NEEDED, ORAL FOR PAIN, Q8H PRN MDD5 STOP AMITRIPTYLINE HCL TABLET, 50 MG, 1 TABLET, ORALLY, AT BEDTIME CONTINUE IBUPROFEN TABLET, 800 MG, 1 TABLET WITH FOOD OR MILK NEEDED, ORALLY FOR PAIN, Q8H PRN MDD3 NOTES: I WILL CONTACT ROBERT FROM [facility] TO SEE IF WE CAN MOVE FORWARD WITH BATTERY CHANGE OR REFERRAL TO ANOTHER PROVIDER TO EVALUATE FOR REMOVAL. SHE WILL SLOWLY TAPER OFF OF TRAMADOL OVER THE COURSE OF THE NEXT 2 WEEKS. THEY WILL CONTACT PRIMARY CARE PROVIDER TO HAVE NECK EVALUATED. FOLLOW-UP IN CLINIC IS SCHEDULED IN 6 WEEKS. DUE TO POTENTIAL SEVERE SIDE EFFECTS OF SERTRALINE AND AMITRIPTYLINE, I'M DISCONTINUING THAT WELL TODAY. SPOKE WITH ROBERT FROM [facility] AND HE WILL CONTACT PATIENT'S ON SUNDAY OR SUNDAY AT 10 AM, WHICH IS A CONVENIENT TIME FOR WHO IS PRIMARY SCREENING TECHNICIAN. PREVENTIVE MEDICINE PAIN CLINIC TEACHING: MEDICATIONS INSTRUCTED ON AMITRIPTYLINE TO BE STAPPED..PT INSTRUCTED ON HOW TO WEAN FROM MEDICATION BY SCOTT. THE PATIENT HAS BEEN EDUCATED REGARDING HIS/HER PLAN OF CARE : ROBERT THE REP FOR THE DCS S SUPPOSE TO CALL PT TO DISCUSS THE BATTERY SITUATION PROCEDURE CODES FA211 ESTABILISHED PATIENT [facility] FACILITY CHARGE DISPOSITION & COMMUNICATION FOLLOW UP 6 WEEKS (REASON: WORKMEN'S COMP/SHOULDER/LEFT) ELECTRONICALLY SIGNED BY JAMEE GE ON 10/16/2019 AT 10:54 AM EDT DISCLAIMER : THIS IS A VISIT SUMMARY EXTRACTED FROM THE [employer] CHART. IT IS NOT A COPY OF THE [employer] PROGRESS NOTE. WALE
== END ==
LOC: M PAIN 09:00
PROVIDERS: ATTEND Nurse Practitioner Family
DX: M25.512 Pain in left shoulder (principal)

== ENCOUNTER → 2019-11-24 | Outpatient (CLI) | payer OTHER, MEDICARE | LOC: M PAIN 09:30 | PROVIDERS: ATTEND Nurse Practitioner Family | DX: M25.512 Pain in left shoulder (principal); M79.18 Myalgia, other site ==

== ENCOUNTER → 2019-12-10 | Outpatient (CLI) | payer OTHER, MEDICARE | LOC: M LABSMTC 10:29 | PROVIDERS: ATTEND Anesthesiology | DX: Z20.828 Contact with and (suspected) exposure to other viral communicable diseases (principal) | CPT/HCPCS: 90834; C9803; U0003 ==

== ENCOUNTER → 2019-12-15 | Outpatient (CLI) | payer OTHER, MEDICARE ==
[~2019-12-15] MED LIST changes: +BUPIVACAINE HCL 0.25% 10ML VIAL As Ordered ONE; +BUPIVACAINE HCL 0.25% 30ML VIAL As Ordered ONE; +NORCO, ANEXSIA 5/325MG TABLET (HYDROcodone/ACETAMINOPHEN) As Ordered ONE; +diazePAM 2 MG TAB As Ordered ONE
== END ==
LOC: M PAIN 10:20
PROVIDERS: ATTEND Anesthesiology
DX: M79.18 Myalgia, other site (principal)

== ENCOUNTER → 2019-12-29 | Outpatient (CLI) | payer OTHER, MEDICARE ==
[~2019-12-29] MED LIST changes: -BUPIVACAINE HCL 0.25% 10ML VIAL As Ordered ONE; -BUPIVACAINE HCL 0.25% 30ML VIAL As Ordered ONE; -NORCO, ANEXSIA 5/325MG TABLET (HYDROcodone/ACETAMINOPHEN) As Ordered ONE; -diazePAM 2 MG TAB As Ordered ONE
== END ==
LOC: M PAIN 09:19
PROVIDERS: ATTEND Nurse Practitioner Family
DX: M25.512 Pain in left shoulder (principal)

== ENCOUNTER → 2020-02-04 | Outpatient (CLI) | payer OTHER ==
--- NOTE | 2020-02-05 23:57 | ECWPNPC ---
PATIENT NAME: MIKY ELAINE : 1960 GENDER: FEMALE VISIT DATE: 02/04/2020 DISCHARGE DATE: 02/04/20 1525 VISIT LOCKED DATE TIME: PHYSICIAN: GABRIEL LAST PHYSICIAN PAGER NO: ACTIVE RESOURCE: GABRIEL LAST REASON FOR APPOINTMENT 1. WC-SHOULDER HISTORY OF PRESENT ILLNESS DEPRESSION SCREENING: PHQ-2 (2015 EDITION) LITTLE INTEREST OR PLEASURE IN DOING THINGS?NOT AT ALL FEELING DOWN, DEPRESSED, OR HOPELESS?NOT AT ALL TOTAL SCORE0 GENERAL: HERE FOR ROUTINE FOLLOW-UP OF PERSISTENT LEFT SHOULDER PAIN. THIS IS A WORK RELATED INJURY. HAS HAD MULTIPLE LEFT SHOULDER SURGERIES AND HAS HAD PERSISTENT PAIN SINCE INJURY. HAD A DORSAL COLUMN STIMULATOR PLACED SEVERAL YEARS AGO AND THIS WAS WORKING WELL FOR HER UP UNTIL THE PAST 2 YEARS. AT THIS POINT WE ARE IN THE PROCESS OF TRYING TO GET A SURGEON TO REPLACE DORSAL COLUMN STIM BATTERY. [employer] ,ROBERT HAS BEEN WORKING ON GETTING THIS APPROVED WITH SURGEON. CURRENTLY USING IBUPROFEN FOR PAIN CONTROL. OVERALL FEELS SHE IS DOING OKAY TODAY. REPORTS EPISODES OF SEVERE PAIN AT TIMES. NEUROLOGY WANTED HER OFF OF TRAMADOL. THIS WAS STOPPED SEVERAL MONTHS AGO. -. FALL RISK SCREENING: SCREENING :NO FALLS REPORTED IN THE LAST YEAR NONE PAIN SCREENING: PATIENT HAS A COMPLAINT OF ACUTE OR CHRONIC PAIN :YES LOCATION OF PAIN:LEFT SHOULDER INTENSITY OF PAIN (SCALE OF 1 TO 10):0 WHAT DOES YOUR PAIN FEEL LIKE:THROBBING DURATION:CONTINOUS PAIN IS INCREASED BY:ACTIVITIES PAIN IS DECREASED BY:USE OF PAIN MEDICATIONS NURSING NOTE: -. PAIN CENTER INTAKE QUESTIONS: DO YOU HAVE A HISTORY OF MRSA? :NO DO YOU TAKE A BLOOD THINNERS? :NO DO YOU HAVE ANY BLEEDING DISORDERS? :NO ANY NEW NUMBNESS OR WEAKNESS IN YOUR LEGS OR ARMS? :NO ANY PACEMAKER,DEFIBRILLATOR, OR DORSAL COLUMN STIMULATOR? :YES DORSAL COLUM STIMULATOR DO YOU HAVE ANY RASHES OR OPEN SORES? :NO ARE YOU ALLERGIC TO IV DYE? :NO ARE YOU DIABETIC? :NO ANY NEW PROBLEMS WITH YOUR MEDICATIONS? :NO HAVE YOU RECEIVED A VACCINE IN THE PAST 30 DAYS? :NO DO YOU PLAN TO RECEIVE A VACCINE IN THE NEXT 21 DAYS? :NO DO YOU NEED ANY PRESCRIPTION? :NO DO YOU TAKE ANY IMMUNOSUPPRESSIVE MEDICATIONS? :NO IS THERE A CHANCE YOU COULD BE ? :NO ARE YOU BREAST FEEDING? :NO CURRENT MEDICATIONS TAKING MULTIVITAMIN TABLET CHEWABLE 1 TAB ORALLY DAILY, NOTES: NOT CURRENTLY TAKING VITAMIN B-12 1000 MCG TABLET 1 TABLET ORALLY ONCE A DAY TAKING DONEZEPIL HCL 10 MG TABLET ONE TAB ORALLY Q DAY TAKING SERTRALINE HCL 25 MG TABLET 1 TABLET ORALLY ONCE A DAY TAKING IBUPROFEN 800 MG TABLET 1 TABLET WITH FOOD OR MILK NEEDED ORALLY FOR PAIN Q8H PRN MDD3 TAKING DEPAKOTE 250 MG TABLET DELAYED RELEASE 1 TABLET ORALLY TWICE A DAY NOT-TAKING MEMANTINE HCL BID NOT-TAKING KEPPRA 500 MG TABLET ORALLY BID NOT-TAKING VITAMIN D 1000 UNIT TABLET 1 TABLET ORALLY ONCE A DAY MEDICATION LIST REVIEWED AND RECONCILED WITH THE PATIENT PAST MEDICAL HISTORY DCS PLACED OVER 10 YEARS AGO - DR. ALLISON COMPLEX REGIONAL PAIN SYNDROME LUE - FOLLOWED BY PAIN CLINIC (DISABLED) - WORKERS COMP - HSS TENS DEVICE LEFT POSTERIOR THORAX VITAMIN D DEFICIENCY VITAMIN B12 DEFICIENCY - NEGATIVE ANTI-PARIETAL ANTIBODY B12 INJECTIONS GIVEN THEN STARTED ON PO 07/2017 DEMENTIA - FOLLOWING WITH NEUROLOGY DEPRESSION - FOLLOWED WITH PSYCHIATRY [address] FOWLER NO LONGER CARES FOR ADULTS - WE HAVE TAKEN OVER SERTRALINE SCRIPT 08/2018 HYPERCHOLESTEROLEMIA WITH LDL > 190 08/2018, ASCVD RISK = 2.4% 04/2019 ONSET - DEMENTIA SEIZURE DISORDER BEING INVESTIGATED ALLERGIES AMITRIPTYLINE HCL: CONTRAINDICATION PENICILLIN (FOR ALLERGIES USE ONLY): DIFFICULTY BREATHING - ALLERGY SHELLFISH: FACE AND FINGERS SWELL - ALLERGY GABAPENTIN: NAUSEA - SIDE EFFECTS SURGICAL HISTORY DCS C SECTION X3 LEFT SHOULDER SURGERY X3 HYSTERECTOMY TENS UNIT LEFT SHOULDER - PER DR. MARES DOESNT HAVE ONE FAMILY HISTORY MOTHER: , OF CANCER IN HER 80S (UNKNOWN CANCER) NO H/O BREAST CANCER/COLON CANCERNO CAD, DM. SOCIAL HISTORY GENERAL: TOBACCO USE ARE YOU A:NONSMOKER NEVER SMOKER LATEX QUESTIONNAIRE LATEX ALLERGY : HAVE YOU EVER DEVELOPED ANY TYPE OF REACTION AFTER HANDLING LATEX PRODUCTS SUCH RUBBER GLOVES, CONDOMS, DIAPHRAGMS, BALLOONS, SOCKS, OR UNDERWEAR?NO LATEX ALLERGY : HAVE YOU EVER DEVELOPED ANY TYPE OF REACTION DURING OR AFTER DENTAL APPOINTMENT, VAGINAL/RECTAL EXAMINATION, SURGICAL PROCEDURE, OR ANY OTHER EXPOSURE?NO LATEX RISK : HAVE YOU EVER HAD ANY DIFFICULTY BREATHING OR HIVES AFTER EATING OR HANDLING ANY FRUITS, OR VEGETABLES; SUCH KIWI, BANANAS, STONE FRUITS, OR CHESTNUTSNO LATEX RISK : DO YOU HAVE A PREVIOUS PERSONAL HISTORY OF MORE THAN NINE SURGERIES, SPINA BIFIDA, OR REPEATED CATHERIZATIONS? NO LATEX RISK : ARE YOU FREQUENTLY EXPOSED TO LATEX PRODUCTS IN YOUR OCCUPATION?NO DATE ASKED : 02/04/2020 ALCOHOL SCREENING DID YOU HAVE A DRINK CONTAINING ALCOHOL IN THE PAST YEAR?YES HOW OFTEN DID YOU HAVE SIX OR MORE DRINKS ON ONE OCCASION IN THE PAST YEAR?NEVER (0 POINTS) HOW MANY DRINKS DID YOU HAVE ON A TYPICAL DAY WHEN YOU WERE DRINKING IN THE PAST YEAR?1 OR 2 (0 POINTS) HOW OFTEN DID YOU HAVE A DRINK CONTAINING ALCOHOL IN THE PAST YEAR?MONTHLY OR LESS (1 POINT) POINTS1 INTERPRETATIONNEGATIVE RECREATIONAL DRUG USE DRUG USE?NO SEXUAL HX HAD SEX IN THE LAST 12 MONTHS (VAGINAL, ORAL, OR ANAL)?NO LMP:HYSTER HAVE YOU EVER HAD AN STD?NO CHEONDOISM [id number] ALEVISM LANGUAGE LANGUAGES SPOKEN:CONGOLESE LEARNING BARRIERS / SPECIAL NEEDS BARRIERS TO LEARNING?NO HEARING IMPAIRED?NO VISION IMPAIRED?YES COGNITIVELY IMPAIRED?NO :CORRECTIVE LENSES READINESS TO LEARN?YES LEARNING PREFERENCES?NO LEARNING CAPABILITIES PRESENT?YES EMOTIONAL BARRIERS?NO SPECIAL DEVICES?NO EXPERIMENTAL WORKER NEEDED?NO DOMESTIC VIOLENCE STATUS: DO YOU FEEL SAFE IN YOUR ENVIRONMENT?YES OCCUPATION: [employer] DISABILITY. DIET: REGULAR. EXERCISE: WALKS. MARITAL STATUS: . OTHERS AT HOME: SPOUSE. TODAY'S VISIT NOTES 08/06/2019, PATIENT DESCRIBES PAIN : IT COMES AND GOES, THROBBING, OTHER TIGHTNESS, SPASMS, FROM 0-10, WHAT LEVEL IS YOUR PAIN TODAY? 10. PAIN CLINIC PFS, CLERGY, PUBLIC HEALTH REFERRALS PFS REFERRAL NEEDED?NO CLERGY REFERRAL NEEDED?NO PUBLIC HEALTH REFERRAL NEEDED?NO WAS THE PROVIDER NOTIFIED OF ANY PERTINENT INFO?YES HAS THE PATIENT BEEN EDUCATED REGARDING HIS/HER PLAN OF CARE?YES HAS THE PATIENT BEEN EDUCATED REGARDING PAIN, THE RISK FOR PAIN, THE IMPORTANCE OF EFFECTIVE PAIN MANAGEMENT, AND THE PAIN ASSESSMENT PROCESS?YES ADVANCE DIRECTIVE ADVANCE DIRECTIVE DISCUSSED WITH PATIENT:YES 08/06/2019 NO ADVANCED DIRECTIVES, DECLINED INFORMATION ON HCP AT THIS TIME. JS HOSPITALIZATION/MAJOR DIAGNOSTIC PROCEDURE SURGERY RELATED MENTAL HEALTH 09/2017 REVIEW OF SYSTEMS CONSTITUTIONAL: ANY RECENT FEVER NO . CHILLS NO . WEIGHT CHANGE OF UNKNOWN REASONS NO . GASTROENTEROLOGY: NEW UNEXPLAINABLE CHANGES IN BOWEL CONTROL NO . CONSTIPATION NO . GENITOURINARY: ANY NEW CHANGE IN BLADDER CONTROL? NO . NEUROLOGY: NEW ONSET DIZZINESS OR NEUROLOGICAL CHANGES NOT MENTIONED NO . NEW NUMBNESS OR PAIN PATTERNS NOT MENTIONED AND PERTINENT TO TODAY'S VISIT NO . CARDIOLOGY: NEW CHEST PRESSURE NO . NEW CHEST PAIN NO . RESPIRATORY: UNEXPLAINABLE COUGH NO . NEW SHORTNESS OF BREATH NO . VITAL SIGNS WT 152.8 LBS, HT 62 IN, BMI 27.94 INDEX, BP 113/68 MM HG, HR 61 /MIN, RR 18 /MIN, TEMP 98.1 F, OXYGEN SAT % 98%, SAFE IN ENV? (Y/N) YES, NA INITIALS SC 14:50, REVIEWED BY: ELMER. EXAMINATION GENERAL EXAMINATION: LUNGS:LUNG SOUNDS ARE CLEAR. HEART:HEART RATE REGULAR. MUSCULOSKELETAL:EQUAL STRONG WHEELAGE CLERK STRENGTH BILAT HANDS.ABDUCTION LEFT ARM LIMITED TO 40 DEGREES. LEFT SHOULDER WITH WELL HEALED SCAR OVER LEFT SHOULDER.TENDER TO TOUCH OVER LEFT SHOULDER. ASSESSMENTS PAIN IN LEFT SHOULDER - M25.512 (PRIMARY) TREATMENT PAIN IN LEFT SHOULDER CONTINUE IBUPROFEN TABLET, 800 MG, 1 TABLET WITH FOOD OR MILK NEEDED, ORALLY FOR PAIN, Q8H PRN MDD3 PROCEDURE CODES FA211 ESTABILISHED PATIENT MERGED WITH [facility] CHARGE DISPOSITION & COMMUNICATION FOLLOW UP 2 MONTHS (REASON: W/C LEFT SHOULDER) ELECTRONICALLY SIGNED BY JAMEE GE ON 02/05/2020 AT 03:38 PM EST DISCLAIMER : THIS IS A VISIT SUMMARY EXTRACTED FROM THE [employer] CHART. IT IS NOT A COPY OF THE [employer] PROGRESS NOTE. WALE
== END ==
LOC: M PAIN 14:15
PROVIDERS: ATTEND Nurse Practitioner Family
DX: M25.512 Pain in left shoulder (principal); E55.9 Vitamin D deficiency, unspecified; E53.8 Deficiency of other specified B group vitamins; F32.9 Major depressive disorder, single episode, unspecified; E78.00 Pure hypercholesterolemia, unspecified; G40.909 Epilepsy, unspecified, not intractable, without status epilepticus; F03.90 Unspecified dementia, unspecified severity, without behavioral disturbance, psychotic disturbance, mood disturbance, and anxiety; G90.512 Complex regional pain syndrome I of left upper limb; Z88.0 Allergy status to penicillin; Z88.8 Allergy status to other drugs, medicaments and biological substances; Z91.013 Allergy to seafood

== ENCOUNTER → 2020-04-05 | Outpatient (CLI) | payer OTHER ==
--- NOTE | 2020-04-07 04:38 | ECWPNPC ---
PATIENT NAME: MIKY ELAINE : 1960 GENDER: FEMALE VISIT DATE: 04/05/2020 DISCHARGE DATE: 04/05/20 1003 VISIT LOCKED DATE TIME: PHYSICIAN: GABRIEL LAST PHYSICIAN PAGER NO: ACTIVE RESOURCE: GABRIEL LAST REASON FOR APPOINTMENT 1. WC- SHOULDER HISTORY OF PRESENT ILLNESS GENERAL: . HERE FOR ROUTINE FOLLOW-UP OF PERSISTENT LEFT SHOULDER PAIN. THIS IS A WORK RELATED INJURY. HAS HAD MULTIPLE LEFT SHOULDER SURGERIES AND HAS HAD PERSISTENT PAIN SINCE INJURY. HAD A DORSAL COLUMN STIMULATOR PLACED SEVERAL YEARS AGO AND THIS WAS WORKING WELL FOR HER UP UNTIL THE PAST 2 YEARS. AT THIS POINT WE ARE IN THE PROCESS OF TRYING TO GET A SURGEON TO REPLACE DORSAL COLUMN STIM BATTERY. [employer] BEVEL GEAR GENERATOR OPERATOR ,ROBERT HAS BEEN WORKING ON GETTING THIS APPROVED WITH SURGEON. CURRENTLY USING IBUPROFEN FOR PAIN CONTROL. OVERALL FEELS SHE IS DOING OKAY TODAY. REPORTS EPISODES OF SEVERE PAIN AT TIMES. NEUROLOGY WANTED HER OFF OF TRAMADOL. THIS WAS STOPPED SEVERAL MONTHS AGO. -. FALL RISK SCREENING: SCREENING :NO FALLS REPORTED IN THE LAST YEAR PAIN SCREENING: PATIENT HAS A COMPLAINT OF ACUTE OR CHRONIC PAIN :YES LOCATION OF PAIN:LEFT SHOULDER INTENSITY OF PAIN (SCALE OF 1 TO 10):5 WHAT DOES YOUR PAIN FEEL LIKE:BURNING, SHARP, STABBING, CONTINOUS, ACHING, SHOOTING DURATION:CONSTANT, AWAKENS FROM SLEEP PAIN IS INCREASED BY:ACTIVITIES PAIN IS DECREASED BY:OTHERS PATIENT STATES SHE "TRIES TO WORK THROUGH THE PAIN." TREATMENT/MEDICATIONS USED TO MANAGE PAIN:OTC PAIN RELIEVERS, PHYSICAL THERAPY, TOPICAL CORTICOSTEROIDS PAIN HAS INTERFERED WITH THE FOLLOWING:MOOD PLAN/GOALS/TREATMENT/INTERVENTION/FOLLOW UP:SEE PLAN NURSING NOTE: -. PAIN CENTER INTAKE QUESTIONS: DO YOU HAVE A HISTORY OF MRSA? :NO DO YOU TAKE A BLOOD THINNERS? :NO DO YOU HAVE ANY BLEEDING DISORDERS? :NO ANY NEW NUMBNESS OR WEAKNESS IN YOUR LEGS OR ARMS? :NO ANY PACEMAKER,DEFIBRILLATOR, OR DORSAL COLUMN STIMULATOR? :YES DCS DO YOU HAVE ANY RASHES OR OPEN SORES? :NO ARE YOU ALLERGIC TO IV DYE? :NO ARE YOU DIABETIC? :NO ANY NEW PROBLEMS WITH YOUR MEDICATIONS? :NO HAVE YOU RECEIVED A VACCINE IN THE PAST 30 DAYS? :NO DO YOU PLAN TO RECEIVE A VACCINE IN THE NEXT 21 DAYS? :NO DO YOU NEED ANY PRESCRIPTION? :NO DO YOU TAKE ANY IMMUNOSUPPRESSIVE MEDICATIONS? :NO IS THERE A CHANCE YOU COULD BE ? :NO ARE YOU BREAST FEEDING? :NO CURRENT MEDICATIONS TAKING VITAMIN B-12 1000 MCG TABLET 1 TABLET ORALLY ONCE A DAY TAKING DONEZEPIL HCL 10 MG TABLET ONE TAB ORALLY Q DAY TAKING SERTRALINE HCL 50 MG TABLET 1 TABLET ORALLY ONCE A DAY TAKING DEPAKOTE 250 MG TABLET DELAYED RELEASE 1 TABLET ORALLY TWICE A DAY TAKING IBUPROFEN 800 MG TABLET 1 TABLET WITH FOOD OR MILK NEEDED ORALLY FOR PAIN Q8H PRN MDD3 NOT-TAKING MULTIVITAMIN TABLET CHEWABLE 1 TAB ORALLY DAILY, NOTES: NOT CURRENTLY UNKNOWN MEMANTINE HCL BID UNKNOWN KEPPRA 500 MG TABLET ORALLY BID UNKNOWN VITAMIN D 1000 UNIT TABLET 1 TABLET ORALLY ONCE A DAY MEDICATION LIST REVIEWED AND RECONCILED WITH THE PATIENT PAST MEDICAL HISTORY DCS PLACED OVER 10 YEARS AGO - DR. ALLISON COMPLEX REGIONAL PAIN SYNDROME LUE - FOLLOWED BY PAIN CLINIC (DISABLED) - WORKERS COMP - HSS TENS DEVICE LEFT POSTERIOR THORAX VITAMIN D DEFICIENCY VITAMIN B12 DEFICIENCY - NEGATIVE ANTI-PARIETAL ANTIBODY B12 INJECTIONS GIVEN THEN STARTED ON PO 07/2017 DEMENTIA - FOLLOWING WITH NEUROLOGY DEPRESSION - FOLLOWED WITH PSYCHIATRY [address] FOWLER NO LONGER CARES FOR ADULTS - WE HAVE TAKEN OVER SERTRALINE SCRIPT 08/2018 HYPERCHOLESTEROLEMIA WITH LDL > 190 08/2018, ASCVD RISK = 2.4% 04/2019 ONSET - DEMENTIA SEIZURE DISORDER BEING INVESTIGATED ALLERGIES AMITRIPTYLINE HCL: MEDICATION INTERACTION - CONTRAINDICATION PENICILLIN (FOR ALLERGIES USE ONLY): DIFFICULTY BREATHING - ALLERGY SHELLFISH: FACE AND FINGERS SWELL - ALLERGY GABAPENTIN: NAUSEA - SIDE EFFECTS SURGICAL HISTORY DCS C SECTION X3 LEFT SHOULDER SURGERY X3 HYSTERECTOMY TENS UNIT LEFT SHOULDER - PER DR. MARES DOESNT HAVE ONE FAMILY HISTORY MOTHER: , OF CANCER IN HER 80S (UNKNOWN CANCER) NO H/O BREAST CANCER/COLON CANCERNO CAD, DM. SOCIAL HISTORY GENERAL: TOBACCO USE ARE YOU A:NONSMOKER NEVER SMOKER LATEX QUESTIONNAIRE LATEX ALLERGY : HAVE YOU EVER DEVELOPED ANY TYPE OF REACTION AFTER HANDLING LATEX PRODUCTS SUCH RUBBER GLOVES, CONDOMS, DIAPHRAGMS, BALLOONS, SOCKS, OR UNDERWEAR?NO LATEX ALLERGY : HAVE YOU EVER DEVELOPED ANY TYPE OF REACTION DURING OR AFTER DENTAL APPOINTMENT, VAGINAL/RECTAL EXAMINATION, SURGICAL PROCEDURE, OR ANY OTHER EXPOSURE?NO LATEX RISK : HAVE YOU EVER HAD ANY DIFFICULTY BREATHING OR HIVES AFTER EATING OR HANDLING ANY FRUITS, OR VEGETABLES; SUCH KIWI, BANANAS, STONE FRUITS, OR CHESTNUTSNO LATEX RISK : DO YOU HAVE A PREVIOUS PERSONAL HISTORY OF MORE THAN NINE SURGERIES, SPINA BIFIDA, OR REPEATED CATHERIZATIONS? NO LATEX RISK : ARE YOU FREQUENTLY EXPOSED TO LATEX PRODUCTS IN YOUR OCCUPATION?NO DATE ASKED : 04/05/2020 LUNG CANCER SCREENING SMOKING STATUS:NON SMOKER ALCOHOL SCREENING DID YOU HAVE A DRINK CONTAINING ALCOHOL IN THE PAST YEAR?YES HOW OFTEN DID YOU HAVE SIX OR MORE DRINKS ON ONE OCCASION IN THE PAST YEAR?NEVER (0 POINTS) HOW MANY DRINKS DID YOU HAVE ON A TYPICAL DAY WHEN YOU WERE DRINKING IN THE PAST YEAR?1 OR 2 (0 POINTS) HOW OFTEN DID YOU HAVE A DRINK CONTAINING ALCOHOL IN THE PAST YEAR?MONTHLY OR LESS (1 POINT) POINTS1 INTERPRETATIONNEGATIVE RECREATIONAL DRUG USE DRUG USE?NO SEXUAL HX HAD SEX IN THE LAST 12 MONTHS (VAGINAL, ORAL, OR ANAL)?NO LMP:HYSTER HAVE YOU EVER HAD AN STD?NO [employer]IST [id number] DENOMINATIONAL LANGUAGE LANGUAGES SPOKEN:TURKISH EDUCATION LEVEL OF EDUCATION:HIGH SCHOOL LEARNING BARRIERS / SPECIAL NEEDS BARRIERS TO LEARNING?NO HEARING IMPAIRED?NO VISION IMPAIRED?YES :CORRECTIVE LENSES COGNITIVELY IMPAIRED?NO READINESS TO LEARN?YES LEARNING PREFERENCES?NO LEARNING CAPABILITIES PRESENT?YES EMOTIONAL BARRIERS?YES COMMENTS DEMENTIA SPECIAL DEVICES?NO KEEPER HEAD NEEDED?NO DOMESTIC VIOLENCE STATUS: DO YOU FEEL SAFE IN YOUR ENVIRONMENT?YES OCCUPATION: [employer] DISABILITY. DIET: REGULAR. EXERCISE: WALKS. MARITAL STATUS: . OTHERS AT HOME: SPOUSE. TODAY'S VISIT NOTES 08/06/2019, PATIENT DESCRIBES PAIN : IT COMES AND GOES, THROBBING, OTHER TIGHTNESS, SPASMS, FROM 0-10, WHAT LEVEL IS YOUR PAIN TODAY? 10. PAIN CLINIC PFS, CLERGY, PUBLIC HEALTH REFERRALS PFS REFERRAL NEEDED?YES CURIOUS ABOUT [facility] PROXY/LW., "WHAT HAPPENS IF SOMETHING HAPPENS TO HIM." REFERRAL COMPLETED? 04/05/20 PHONE NUMBER GIVEN TO PATIENT ADVOCATE . CLERGY REFERRAL NEEDED?NO PUBLIC HEALTH REFERRAL NEEDED?NO WAS THE PROVIDER NOTIFIED OF ANY PERTINENT INFO?YES HAS THE PATIENT BEEN EDUCATED REGARDING HIS/HER PLAN OF CARE?YES HAS THE PATIENT BEEN EDUCATED REGARDING PAIN, THE RISK FOR PAIN, THE IMPORTANCE OF EFFECTIVE PAIN MANAGEMENT, AND THE PAIN ASSESSMENT PROCESS?YES ADVANCE DIRECTIVE ADVANCE DIRECTIVE DISCUSSED WITH PATIENT:YES 04/05/20 NO ADVANCED DIRECTIVES, DECLINED INFORMATION ON HCP AT THIS TIME. HOSPITALIZATION/MAJOR DIAGNOSTIC PROCEDURE SURGERY RELATED MENTAL HEALTH 09/2017 REVIEW OF SYSTEMS CONSTITUTIONAL: ANY RECENT FEVER NO . CHILLS NO . WEIGHT CHANGE OF UNKNOWN REASONS NO . GASTROENTEROLOGY: NEW UNEXPLAINABLE CHANGES IN BOWEL CONTROL NO . CONSTIPATION NO . GENITOURINARY: ANY NEW CHANGE IN BLADDER CONTROL? NO . NEUROLOGY: NEW ONSET DIZZINESS OR NEUROLOGICAL CHANGES NOT MENTIONED NO . NEW NUMBNESS OR PAIN PATTERNS NOT MENTIONED AND PERTINENT TO TODAY'S VISIT NO . CARDIOLOGY: NEW CHEST PRESSURE NO . NEW CHEST PAIN NO . RESPIRATORY: UNEXPLAINABLE COUGH NO . NEW SHORTNESS OF BREATH NO . VITAL SIGNS WT 153.2 LBS, HT 62 IN, BMI 28.02 INDEX, BP 139/65 MM HG, HR 66 /MIN, RR 18 /MIN, TEMP 97.3 F, OXYGEN SAT % 99%, SAFE IN ENV? (Y/N) YES, NA INITIALS AW [id number] MIKEL PARKINSON. EXAMINATION GENERAL EXAMINATION: LUNGS:LUNG SOUNDS ARE CLEAR. HEART:HEART RATE REGULAR. MUSCULOSKELETAL:EQUAL STRONG COLD STORAGE SUPERVISOR STRENGTH BILAT HANDS.ABDUCTION LEFT ARM LIMITED TO 40 DEGREES. LEFT SHOULDER WITH WELL HEALED SCAR OVER LEFT SHOULDER.TENDER TO TOUCH OVER LEFT SHOULDER. ASSESSMENTS PAIN IN LEFT SHOULDER - M25.512 (PRIMARY) TREATMENT PAIN IN LEFT SHOULDER NOTES: CONTINUE IBUROFEN AND USE OF DORSAL COLUMN STIMULATOR.WE WILL PLACE CALL TO ROBERT JAY-BEVEL GEAR GENERATOR OPERATOR FOR [employer] TO CHECK ON STATUS OF BATTERY CHANGE.SHE IS USING DCS PERIODICALLY BUT CONTINUES TO HAVE DIFFICULTY CHARGING UNIT.FINDS STIMULATOR VERY HELPFUL WHEN IT IS WORKING. PROCEDURE CODES FA211 ESTABILISHED PATIENT [facility] FACILITY CHARGE DISPOSITION & COMMUNICATION FOLLOW UP 3 MONTHS (REASON: W/C-RIGHT SHOULDER/DCS) ELECTRONICALLY SIGNED BY JAMEE GE ON 04/06/2020 AT 03:57 PM EST DISCLAIMER : THIS IS A VISIT SUMMARY EXTRACTED FROM THE [employer] CHART. IT IS NOT A COPY OF THE [employer] PROGRESS NOTE. WALE
== END ==
LOC: M PAIN 09:15
PROVIDERS: ATTEND Nurse Practitioner Family
DX: M25.512 Pain in left shoulder (principal); F03.90 Unspecified dementia, unspecified severity, without behavioral disturbance, psychotic disturbance, mood disturbance, and anxiety; Z96.89 Presence of other specified functional implants; Z86.59 Personal history of other mental and behavioral disorders; Z88.0 Allergy status to penicillin; Z88.8 Allergy status to other drugs, medicaments and biological substances; Z91.013 Allergy to seafood; Z79.899 Other long term (current) drug therapy

== ENCOUNTER → 2020-04-14 | Outpatient (REF) | payer OTHER ==
[~2020-04-14] MED LIST changes: -AMIT25TA PO; +AMIT25TA17 PO
[2020-04-14 13:40] LABS: HEMOGLOBIN 13.8 g/dl (12.0-15.5); MEAN CORPUSCULAR HEMOGLOBIN 30.2 pg (27.0-33.0); MEAN CORPUSCULAR HGB CONC 32.9 g/dl (32.0-36.5); MEAN CORPUSCULAR VOLUME 91.9 fl (80.0-96.0); PLATELET COUNT, AUTOMATED 361 10^3/uL (150-450); RED BLOOD COUNT 4.57 10^6/uL (4.00-5.40); WHITE BLOOD COUNT 4.4 10^3/uL (4.0-10.0)
[2020-04-14 14:09] LABS: ALBUMIN 3.8 GM/DL (3.2-5.2); ALT/SGPT 15 U/L (12-78); BILIRUBIN,TOTAL 0.4 MG/DL (0.2-1.0); BLOOD UREA NITROGEN 10 MG/DL (7-18); CALCIUM LEVEL 9.4 MG/DL (8.5-10.1); CARBON DIOXIDE LEVEL 30 MEQ/L (21-32); CHLORIDE LEVEL 105 MEQ/L (98-107); CHOLESTEROL LEVEL 264 MG/DL (<200); CHOLESTEROL RISK RATIO 3.341 (<5); CREATININE FOR GFR 0.91 MG/DL (0.55-1.30); GLOMERULAR FILTRATION RATE > 60.0 (>51); GLUCOSE, FASTING 78 MG/DL (70-100); HDL CHOLESTEROL 79 MG/DL (>40); LDL CHOLESTEROL 168 MG/DL (<100); NON-HDL-C 185 MG/DL; POTASSIUM SERUM 5.2 MEQ/L (3.5-5.1); SODIUM LEVEL 139 MEQ/L (136-145); TOTAL PROTEIN 6.7 GM/DL (6.4-8.2); TRIGLYCERIDES LEVEL 85 MG/DL (<150)
[2020-04-14 14:10] LABS: FREE T4 1.08 NG/DL (0.76-1.46)
[2020-04-14 14:11] LABS: TOTAL 25(OH) VITAMIN D 24.1 NG/ML (30.0-100.0); VITAMIN B12 LEVEL 626 PG/ML
[2020-04-14 14:30] LABS: FOLATE 6.1 NG/ML
== END ==
LOC: M SFHCADAM 11:14
PROVIDERS: ATTEND Physician Assistant
DX: F03.90 Unspecified dementia, unspecified severity, without behavioral disturbance, psychotic disturbance, mood disturbance, and anxiety (principal); F33.2 Major depressive disorder, recurrent severe without psychotic features; E78.00 Pure hypercholesterolemia, unspecified; E55.9 Vitamin D deficiency, unspecified; E53.8 Deficiency of other specified B group vitamins

== ENCOUNTER → 2020-05-31 | Outpatient (CLI) | payer OTHER ==
--- NOTE | 2020-06-01 06:44 | ECWPNPC ---
PATIENT NAME: MIKY ELAINE : 1960 GENDER: FEMALE VISIT DATE: 05/31/2020 DISCHARGE DATE: 05/31/20 1049 VISIT LOCKED DATE TIME: PHYSICIAN: GABRIEL LAST PHYSICIAN PAGER NO: ACTIVE RESOURCE: GABRIEL LAST REASON FOR APPOINTMENT 1. LEFT SHOULDER HISTORY OF PRESENT ILLNESS GENERAL: . HERE FOR ROUTINE FOLLOW-UP OF PERSISTENT LEFT SHOULDER PAIN. THIS IS A WORK RELATED INJURY. HAS HAD MULTIPLE LEFT SHOULDER SURGERIES AND HAS HAD PERSISTENT PAIN SINCE INJURY. HAD A DORSAL COLUMN STIMULATOR PLACED SEVERAL YEARS AGO AND THIS WAS WORKING WELL FOR HER UP UNTIL THE PAST 2 YEARS. SHE HAS AN APPOINTMENT WITH DR. CASANOVA TO DISCUSS BATTERY CHANGE IN DORSAL COLUMN STIMULATOR IN 2 WEEKS. CURRENTLY USING IBUPROFEN FOR PAIN CONTROL. OVERALL FEELS SHE IS DOING OKAY TODAY. REPORTS EPISODES OF SEVERE PAIN AT TIMES. NEUROLOGY WANTED HER OFF OF TRAMADOL. THIS WAS STOPPED SEVERAL MONTHS AGO. - -. FALL RISK SCREENING: SCREENING :NO FALLS REPORTED IN THE LAST YEAR PAIN SCREENING: PATIENT HAS A COMPLAINT OF ACUTE OR CHRONIC PAIN :YES LOCATION OF PAIN:LEFT SHOULDER INTENSITY OF PAIN (SCALE OF 1 TO 10):5 WHAT DOES YOUR PAIN FEEL LIKE:ACHING, CONTINOUS, SHARP, TENDER, SHOOTING DURATION:CONTINOUS, CONSTANT, ALL DAY PAIN IS INCREASED BY:ACTIVITIES PAIN IS DECREASED BY:USE OF PAIN MEDICATIONS NURSING NOTE: -. PAIN CENTER INTAKE QUESTIONS: DO YOU HAVE A HISTORY OF MRSA? :NO DO YOU TAKE A BLOOD THINNERS? :NO DO YOU HAVE ANY BLEEDING DISORDERS? :NO ANY NEW NUMBNESS OR WEAKNESS IN YOUR LEGS OR ARMS? :NO ANY PACEMAKER,DEFIBRILLATOR, OR DORSAL COLUMN STIMULATOR? :YES DCS DO YOU HAVE ANY RASHES OR OPEN SORES? :NO ARE YOU ALLERGIC TO IV DYE? :NO ARE YOU DIABETIC? :NO ANY NEW PROBLEMS WITH YOUR MEDICATIONS? :NO HAVE YOU RECEIVED A VACCINE IN THE PAST 30 DAYS? :NO DO YOU PLAN TO RECEIVE A VACCINE IN THE NEXT 21 DAYS? :NO DO YOU NEED ANY PRESCRIPTION? :NO DO YOU TAKE ANY IMMUNOSUPPRESSIVE MEDICATIONS? :NO IS THERE A CHANCE YOU COULD BE ? :NO ARE YOU BREAST FEEDING? :NO CURRENT MEDICATIONS TAKING VITAMIN D 1000 UNIT TABLET 2 TABLETS ORALLY ONCE A DAY TAKING DONEZEPIL HCL 10 MG TABLET ONE TAB ORALLY Q DAY TAKING SERTRALINE HCL 50 MG TABLET 1 TABLET ORALLY ONCE A DAY TAKING DEPAKOTE 500 MG TABLET DELAYED RELEASE 1 TABLET ORALLY TWICE A DAY TAKING IBUPROFEN 800 MG TABLET 1 TABLET WITH FOOD OR MILK NEEDED ORALLY FOR PAIN Q8H PRN MDD3 NOT-TAKING MULTIVITAMIN TABLET CHEWABLE 1 TAB ORALLY DAILY, NOTES: NOT CURRENTLY NOT-TAKING VITAMIN B-12 1000 MCG TABLET 1 TABLET ORALLY ONCE A DAY NOT-TAKING MEMANTINE HCL BID NOT-TAKING KEPPRA 500 MG TABLET ORALLY BID MEDICATION LIST REVIEWED AND RECONCILED WITH THE PATIENT PAST MEDICAL HISTORY DCS PLACED OVER 10 YEARS AGO - DR. ALLISON COMPLEX REGIONAL PAIN SYNDROME LUE - FOLLOWED BY PAIN CLINIC (DISABLED) - WORKERS COMP - HSS TENS DEVICE LEFT POSTERIOR THORAX VITAMIN D DEFICIENCY VITAMIN B12 DEFICIENCY - NEGATIVE ANTI-PARIETAL ANTIBODY B12 INJECTIONS GIVEN THEN STARTED ON PO 07/2017 DEMENTIA - FOLLOWING WITH NEUROLOGY DEPRESSION - FOLLOWED WITH PSYCHIATRY [address] FOWLER NO LONGER CARES FOR ADULTS - WE HAVE TAKEN OVER SERTRALINE SCRIPT 08/2018 HYPERCHOLESTEROLEMIA WITH LDL > 190 08/2018, ASCVD RISK = 2.4% 04/2019, 2.5% 04/2020 SEIZURE DISORDER BEING INVESTIGATED CHRONIC LEFT SHOULDER PAIN - HAD SURGERY BY DR. GREEN IN 1999 ALLERGIES AMITRIPTYLINE HCL: MEDICATION INTERACTION - CONTRAINDICATION PENICILLIN (FOR ALLERGIES USE ONLY): DIFFICULTY BREATHING - ALLERGY SHELLFISH: FACE AND FINGERS SWELL - ALLERGY GABAPENTIN: NAUSEA - SIDE EFFECTS SOCIAL HISTORY GENERAL: TOBACCO USE ARE YOU A:NONSMOKER NEVER SMOKER LATEX QUESTIONNAIRE LATEX ALLERGY : HAVE YOU EVER DEVELOPED ANY TYPE OF REACTION AFTER HANDLING LATEX PRODUCTS SUCH RUBBER GLOVES, CONDOMS, DIAPHRAGMS, BALLOONS, SOCKS, OR UNDERWEAR?NO LATEX ALLERGY : HAVE YOU EVER DEVELOPED ANY TYPE OF REACTION DURING OR AFTER DENTAL APPOINTMENT, VAGINAL/RECTAL EXAMINATION, SURGICAL PROCEDURE, OR ANY OTHER EXPOSURE?NO LATEX RISK : HAVE YOU EVER HAD ANY DIFFICULTY BREATHING OR HIVES AFTER EATING OR HANDLING ANY FRUITS, OR VEGETABLES; SUCH KIWI, BANANAS, STONE FRUITS, OR CHESTNUTSNO LATEX RISK : DO YOU HAVE A PREVIOUS PERSONAL HISTORY OF MORE THAN NINE SURGERIES, SPINA BIFIDA, OR REPEATED CATHERIZATIONS? NO LATEX RISK : ARE YOU FREQUENTLY EXPOSED TO LATEX PRODUCTS IN YOUR OCCUPATION?NO DATE ASKED : 05/31/2020 ALCOHOL USE: NO. LUNG CANCER SCREENING SMOKING STATUS:NON SMOKER ALCOHOL SCREENING DID YOU HAVE A DRINK CONTAINING ALCOHOL IN THE PAST YEAR?YES HOW OFTEN DID YOU HAVE SIX OR MORE DRINKS ON ONE OCCASION IN THE PAST YEAR?NEVER (0 POINTS) HOW MANY DRINKS DID YOU HAVE ON A TYPICAL DAY WHEN YOU WERE DRINKING IN THE PAST YEAR?1 OR 2 (0 POINTS) HOW OFTEN DID YOU HAVE A DRINK CONTAINING ALCOHOL IN THE PAST YEAR?MONTHLY OR LESS (1 POINT) POINTS1 INTERPRETATIONNEGATIVE RECREATIONAL DRUG USE DRUG USE?NO SEXUAL HX HAD SEX IN THE LAST 12 MONTHS (VAGINAL, ORAL, OR ANAL)?NO LMP:HYSTER HAVE YOU EVER HAD AN STD?NO [id number] LANGUAGE LANGUAGES SPOKEN:HUNGARIAN EDUCATION LEVEL OF EDUCATION:HIGH SCHOOL LEARNING BARRIERS / SPECIAL NEEDS CHANGE FROM LAST VISIT?NO BARRIERS TO LEARNING?NO HEARING IMPAIRED?NO VISION IMPAIRED?YES :CORRECTIVE LENSES COGNITIVELY IMPAIRED?NO READINESS TO LEARN?YES LEARNING PREFERENCES?NO LEARNING CAPABILITIES PRESENT?YES EMOTIONAL BARRIERS?YES COMMENTS DEMENTIA SPECIAL DEVICES?NO CLERK NEEDED?NO DOMESTIC VIOLENCE STATUS: DO YOU FEEL SAFE IN YOUR ENVIRONMENT?YES OCCUPATION: [employer] DISABILITY. DIET: REGULAR. EXERCISE: WALKS. MARITAL STATUS: . OTHERS AT HOME: SPOUSE. TODAY'S VISIT NOTES 08/06/2019, PATIENT DESCRIBES PAIN : IT COMES AND GOES, THROBBING, OTHER TIGHTNESS, SPASMS, FROM 0-10, WHAT LEVEL IS YOUR PAIN TODAY? 10. - PFS REFERRAL NEEDED?YES CURIOUS ABOUT [facility] PROXY/LW., "WHAT HAPPENS IF SOMETHING HAPPENS TO HIM." CLERGY REFERRAL NEEDED?NO PUBLIC HEALTH REFERRAL NEEDED?NO WAS THE PROVIDER NOTIFIED OF ANY PERTINENT INFO?YES REFERRAL COMPLETED? 04/05/20 PHONE NUMBER GIVEN TO PATIENT ADVOCATE . HAS THE PATIENT BEEN EDUCATED REGARDING HIS/HER PLAN OF CARE?YES HAS THE PATIENT BEEN EDUCATED REGARDING PAIN, THE RISK FOR PAIN, THE IMPORTANCE OF EFFECTIVE PAIN MANAGEMENT, AND THE PAIN ASSESSMENT PROCESS?YES ADVANCE DIRECTIVE ADVANCE DIRECTIVE DISCUSSED WITH PATIENT:YES 04/05/20 NO ADVANCED DIRECTIVES, DECLINED INFORMATION ON HCP AT THIS TIME. REVIEW OF SYSTEMS CONSTITUTIONAL: ANY RECENT FEVER NO . CHILLS NO . WEIGHT CHANGE OF UNKNOWN REASONS NO . GASTROENTEROLOGY: NEW UNEXPLAINABLE CHANGES IN BOWEL CONTROL NO . CONSTIPATION NO . GENITOURINARY: ANY NEW CHANGE IN BLADDER CONTROL? NO . NEUROLOGY: NEW ONSET DIZZINESS OR NEUROLOGICAL CHANGES NOT MENTIONED NO . NEW NUMBNESS OR PAIN PATTERNS NOT MENTIONED AND PERTINENT TO TODAY'S VISIT NO . CARDIOLOGY: NEW CHEST PRESSURE NO . PATIENT DENIES NO . RESPIRATORY: UNEXPLAINABLE COUGH NO . NEW SHORTNESS OF BREATH NO . VITAL SIGNS WT 152 LBS, HT 62 IN, BMI 27.80 INDEX, BP 126/77 MM HG, HR 68 /MIN, RR 18 /MIN, TEMP 93.4 F, OXYGEN SAT % 97%, SAFE IN ENV? (Y/N) YEST.CARMELO MORIN. EXAMINATION GENERAL EXAMINATION: LUNGS:LUNG SOUNDS ARE CLEAR. HEART:HEART RATE REGULAR. MUSCULOSKELETAL:EQUAL STRONG CLINICAL ANALYST STRENGTH BILAT HANDS.ABDUCTION LEFT ARM LIMITED TO 40 DEGREES. LEFT SHOULDER WITH WELL HEALED SCAR OVER LEFT SHOULDER.TENDER TO TOUCH OVER LEFT SHOULDER. ASSESSMENTS PAIN IN LEFT SHOULDER - M25.512 (PRIMARY) PROCEDURES PN WORKMANS' COMP OPINION IN YOUR OPINION, WAS THE INCIDENT THAT THE PATIENT DESCRIBED THE COMPETENT MEDICAL CAUSE OF THIS INJURY/ILLNESS? YES ARE THE PATIENT'S COMPLAINTS CONSISTENT WITH HIS/HER HISTORY OF THE INJURY/ILLNESS? YES IS THE PATIENT'S HISTORY OF THE INJURY/ILLNESS CONSISTENT WITH YOUR OBJECTIVE FINDING? YES WHAT IS THE PERCENTAGE OF TEMPORARY IMPAIRMENT? MODERATE TO MARKED = 66.7% IS THE PATIENT WORKING? NO DOCTOR ON SITE: JEREMY TOWNSEND MD PROCEDURE CODES FA211 ESTABILISHED PATIENT [facility] FACILITY CHARGE DISPOSITION & COMMUNICATION FOLLOW UP 3 MONTHS (REASON: W/C-RIGHT SHOULDER/DCS) ELECTRONICALLY SIGNED BY JAMEE GE ON 05/31/2020 AT 11:05 AM EST DISCLAIMER : THIS IS A VISIT SUMMARY EXTRACTED FROM THE [employer] CHART. IT IS NOT A COPY OF THE [employer] PROGRESS NOTE. WALE
== END ==
LOC: M PAIN 10:00
PROVIDERS: ATTEND Nurse Practitioner Family
DX: M25.512 Pain in left shoulder (principal)

== ENCOUNTER → 2020-08-24 | Outpatient (CLI) | payer MEDICARE ==
--- NOTE | 2020-08-24 16:24 | REP ---
INDICATION: PAIN COMPARISON: None. TECHNIQUE: AP, lateral, bilateral oblique views left 1st toe. FINDINGS: Subchondral sclerosis and joint space narrowing at the metatarsophalangeal and interphalangeal joint noted. Mild hallux valgus deformity at the MTP joint. No acute fracture or dislocation. IMPRESSION: Degenerative changes as noted above. <Electronically signed by Og Mcdonnell > 08/24/20 [id number]
== END ==
LOC: M WUC 16:04
PROVIDERS: ATTEND Nurse Practitioner Family
DX: M19.072 Primary osteoarthritis, left ankle and foot (principal); M20.12 Hallux valgus (acquired), left foot; M79.675 Pain in left toe(s)

== ENCOUNTER → 2020-09-01 | Outpatient (CLI) | payer OTHER ==
--- NOTE | 2020-09-02 03:54 | ECWPNPC ---
PATIENT NAME: MIKY ELAINE : 1960 GENDER: FEMALE VISIT DATE: 09/01/2020 DISCHARGE DATE: 09/01/20950 VISIT LOCKED DATE TIME: PHYSICIAN: GABRIEL LAST PHYSICIAN PAGER NO: ACTIVE RESOURCE: GABRIEL LAST REASON FOR APPOINTMENT 1. W/C-LEFT SHOULDER/DCS HISTORY OF PRESENT ILLNESS DEPRESSION SCREENING: PHQ-2 (2015 EDITION) LITTLE INTEREST OR PLEASURE IN DOING THINGS?NOT AT ALL FEELING DOWN, DEPRESSED, OR HOPELESS?NOT AT ALL TOTAL SCORE0 GENERAL: . HERE FOR ROUTINE FOLLOW-UP OF PERSISTENT LEFT SHOULDER PAIN. THIS IS A WORK RELATED INJURY. HAS HAD MULTIPLE LEFT SHOULDER SURGERIES AND HAS HAD PERSISTENT PAIN SINCE INJURY. HAD A DORSAL COLUMN STIMULATOR PLACED SEVERAL YEARS AGO AND THIS WAS WORKING WELL FOR HER UP UNTIL THE PAST 2 YEARS. SHE HAS AN APPOINTMENT WITH DR. CASANOVA TO DISCUSS BATTERY CHANGE IN DORSAL COLUMN STIMULATOR IN 2 WEEKS. CURRENTLY USING IBUPROFEN FOR PAIN CONTROL. OVERALL FEELS SHE IS DOING OKAY TODAY. REPORTS EPISODES OF SEVERE PAIN AT TIMES. NEUROLOGY WANTED HER OFF OF TRAMADOL. THIS WAS STOPPED SEVERAL MONTHS AGO. - - -. FALL RISK SCREENING: SCREENING : NO FALLS REPORTED IN THE LAST YEAR. PAIN SCREENING: PATIENT HAS A COMPLAINT OF ACUTE OR CHRONIC PAIN :YES LOCATION OF PAIN:LEFT SHOULDER INTENSITY OF PAIN (SCALE OF 1 TO 10):10 WHAT DOES YOUR PAIN FEEL LIKE:ACHING, INTERMITTENT DURATION:INTERMITTENT PAIN IS INCREASED BY:ACTIVITIES PAIN IS DECREASED BY:OTHERS HEAT NURSING NOTE: -. PAIN CENTER INTAKE QUESTIONS: DO YOU HAVE A HISTORY OF MRSA? :NO DO YOU TAKE A BLOOD THINNERS? :NO DO YOU HAVE ANY BLEEDING DISORDERS? :NO ANY NEW NUMBNESS OR WEAKNESS IN YOUR LEGS OR ARMS? :NO ANY PACEMAKER,DEFIBRILLATOR, OR DORSAL COLUMN STIMULATOR? :YES DCS DO YOU HAVE ANY RASHES OR OPEN SORES? :NO ARE YOU ALLERGIC TO IV DYE? :NO ARE YOU DIABETIC? :NO ANY NEW PROBLEMS WITH YOUR MEDICATIONS? :NO HAVE YOU RECEIVED A VACCINE IN THE PAST 30 DAYS? :NO DO YOU PLAN TO RECEIVE A VACCINE IN THE NEXT 21 DAYS? :NO DO YOU NEED ANY PRESCRIPTION? :NO DO YOU TAKE ANY IMMUNOSUPPRESSIVE MEDICATIONS? :NO IS THERE A CHANCE YOU COULD BE ? :NO ARE YOU BREAST FEEDING? :NO CURRENT MEDICATIONS TAKING VITAMIN D 1000 UNIT TABLET 2 TABLETS ORALLY ONCE A DAY TAKING DONEZEPIL HCL 10 MG TABLET ONE TAB ORALLY Q DAY TAKING SERTRALINE HCL 50 MG TABLET 1 TABLET ORALLY ONCE A DAY TAKING DEPAKOTE 500 MG TABLET DELAYED RELEASE 1 TABLET ORALLY TWICE A DAY TAKING IBUPROFEN 800 MG TABLET 1 TABLET WITH FOOD OR MILK NEEDED ORALLY FOR PAIN Q8H PRN MDD3 NOT-TAKING MULTIVITAMIN TABLET CHEWABLE 1 TAB ORALLY DAILY, NOTES: NOT CURRENTLY NOT-TAKING VITAMIN B-12 1000 MCG TABLET 1 TABLET ORALLY ONCE A DAY NOT-TAKING MEMANTINE HCL BID NOT-TAKING KEPPRA 500 MG TABLET ORALLY BID MEDICATION LIST REVIEWED AND RECONCILED WITH THE PATIENT PAST MEDICAL HISTORY DCS PLACED OVER 10 YEARS AGO - DR. ALLISON COMPLEX REGIONAL PAIN SYNDROME LUE - FOLLOWED BY PAIN CLINIC (DISABLED) - WORKERS COMP - HSS TENS DEVICE LEFT POSTERIOR THORAX VITAMIN D DEFICIENCY VITAMIN B12 DEFICIENCY - NEGATIVE ANTI-PARIETAL ANTIBODY B12 INJECTIONS GIVEN THEN STARTED ON PO 07/2017 DEMENTIA - FOLLOWING WITH NEUROLOGY DEPRESSION - FOLLOWED WITH PSYCHIATRY [address] FOWLER NO LONGER CARES FOR ADULTS - WE HAVE TAKEN OVER SERTRALINE SCRIPT 08/2018 HYPERCHOLESTEROLEMIA WITH LDL > 190 08/2018, ASCVD RISK = 2.4% 04/2019, 2.5% 04/2020 SEIZURE DISORDER BEING INVESTIGATED CHRONIC LEFT SHOULDER PAIN - HAD SURGERY BY DR. GREEN IN 1999 ALLERGIES AMITRIPTYLINE HCL: MEDICATION INTERACTION - CONTRAINDICATION PENICILLIN (FOR ALLERGIES USE ONLY): DIFFICULTY BREATHING - ALLERGY SHELLFISH: FACE AND FINGERS SWELL - ALLERGY GABAPENTIN: NAUSEA - SIDE EFFECTS SOCIAL HISTORY GENERAL: TOBACCO USE ARE YOU A:NONSMOKER NEVER SMOKER LATEX QUESTIONNAIRE LATEX ALLERGY : HAVE YOU EVER DEVELOPED ANY TYPE OF REACTION AFTER HANDLING LATEX PRODUCTS SUCH RUBBER GLOVES, CONDOMS, DIAPHRAGMS, BALLOONS, SOCKS, OR UNDERWEAR?NO LATEX ALLERGY : HAVE YOU EVER DEVELOPED ANY TYPE OF REACTION DURING OR AFTER DENTAL APPOINTMENT, VAGINAL/RECTAL EXAMINATION, SURGICAL PROCEDURE, OR ANY OTHER EXPOSURE?NO LATEX RISK : HAVE YOU EVER HAD ANY DIFFICULTY BREATHING OR HIVES AFTER EATING OR HANDLING ANY FRUITS, OR VEGETABLES; SUCH KIWI, BANANAS, STONE FRUITS, OR CHESTNUTSNO LATEX RISK : DO YOU HAVE A PREVIOUS PERSONAL HISTORY OF MORE THAN NINE SURGERIES, SPINA BIFIDA, OR REPEATED CATHERIZATIONS? NO LATEX RISK : ARE YOU FREQUENTLY EXPOSED TO LATEX PRODUCTS IN YOUR OCCUPATION?NO DATE ASKED : 09/01/2020 ALCOHOL USE: YES, ONCE IN A WHILE. LUNG CANCER SCREENING SMOKING STATUS:NON SMOKER ALCOHOL SCREENING DID YOU HAVE A DRINK CONTAINING ALCOHOL IN THE PAST YEAR?YES HOW OFTEN DID YOU HAVE SIX OR MORE DRINKS ON ONE OCCASION IN THE PAST YEAR?NEVER (0 POINTS) HOW MANY DRINKS DID YOU HAVE ON A TYPICAL DAY WHEN YOU WERE DRINKING IN THE PAST YEAR?1 OR 2 (0 POINTS) HOW OFTEN DID YOU HAVE A DRINK CONTAINING ALCOHOL IN THE PAST YEAR?MONTHLY OR LESS (1 POINT) POINTS1 INTERPRETATIONNEGATIVE RECREATIONAL DRUG USE DRUG USE?NO SEXUAL HX HAD SEX IN THE LAST 12 MONTHS (VAGINAL, ORAL, OR ANAL)?NO LMP:HYSTER HAVE YOU EVER HAD AN STD?NO VOODOO [id number] [employer] LANG[employer]AGE LANGUAGES SPOKEN:MONGOLIAN EDUCATION LEVEL OF EDUCATION:HIGH SCHOOL LEARNING BARRIERS / SPECIAL NEEDS CHANGE FROM LAST VISIT?NO BARRIERS TO LEARNING?NO HEARING IMPAIRED?NO VISION IMPAIRED?YES :CORRECTIVE LENSES COGNITIVELY IMPAIRED?NO READINESS TO LEARN?YES LEARNING PREFERENCES?NO LEARNING CAPABILITIES PRESENT?YES EMOTIONAL BARRIERS?YES COMMENTS DEMENTIA SPECIAL DEVICES?NO AIR CHIPPER NEEDED?NO DOMESTIC VIOLENCE STATUS: DO YOU FEEL SAFE IN YOUR ENVIRONMENT?YES OCCUPATION: [employer] DIS[employer]. DIET: REGULAR. EXERCISE: WALKS. MARITAL STATUS: . OTHERS AT HOME: SPOUSE. TODAY'S VISIT NOTES 08/06/2019, PATIENT DESCRIBES PAIN : IT COMES AND GOES, THROBBING, OTHER TIGHTNESS, SPASMS, FROM 0-10, WHAT LEVEL IS YOUR PAIN TODAY? 10. - PFS REFERRAL NEEDED?YES CURIOUS ABOUT [facility] PROXY/LW., "WHAT HAPPENS IF SOMETHING HAPPENS TO HIM." CLERGY REFERRAL NEEDED?NO PUBLIC HEALTH REFERRAL NEEDED?NO WAS THE PROVIDER NOTIFIED OF ANY PERTINENT INFO?YES REFERRAL COMPLETED? 04/05/20 PHONE NUMBER GIVEN TO PATIENT ADVOCATE . HAS THE PATIENT BEEN EDUCATED REGARDING HIS/HER PLAN OF CARE?YES HAS THE PATIENT BEEN EDUCATED REGARDING PAIN, THE RISK FOR PAIN, THE IMPORTANCE OF EFFECTIVE PAIN MANAGEMENT, AND THE PAIN ASSESSMENT PROCESS?YES ADVANCE DIRECTIVE ADVANCE DIRECTIVE DISCUSSED WITH PATIENT:YES 04/05/20 NO ADVANCED DIRECTIVES, DECLINED INFORMATION ON HCP AT THIS TIME. REVIEW OF SYSTEMS CONSTITUTIONAL: ANY RECENT FEVER NO . CHILLS NO . WEIGHT CHANGE OF UNKNOWN REASONS NO . GASTROENTEROLOGY: NEW UNEXPLAINABLE CHANGES IN BOWEL CONTROL NO . CONSTIPATION NO . GENITOURINARY: ANY NEW CHANGE IN BLADDER CONTROL? NO . NEUROLOGY: NEW ONSET DIZZINESS OR NEUROLOGICAL CHANGES NOT MENTIONED NO . NEW NUMBNESS OR PAIN PATTERNS NOT MENTIONED AND PERTINENT TO TODAY'S VISIT NO . CARDIOLOGY: NEW CHEST PRESSURE NO . PATIENT DENIES NO . RESPIRATORY: UNEXPLAINABLE COUGH NO . NEW SHORTNESS OF BREATH NO . VITAL SIGNS WT 154.6 LBS, HT 62 IN, BMI 28.27 INDEX, BP 111/67 MM HG, HR 55 /MIN, RR 18 /MIN, TEMP 98.1 F, OXYGEN SAT % 96%, SAFE IN ENV? (Y/N) YES, NA INITIALS AK 09:24T.CARMELO MORIN. EXAMINATION GENERAL EXAMINATION: LUNGS:LUNG SOUNDS ARE CLEAR. HEART:HEART RATE REGULAR. MUSCULOSKELETAL:EQUAL STRONG SOLAR CREW MEMBER STRENGTH BILAT HANDS.ABDUCTION LEFT ARM LIMITED TO 40 DEGREES. LEFT SHOULDER WITH WELL HEALED SCAR OVER LEFT SHOULDER.TENDER TO TOUCH OVER LEFT SHOULDER. ASSESSMENTS PAIN IN LEFT SHOULDER - M25.512 (PRIMARY) TREATMENT PAIN IN LEFT SHOULDER CONTINUE IBUPROFEN TABLET, 800 MG, 1 TABLET WITH FOOD OR MILK NEEDED, ORALLY FOR PAIN, Q8H PRN MDD3 PROCEDURES PN WORKMANS' COMP OPINION IN YOUR OPINION, WAS THE INCIDENT THAT THE PATIENT DESCRIBED THE COMPETENT MEDICAL CAUSE OF THIS INJURY/ILLNESS? YES ARE THE PATIENT'S COMPLAINTS CONSISTENT WITH HIS/HER HISTORY OF THE INJURY/ILLNESS? YES IS THE PATIENT'S HISTORY OF THE INJURY/ILLNESS CONSISTENT WITH YOUR OBJECTIVE FINDING? YES WHAT IS THE PERCENTAGE OF TEMPORARY IMPAIRMENT? MODERATE TO MARKED = 66.7% IS THE PATIENT WORKING? NO DOCTOR ON SITE: JEREMY TOWNSEND MD PROCEDURE CODES FA211 ESTABILISHED PATIENT [facility] CHARGE DISPOSITION & COMMUNICATION FOLLOW UP 3 MONTHS (REASON: LEFT SHOULDER PAIN/WORKMANS COMP) ELECTRONICALLY SIGNED BY JAMEE GE ON 09/01/2020 AT 01:29 PM EDT DISCLAIMER : THIS IS A VISIT SUMMARY EXTRACTED FROM THE [employer] [facility] CHART. IT IS NOT A COPY OF THE [employer] PROGRESS NOTE. WALE
== END ==
LOC: M PAIN 09:30
PROVIDERS: ATTEND Nurse Practitioner Family
DX: M25.512 Pain in left shoulder (principal); E55.9 Vitamin D deficiency, unspecified; Z96.89 Presence of other specified functional implants; Z86.59 Personal history of other mental and behavioral disorders; Z88.0 Allergy status to penicillin; Z88.8 Allergy status to other drugs, medicaments and biological substances; Z91.013 Allergy to seafood; Z79.899 Other long term (current) drug therapy

== ENCOUNTER → 2020-09-15 | Outpatient (CLI) | payer MEDICARE ==
[2020-09-15 14:31] LABS: BASO % 1.1 % (0.0-1.0); EOS # 0.2 10^3/uL (0.0-0.5); EOS % 4.4 % (0.0-3.0); HEMATOCRIT 41.1 % (36.0-47.0); HEMOGLOBIN 13.4 g/dl (12.0-15.5); LYMPH # 1.3 10^3/uL (1.5-5.0); LYMPH % 36.6 % (24.0-44.0); MEAN CORPUSCULAR HEMOGLOBIN 30.3 pg (27.0-33.0); MEAN CORPUSCULAR HGB CONC 32.6 g/dl (32.0-36.5); MONO # 0.3 10^3/uL (0.0-0.8); MONO % 7.5 % (2.0-8.0); NEUTROPHILS # 1.8 10^3/uL (1.5-8.5); NEUTROPHILS % 50.1 % (36.0-66.0); PLATELET COUNT, AUTOMATED 367 10^3/uL (150-450); RED BLOOD COUNT 4.42 10^6/uL (4.00-5.40); WHITE BLOOD COUNT 3.6 10^3/uL (4.0-10.0)
[2020-09-15 14:50] LABS: ALBUMIN 3.5 GM/DL (3.2-5.2); ALT/SGPT 16 U/L (12-78); BILIRUBIN,TOTAL 0.3 MG/DL (0.2-1.0); BLOOD UREA NITROGEN 8 MG/DL (7-18); CALCIUM LEVEL 9.2 MG/DL (8.5-10.1); CARBON DIOXIDE LEVEL 28 MEQ/L (21-32); CHLORIDE LEVEL 111 MEQ/L (98-107); CREATININE FOR GFR 0.76 MG/DL (0.55-1.30); GLOMERULAR FILTRATION RATE > 60.0 (>51); GLUCOSE, FASTING 86 MG/DL (70-100); POTASSIUM SERUM 4.3 MEQ/L (3.5-5.1); SODIUM LEVEL 143 MEQ/L (136-145); TOTAL PROTEIN 6.5 GM/DL (6.4-8.2); VALPROIC ACID (DEPAKOTE) 76.7 UG/ML (50.0-100.0)
[2020-09-15 14:53] LABS: VITAMIN B12 LEVEL 471 PG/ML
[2020-09-15 14:55] LABS: FOLATE 14.7 NG/ML
== END ==
LOC: M PLALAB 10:10
PROVIDERS: ATTEND Psychiatry & Neurology Neurology
DX: G40.909 Epilepsy, unspecified, not intractable, without status epilepticus (principal); R41.3 Other amnesia

== ENCOUNTER → 2020-12-22 | Outpatient (CLI) | payer MEDICARE, OTHER | LOC: M PAIN 10:15 | PROVIDERS: ATTEND Anesthesiology | DX: M25.512 Pain in left shoulder (principal); G89.29 Other chronic pain; E55.9 Vitamin D deficiency, unspecified; F03.90 Unspecified dementia, unspecified severity, without behavioral disturbance, psychotic disturbance, mood disturbance, and anxiety; Z96.89 Presence of other specified functional implants; Z86.59 Personal history of other mental and behavioral disorders; Z88.0 Allergy status to penicillin; Z88.8 Allergy status to other drugs, medicaments and biological substances; Z91.013 Allergy to seafood; Z79.899 Other long term (current) drug therapy ==

== ENCOUNTER → 2020-12-22 | Outpatient (REF) | payer OTHER ==
[2020-12-22 19:12] LABS: BASO % 0.6 % (0.0-1.0); EOS # 0.1 10^3/uL (0.0-0.5); EOS % 2.4 % (0.0-3.0); HEMATOCRIT 38.5 % (36.0-47.0); LYMPH # 1.4 10^3/uL (1.5-5.0); LYMPH % 30.8 % (24.0-44.0); MEAN CORPUSCULAR HGB CONC 33.8 g/dl (32.0-36.5); MEAN CORPUSCULAR VOLUME 91.9 fl (80.0-96.0); MONO # 0.4 10^3/uL (0.0-0.8); MONO % 8.6 % (2.0-8.0); NEUTROPHILS # 2.7 10^3/uL (1.5-8.5); NEUTROPHILS % 57.4 % (36.0-66.0); PLATELET COUNT, AUTOMATED 341 10^3/uL (150-450); RED BLOOD COUNT 4.19 10^6/uL (4.00-5.40); WHITE BLOOD COUNT 4.7 10^3/uL (4.0-10.0)
[2020-12-22 19:44] LABS: ALBUMIN 3.4 GM/DL (3.2-5.2); ALT/SGPT 21 U/L (12-78); BILIRUBIN,TOTAL 0.4 MG/DL (0.2-1.0); BLOOD UREA NITROGEN 8 MG/DL (7-18); CALCIUM LEVEL 9.3 MG/DL (8.8-10.2); CARBON DIOXIDE LEVEL 28 MEQ/L (21-32); CHLORIDE LEVEL 112 MEQ/L (98-107); CREATININE FOR GFR 0.78 MG/DL (0.55-1.30); GLOMERULAR FILTRATION RATE > 60.0 (>45); GLUCOSE, FASTING 74 MG/DL (70-100); POTASSIUM SERUM 3.7 MEQ/L (3.5-5.1); SODIUM LEVEL 145 MEQ/L (136-145); TOTAL PROTEIN 6.3 GM/DL (6.4-8.2)
[2020-12-22 21:01] LABS: VITAMIN B12 LEVEL 509 PG/ML (247-911)
== END ==
LOC: M LAB REF 18:33
PROVIDERS: ATTEND Hospitalist
DX: F03.91 Unspecified dementia, unspecified severity, with behavioral disturbance (principal)

== ENCOUNTER → 2021-01-03 | Outpatient (CLI) | payer MEDICARE ==
--- NOTE | 2021-01-03 17:58 | REPVR ---
PROCEDURE INFORMATION: Exam: CT Head Without Contrast Exam date and time: 01/03/2021 5:04 PM Age: 60 years old Clinical indication: Condition or disease; Other: Dementia TECHNIQUE: Imaging protocol: Computed tomography of the head without contrast. Radiation optimization: All CT scans at this facility use at least one of these dose optimization techniques: automated exposure control; mA and/or kV adjustment per patient size (includes targeted exams where dose is matched to clinical indication); or iterative reconstruction. COMPARISON: CT Head without contrast 11/26/2017 5:46 PM FINDINGS: Brain: There is no acute intracranial hemorrhage, cerebral edema, or midline shift. Moderate cerebral and cerebellar volume loss is present. Cerebral ventricles: No hydrocephalus. Paranasal sinuses: There is no acute sinusitis. Mastoid air cells: Visualized mastoid air cells are well aerated. Orbital cavity: Unremarkable as visualized. Bones/joints: Hyperostosis frontalis interna is noted. Soft tissues: Unremarkable. IMPRESSION: 1. No acute abnormality. 2. Chronic findings as discussed above. Electronically signed by: Rio French On 01/03/2021 17:57:31 PM
== END ==
LOC: M RAD 16:27
PROVIDERS: ATTEND Hospitalist
DX: F03.90 Unspecified dementia, unspecified severity, without behavioral disturbance, psychotic disturbance, mood disturbance, and anxiety (principal)

== ENCOUNTER → 2021-01-05 | Outpatient (REF) | payer MEDICARE ==
[2021-01-05 13:17] LABS: BASO # 0.1 10^3/uL (0.0-0.2); BASO % 0.8 % (0.0-1.0); EOS # 0.2 10^3/uL (0.0-0.5); EOS % 3.4 % (0.0-3.0); HEMATOCRIT 38.6 % (36.0-47.0); HEMOGLOBIN 12.8 g/dl (12.0-15.5); LYMPH # 1.7 10^3/uL (1.5-5.0); LYMPH % 27.1 % (24.0-44.0); MEAN CORPUSCULAR HEMOGLOBIN 30.8 pg (27.0-33.0); MEAN CORPUSCULAR HGB CONC 33.2 g/dl (32.0-36.5); MEAN CORPUSCULAR VOLUME 92.8 fl (80.0-96.0); MONO # 0.5 10^3/uL (0.0-0.8); MONO % 7.5 % (2.0-8.0); NEUTROPHILS # 3.8 10^3/uL (1.5-8.5); PLATELET COUNT, AUTOMATED 338 10^3/uL (150-450); RED BLOOD COUNT 4.16 10^6/uL (4.00-5.40); WHITE BLOOD COUNT 6.2 10^3/uL (4.0-10.0)
== END ==
LOC: M LABDRWAD 12:39
PROVIDERS: ATTEND Psychiatry & Neurology Neurology
DX: R51.9 Headache, unspecified (principal); Z79.899 Other long term (current) drug therapy

== ENCOUNTER → 2021-01-24 | Outpatient (CLI) | payer MEDICARE ==
--- NOTE | 2021-01-24 18:18 | REP ---
INDICATION: Dementia COMPARISON: None TECHNIQUE: 7.78 mCi of FDG 18 was administered intravenously via the right hand. Afternoon and appropriate uptake period, PET-CT images were obtained through the brain. FINDINGS: CT: There is moderate diffuse cerebral atrophy with concomitant ventriculomegaly. There is no evidence of acute intracranial hemorrhage or infarction. There are no abnormal intracranial masses or mass effects. PET: There is relative hypo metabolism in the posterior cingulate precuneus gyri and the posterior temporoparietal cortex. Additionally, there is relative hypo metabolism in the prefrontal cortex. There is relatively preserved metabolic activity in the sensory motor cortex, the visual cortex, the basal ganglia and thalami and the cerebellum. Activity IMPRESSION: The pattern of hypometabolism is consistent with Alzheimer's disease. <Electronically signed by Humberto La > 01/24/21 5050
== END ==
LOC: M PLARAD 14:52
PROVIDERS: ATTEND Hospitalist
DX: F03.91 Unspecified dementia, unspecified severity, with behavioral disturbance (principal); R63.8 Other symptoms and signs concerning food and fluid intake; R94.02 Abnormal brain scan
CPT/HCPCS: 78608; A9552

== ENCOUNTER → 2021-03-04 | Outpatient (CLI) | payer OTHER, MEDICARE ==
[2021-03-04 15:26] LABS: BASO % 0.6 % (0.0-1.0); EOS # 0.3 10^3/uL (0.0-0.5); EOS % 6.6 % (0.0-3.0); HEMATOCRIT 40.5 % (36.0-47.0); HEMOGLOBIN 13.1 g/dl (12.0-15.5); LYMPH # 1.6 10^3/uL (1.5-5.0); LYMPH % 34.7 % (24.0-44.0); MEAN CORPUSCULAR HEMOGLOBIN 30.5 pg (27.0-33.0); MEAN CORPUSCULAR HGB CONC 32.3 g/dl (32.0-36.5); MEAN CORPUSCULAR VOLUME 94.2 fl (80.0-96.0); MONO # 0.4 10^3/uL (0.0-0.8); NEUTROPHILS # 2.3 10^3/uL (1.5-8.5); NEUTROPHILS % 48.9 % (36.0-66.0); PLATELET COUNT, AUTOMATED 348 10^3/uL (150-450); WHITE BLOOD COUNT 4.7 10^3/uL (4.0-10.0)
[2021-03-04 15:38] LABS: INR 1.04; PROTHROMBIN TIME 14.1 SECONDS (12.7-14.5)
[2021-03-04 15:43] LABS: BLOOD UREA NITROGEN 6 MG/DL (7-18); CALCIUM LEVEL 9.4 MG/DL (8.8-10.2); CARBON DIOXIDE LEVEL 28 MEQ/L (21-32); CHLORIDE LEVEL 110 MEQ/L (98-107); CREATININE FOR GFR 0.76 MG/DL (0.55-1.30); GLOMERULAR FILTRATION RATE > 60.0 (>45); GLUCOSE, FASTING 87 MG/DL (70-100); POTASSIUM SERUM 4.1 MEQ/L (3.5-5.1); SODIUM LEVEL 142 MEQ/L (136-145)
== END ==
LOC: M PLALAB 12:16
PROVIDERS: ATTEND Physician Assistant
DX: Z01.818 Encounter for other preprocedural examination (principal)

== ENCOUNTER → 2021-03-16 | Outpatient (CLI) | payer OTHER | LOC: M PAIN 11:30 | PROVIDERS: ATTEND Anesthesiology | DX: M25.512 Pain in left shoulder (principal); E55.9 Vitamin D deficiency, unspecified; E53.8 Deficiency of other specified B group vitamins; F03.90 Unspecified dementia, unspecified severity, without behavioral disturbance, psychotic disturbance, mood disturbance, and anxiety; F32.A Depression, unspecified; E78.00 Pure hypercholesterolemia, unspecified; G40.909 Epilepsy, unspecified, not intractable, without status epilepticus; Z79.899 Other long term (current) drug therapy; Z88.0 Allergy status to penicillin; Z88.8 Allergy status to other drugs, medicaments and biological substances; Z91.030 Bee allergy status ==

== ENCOUNTER → 2021-05-25 | Outpatient (REF) | payer OTHER ==
[2021-05-25 13:03] LABS: HEMATOCRIT 38.6 % (36.0-47.0); HEMOGLOBIN 12.6 g/dl (12.0-15.5); MEAN CORPUSCULAR HEMOGLOBIN 30.4 pg (27.0-33.0); MEAN CORPUSCULAR HGB CONC 32.6 g/dl (32.0-36.5); MEAN CORPUSCULAR VOLUME 93.2 fl (80.0-96.0); PLATELET COUNT, AUTOMATED 276 10^3/uL (150-450); RED BLOOD COUNT 4.14 10^6/uL (4.00-5.40); WHITE BLOOD COUNT 3.9 10^3/uL (4.0-10.0)
[2021-05-25 13:31] LABS: ALBUMIN 3.4 GM/DL (3.2-5.2); ALT/SGPT 16 U/L (12-78); BILIRUBIN,TOTAL 0.3 MG/DL (0.2-1.0); BLOOD UREA NITROGEN 6 MG/DL (7-18); CALCIUM LEVEL 9.3 MG/DL (8.8-10.2); CARBON DIOXIDE LEVEL 30 MEQ/L (21-32); CHLORIDE LEVEL 110 MEQ/L (98-107); CHOLESTEROL LEVEL 233 MG/DL (<200); CHOLESTEROL RISK RATIO 3.148 (<5); CREATININE FOR GFR 0.79 MG/DL (0.55-1.30); FREE T4 0.88 NG/DL (0.76-1.46); GLOMERULAR FILTRATION RATE > 60.0 (>45); GLUCOSE, FASTING 79 MG/DL (70-100); HDL CHOLESTEROL 74 MG/DL (>40); LDL CHOLESTEROL 139 MG/DL (<100); NON-HDL-C 159 MG/DL; SODIUM LEVEL 143 MEQ/L (136-145); TOTAL PROTEIN 6.3 GM/DL (6.4-8.2); TRIGLYCERIDES LEVEL 100 MG/DL (<150)
== END ==
LOC: M SFHCADAM 09:44
PROVIDERS: ATTEND Physician Assistant
DX: E78.00 Pure hypercholesterolemia, unspecified (principal); E53.8 Deficiency of other specified B group vitamins; Z23 Encounter for immunization

== ENCOUNTER → 2021-06-06 | Outpatient (CLI) | payer MEDICARE | LOC: M WUC 13:00 | PROVIDERS: ATTEND Physician Assistant | DX: M25.522 Pain in left elbow (principal) ==

== ENCOUNTER → 2021-06-15 | Outpatient (CLI) | payer MEDICARE | LOC: M PAIN 10:30 | PROVIDERS: ATTEND Nurse Practitioner Family | DX: M25.512 Pain in left shoulder (principal); G89.29 Other chronic pain; E55.9 Vitamin D deficiency, unspecified; F03.90 Unspecified dementia, unspecified severity, without behavioral disturbance, psychotic disturbance, mood disturbance, and anxiety; Z96.89 Presence of other specified functional implants; Z86.59 Personal history of other mental and behavioral disorders; Z88.0 Allergy status to penicillin; Z88.8 Allergy status to other drugs, medicaments and biological substances; Z91.011 Allergy to milk products; Z79.899 Other long term (current) drug therapy ==

== ENCOUNTER 2021-09-09 17:57 | Inpatient (IN) | payer MEDICARE ==
[~2021-09-09] VITALS: Ht 162.6 cm; Wt 66.9 kg
[2021-09-09 21:13] LABS: HEMATOCRIT 39.1 % (36.0-47.0); HEMOGLOBIN 13.5 g/dl (12.0-15.5); MEAN CORPUSCULAR HEMOGLOBIN 31.9 pg (27.0-33.0); MEAN CORPUSCULAR HGB CONC 34.5 g/dl (32.0-36.5); MEAN CORPUSCULAR VOLUME 92.4 fl (80.0-96.0); PLATELET COUNT, AUTOMATED 401 10^3/uL (150-450); RED BLOOD COUNT 4.23 10^6/uL (4.00-5.40); WHITE BLOOD COUNT 9.2 10^3/uL (4.0-10.0)
[2021-09-09 21:30] LABS: ACETAMINOPHEN LEVEL < 2.0 UG/ML (10.0-30.0); ALBUMIN 3.7 GM/DL (3.2-5.2); ALT/SGPT 21 U/L (12-78); BILIRUBIN,DIRECT < 0.1 MG/DL (0.0-0.2); BILIRUBIN,TOTAL 0.3 MG/DL (0.2-1.0); BLOOD UREA NITROGEN 8 MG/DL (7-18); CALCIUM LEVEL 10.2 MG/DL (8.8-10.2); CARBON DIOXIDE LEVEL 27 MEQ/L (21-32); CHLORIDE LEVEL 110 MEQ/L (98-107); CREATININE FOR GFR 0.84 MG/DL (0.55-1.30); ETHYL ALCOHOL (ETHANOL) < 0.003 % (0.000-0.010); GLOMERULAR FILTRATION RATE > 60.0 (>45); GLUCOSE, FASTING 101 MG/DL (70-100); POTASSIUM SERUM 3.6 MEQ/L (3.5-5.1); SALICYLATE LEVEL < 1.7 MG/DL (5.0-30.0); SODIUM LEVEL 145 MEQ/L (136-145); TOTAL PROTEIN 7.1 GM/DL (6.4-8.2)
[2021-09-09 21:33] LABS: RSV AMPLIFICATION NEGATIVE (NEGATIVE)
[2021-09-09 22:27] LABS: AMPHETAMINES LEVEL URINE NEGATIVE (NEGATIVE); BARBITURATES URINE NEGATIVE (NEGATIVE); BENZODIAZEPINES URINE NEGATIVE (NEGATIVE); CANNABINOIDS URINE NEGATIVE (NEGATIVE); COCAINE METABOLITE URINE NEGATIVE (NEGATIVE); METHADONE URINE NEGATIVE (NEGATIVE); OPIATES URINE NEGATIVE (NEGATIVE); PHENCYCLIDINE URINE NEGATIVE (NEGATIVE)
[2021-09-09] MEDS ORDERED: MEMA10TA19 PO (22:36)
[2021-09-09] MEDS ORDERED: DIVA500T94 PO (22:36)
[2021-09-09] MEDS ORDERED: SERT50TA29 PO (22:36)
[2021-09-09] MEDS ORDERED: DONE10TA90 PO (22:36)
[2021-09-09] MEDS ORDERED: LORazepam 2 MG TAB PO ONE (23:00)
[2021-09-10] MEDS ORDERED: HOME MED LIST COMPLETE! XX SCH (02:25)
[2021-09-10] MEDS ORDERED: ACETAMINOPHEN TAB 650MG DOSE (2X325MG) PO PRN (17:00)
[2021-09-10] MEDS ORDERED: MOM 30ML SUSPENSION UDC PO PRN (17:00)
[2021-09-10] MEDS ORDERED: MAALOX 30 ML SUSP *UDC PO PRN (17:00)
[2021-09-10 19:50] VITALS: BP 135/95
[2021-09-10] MEDS: MEMANTINE 5MG TABLET (NAMENDA) PO SCH (21:53)
[2021-09-10] MEDS: DIVALPROEX 500 MG TAB PO SCH (21:53)
[2021-09-11 03:35] VITALS: BP 126/57
[2021-09-11 08:59] LABS: HEMATOCRIT 36.3 % (36.0-47.0); HEMOGLOBIN 12.3 g/dl (12.0-15.5); MEAN CORPUSCULAR HEMOGLOBIN 30.6 pg (27.0-33.0); MEAN CORPUSCULAR HGB CONC 33.9 g/dl (32.0-36.5); MEAN CORPUSCULAR VOLUME 90.3 fl (80.0-96.0); PLATELET COUNT, AUTOMATED 332 10^3/uL (150-450); RED BLOOD COUNT 4.02 10^6/uL (4.00-5.40); WHITE BLOOD COUNT 5.1 10^3/uL (4.0-10.0)
[2021-09-11] MEDS ORDERED: SERTRALINE HCL 25 MG TABLET PO SCH (09:00)
[2021-09-11 09:17] LABS: BLOOD UREA NITROGEN 9 MG/DL (7-18); CALCIUM LEVEL 9.2 MG/DL (8.8-10.2); CARBON DIOXIDE LEVEL 25 MEQ/L (21-32); CHLORIDE LEVEL 114 MEQ/L (98-107); CREATININE FOR GFR 0.71 MG/DL (0.55-1.30); GLOMERULAR FILTRATION RATE > 60.0 (>45); GLUCOSE, FASTING 88 MG/DL (70-100); POTASSIUM SERUM 3.6 MEQ/L (3.5-5.1); SODIUM LEVEL 145 MEQ/L (136-145)
[2021-09-11] MEDS: MEMANTINE 5MG TABLET (NAMENDA) PO SCH ×2 (09:20→20:23)
[2021-09-11] MEDS: DIVALPROEX 500 MG TAB PO SCH ×2 (09:20→20:23)
[2021-09-11] MEDS: ENOXAPARIN 40MG/0.4ML SYRINGE (J1650 PER 10MG) SC SCH (09:21)
[2021-09-11] MEDS: DONEPEZIL 5 MG TAB PO SCH (09:21)
[2021-09-11 12:00] VITALS: BP 119/72
[2021-09-11 19:32] VITALS: BP 127/67
[2021-09-12 04:00] VITALS: BP 133/74
[2021-09-12] MEDS: DIVALPROEX 500 MG TAB PO SCH ×2 (09:28→21:17)
[2021-09-12] MEDS: SERTRALINE 100 MG TAB PO SCH (09:28)
[2021-09-12] MEDS: DONEPEZIL 5 MG TAB PO SCH (09:28)
[2021-09-12] MEDS: MEMANTINE 5MG TABLET (NAMENDA) PO SCH ×2 (09:29→21:16)
[2021-09-12] MEDS: ENOXAPARIN 40MG/0.4ML SYRINGE (J1650 PER 10MG) SC SCH (09:29)
[2021-09-12 21:20] VITALS: BP 120/72
[2021-09-13 04:51] VITALS: BP 116/65
[2021-09-13 06:00] LABS: HEMATOCRIT 37.1 % (36.0-47.0); HEMOGLOBIN 12.5 g/dl (12.0-15.5); MEAN CORPUSCULAR HEMOGLOBIN 30.8 pg (27.0-33.0); MEAN CORPUSCULAR HGB CONC 33.7 g/dl (32.0-36.5); MEAN CORPUSCULAR VOLUME 91.4 fl (80.0-96.0); PLATELET COUNT, AUTOMATED 324 10^3/uL (150-450); RED BLOOD COUNT 4.06 10^6/uL (4.00-5.40); WHITE BLOOD COUNT 3.8 10^3/uL (4.0-10.0)
[2021-09-13] MEDS: ENOXAPARIN 40MG/0.4ML SYRINGE (J1650 PER 10MG) SC SCH (09:19)
[2021-09-13] MEDS: DIVALPROEX 500 MG TAB PO SCH ×2 (09:19→20:50)
[2021-09-13] MEDS: SERTRALINE 100 MG TAB PO SCH (09:19)
[2021-09-13] MEDS: MEMANTINE 5MG TABLET (NAMENDA) PO SCH ×2 (09:19→20:50)
[2021-09-13] MEDS: DONEPEZIL 5 MG TAB PO SCH (09:19)
[2021-09-13 19:31] VITALS: BP 115/73
[2021-09-14 04:00] VITALS: BP 106/58
[2021-09-14] MEDS: DONEPEZIL 5 MG TAB PO SCH (09:29)
[2021-09-14] MEDS: SERTRALINE 100 MG TAB PO SCH (09:29)
[2021-09-14] MEDS: ENOXAPARIN 40MG/0.4ML SYRINGE (J1650 PER 10MG) SC SCH (09:30)
[2021-09-14] MEDS: MEMANTINE 5MG TABLET (NAMENDA) PO SCH (09:30)
[2021-09-14] MEDS: DIVALPROEX 500 MG TAB PO SCH (09:30)
== END 2021-09-14 14:09 | disposition home or self-care (01) | DRG 57 ==
LOC: M ED 17:57 → M ED INP 09-10 16:58 → M 4MAIN 09-10 19:50
PROVIDERS: ADMIT Family Medicine; ATTEND Internal Medicine
DX: G30.9 Alzheimer's disease, unspecified (principal); R45.851 Suicidal ideations; G90.512 Complex regional pain syndrome I of left upper limb; G40.909 Epilepsy, unspecified, not intractable, without status epilepticus; G43.909 Migraine, unspecified, not intractable, without status migrainosus; E78.00 Pure hypercholesterolemia, unspecified; Z88.0 Allergy status to penicillin; Z91.013 Allergy to seafood; F02.80 Dementia in other diseases classified elsewhere, unspecified severity, without behavioral disturbance, psychotic disturbance, mood disturbance, and anxiety; E55.9 Vitamin D deficiency, unspecified; E53.8 Deficiency of other specified B group vitamins; Z79.899 Other long term (current) drug therapy

== ENCOUNTER → 2021-10-19 | Outpatient (CLI) | payer OTHER ==
[~2021-10-19] MED LIST changes: +DIVA500T94 PO; +DONE10TA90 PO; +MEMA10TA19 PO; +SERT50TA29 PO
== END ==
LOC: M PAIN 10:15
PROVIDERS: ATTEND Nurse Practitioner Family
DX: M25.512 Pain in left shoulder (principal); G89.29 Other chronic pain; E55.9 Vitamin D deficiency, unspecified; G30.9 Alzheimer's disease, unspecified; F02.80 Dementia in other diseases classified elsewhere, unspecified severity, without behavioral disturbance, psychotic disturbance, mood disturbance, and anxiety; Z96.89 Presence of other specified functional implants; Z86.59 Personal history of other mental and behavioral disorders; Z88.0 Allergy status to penicillin; Z88.8 Allergy status to other drugs, medicaments and biological substances; Z91.013 Allergy to seafood; Z79.899 Other long term (current) drug therapy

== ENCOUNTER → 2022-01-16 | Outpatient (CLI) | payer MEDICARE, OTHER | LOC: M PAIN 09:30 | PROVIDERS: ATTEND Nurse Practitioner Family | DX: M25.512 Pain in left shoulder (principal); G89.29 Other chronic pain; E55.9 Vitamin D deficiency, unspecified; G30.9 Alzheimer's disease, unspecified; F02.80 Dementia in other diseases classified elsewhere, unspecified severity, without behavioral disturbance, psychotic disturbance, mood disturbance, and anxiety; Z96.89 Presence of other specified functional implants; Z86.59 Personal history of other mental and behavioral disorders; Z88.0 Allergy status to penicillin; Z88.8 Allergy status to other drugs, medicaments and biological substances; Z91.013 Allergy to seafood; Z79.899 Other long term (current) drug therapy ==

== ENCOUNTER → 2022-04-17 | Outpatient (CLI) | payer OTHER | LOC: M PAIN 09:15 | PROVIDERS: ATTEND Nurse Practitioner Family | DX: M25.512 Pain in left shoulder (principal); G89.29 Other chronic pain; E55.9 Vitamin D deficiency, unspecified; G30.9 Alzheimer's disease, unspecified; F02.80 Dementia in other diseases classified elsewhere, unspecified severity, without behavioral disturbance, psychotic disturbance, mood disturbance, and anxiety; G40.909 Epilepsy, unspecified, not intractable, without status epilepticus; Z96.89 Presence of other specified functional implants; Z86.59 Personal history of other mental and behavioral disorders; Z88.0 Allergy status to penicillin; Z88.8 Allergy status to other drugs, medicaments and biological substances; Z91.013 Allergy to seafood; Z79.899 Other long term (current) drug therapy ==

== ENCOUNTER 2022-05-07 09:42 | Inpatient (IN) | payer MEDICARE, MEDICAID ==
[2022-05-07] MEDS: ENOXAPARIN 40MG/0.4ML SYRINGE (J1650 PER 10MG) SC SCH (09:00)
[2022-05-07] MEDS ORDERED: RISP0.253 PO (12:39)
[2022-05-07] MEDS ORDERED: MEMA28CA12 PO (12:39)
[2022-05-07 12:40] LABS: HEMATOCRIT 40.7 % (36.0-47.0); HEMOGLOBIN 13.2 g/dl (12.0-15.5); MEAN CORPUSCULAR HEMOGLOBIN 29.7 pg (27.0-33.0); MEAN CORPUSCULAR HGB CONC 32.4 g/dl (32.0-36.5); MEAN CORPUSCULAR VOLUME 91.5 fl (80.0-96.0); PLATELET COUNT, AUTOMATED 290 10^3/uL (150-450); RED BLOOD COUNT 4.45 10^6/uL (4.00-5.40); WHITE BLOOD COUNT 5.6 10^3/uL (4.0-10.0)
[2022-05-07] MEDS ORDERED: HOME MED LIST COMPLETE! XX SCH (12:40)
[2022-05-07 13:08] LABS: BLOOD UREA NITROGEN 13 MG/DL (9-23); CALCIUM LEVEL 9.6 MG/DL (8.3-10.6); CARBON DIOXIDE LEVEL 26 MMOL/L (20-31); CHLORIDE LEVEL 110 MMOL/L (98-107); CREATININE FOR GFR 0.78 MG/DL (0.55-1.30); GLOMERULAR FILTRATION RATE > 60.0 (>45); GLUCOSE, FASTING 120 MG/DL (74-106); SODIUM LEVEL 142 MMOL/L (136-145)
[2022-05-07 13:33] LABS: RSV AMPLIFICATION NEGATIVE (NEGATIVE)
[2022-05-07] MEDS ORDERED: PILL CUTTER 1 EACH XX PRN (14:25)
[2022-05-07 15:30] VITALS: BP 120/79
[2022-05-07] MEDS: ACETAMINOPHEN 500 MG TAB PO PRN (21:16)
[2022-05-07] MEDS: DIVALPROEX 500 MG TAB PO SCH (21:16)
[2022-05-07] MEDS: risperiDONE 0.5 MG TAB PO SCH (21:17)
[2022-05-07 22:00] VITALS: BP 140/86
[2022-05-08 06:00] VITALS: BP 114/71
[2022-05-08 06:20] LABS: HEMATOCRIT 41.1 % (36.0-47.0); HEMOGLOBIN 13.3 g/dl (12.0-15.5); MEAN CORPUSCULAR HEMOGLOBIN 29.4 pg (27.0-33.0); MEAN CORPUSCULAR HGB CONC 32.4 g/dl (32.0-36.5); MEAN CORPUSCULAR VOLUME 90.7 fl (80.0-96.0); PLATELET COUNT, AUTOMATED 283 10^3/uL (150-450); RED BLOOD COUNT 4.53 10^6/uL (4.00-5.40); WHITE BLOOD COUNT 4.8 10^3/uL (4.0-10.0)
[2022-05-08] MEDS: DIVALPROEX 500 MG TAB PO SCH ×2 (08:52→19:50)
[2022-05-08] MEDS: ENOXAPARIN 40MG/0.4ML SYRINGE (J1650 PER 10MG) SC SCH (08:52)
[2022-05-08] MEDS: SERTRALINE HCL 50 MG TAB PO SCH (08:52)
[2022-05-08] MEDS: DONEPEZIL 5 MG TAB PO SCH (08:53)
[2022-05-08] MEDS ORDERED: MEMANTINE 28 MG PO SCH (09:00)
[2022-05-08 14:00] VITALS: BP 126/82
[2022-05-08] MEDS: ACETAMINOPHEN 500 MG TAB PO PRN (19:50)
[2022-05-08] MEDS: risperiDONE 0.5 MG TAB PO SCH (19:51)
[2022-05-08 22:00] VITALS: BP 126/78
[2022-05-09 06:00] VITALS: BP 114/71
[2022-05-09] MEDS: DIVALPROEX 500 MG TAB PO SCH ×2 (08:25→20:02)
[2022-05-09] MEDS: SERTRALINE HCL 50 MG TAB PO SCH (08:25)
[2022-05-09] MEDS: DONEPEZIL 5 MG TAB PO SCH (08:25)
[2022-05-09] MEDS: ENOXAPARIN 40MG/0.4ML SYRINGE (J1650 PER 10MG) SC SCH (08:25)
[2022-05-09 14:00] VITALS: BP 161/86
[2022-05-09] MEDS: MEMANTINE 5MG TABLET (NAMENDA) PO SCH (20:02)
[2022-05-09] MEDS: risperiDONE 0.5 MG TAB PO SCH (20:02)
[2022-05-09] MEDS: ACETAMINOPHEN 500 MG TAB PO PRN (20:02)
[2022-05-09 22:00] VITALS: BP 136/84
[2022-05-10 05:27] VITALS: BP 110/63
[2022-05-10 06:17] LABS: HEMATOCRIT 40.4 % (36.0-47.0); HEMOGLOBIN 13.4 g/dl (12.0-15.5); MEAN CORPUSCULAR HGB CONC 33.2 g/dl (32.0-36.5); MEAN CORPUSCULAR VOLUME 90.6 fl (80.0-96.0); PLATELET COUNT, AUTOMATED 291 10^3/uL (150-450); RED BLOOD COUNT 4.46 10^6/uL (4.00-5.40); WHITE BLOOD COUNT 4.7 10^3/uL (4.0-10.0)
[2022-05-10 06:43] LABS: ALBUMIN 3.4 G/DL (3.2-5.2); ALKALINE PHOSPHATASE 58 U/L (46-116); ALT/SGPT 11 U/L (7.0-40); AST/SGOT 15 U/L (<34); BILIRUBIN,TOTAL 0.3 MG/DL (0.3-1.2); BLOOD UREA NITROGEN 13 MG/DL (9-23); CALCIUM LEVEL 9.3 MG/DL (8.3-10.6); CARBON DIOXIDE LEVEL 26 MMOL/L (20-31); CHLORIDE LEVEL 110 MMOL/L (98-107); CREATININE FOR GFR 0.83 MG/DL (0.55-1.30); GLOMERULAR FILTRATION RATE > 60.0 (>45); GLUCOSE, FASTING 83 MG/DL (74-106); POTASSIUM SERUM 3.8 MMOL/L (3.5-5.1); SODIUM LEVEL 143 MMOL/L (136-145)
[2022-05-10] MEDS: SERTRALINE HCL 50 MG TAB PO SCH (09:24)
[2022-05-10] MEDS: DIVALPROEX 500 MG TAB PO SCH ×2 (09:24→20:17)
[2022-05-10] MEDS: MEMANTINE 5MG TABLET (NAMENDA) PO SCH ×2 (09:24→20:18)
[2022-05-10] MEDS: ENOXAPARIN 40MG/0.4ML SYRINGE (J1650 PER 10MG) SC SCH (09:25)
[2022-05-10] MEDS: DONEPEZIL 5 MG TAB PO SCH (09:25)
[2022-05-10 14:30] VITALS: BP 110/82
[2022-05-10] MEDS: ACETAMINOPHEN 500 MG TAB PO PRN (20:18)
[2022-05-10] MEDS: risperiDONE 0.5 MG TAB PO SCH (20:18)
[2022-05-10 22:00] VITALS: BP 114/82
[2022-05-11 06:00] VITALS: BP 108/63
[2022-05-11] MEDS: MEMANTINE 5MG TABLET (NAMENDA) PO SCH ×2 (09:32→20:00)
[2022-05-11] MEDS: DONEPEZIL 5 MG TAB PO SCH (09:32)
[2022-05-11] MEDS: DIVALPROEX 500 MG TAB PO SCH ×2 (09:32→20:00)
[2022-05-11] MEDS: SERTRALINE HCL 50 MG TAB PO SCH (09:33)
[2022-05-11] MEDS: ENOXAPARIN 40MG/0.4ML SYRINGE (J1650 PER 10MG) SC SCH (09:34)
[2022-05-11] MEDS: risperiDONE 0.5 MG TAB PO SCH (20:00)
[2022-05-11] MEDS: ACETAMINOPHEN 500 MG TAB PO PRN (20:00)
[2022-05-11 22:00] VITALS: BP 118/68
[2022-05-12 06:00] VITALS: BP 108/71
[2022-05-12] MEDS: ENOXAPARIN 40MG/0.4ML SYRINGE (J1650 PER 10MG) SC SCH (09:43)
[2022-05-12] MEDS: DONEPEZIL 5 MG TAB PO SCH (09:44)
[2022-05-12] MEDS: MEMANTINE 5MG TABLET (NAMENDA) PO SCH ×2 (09:44→21:12)
[2022-05-12] MEDS: SERTRALINE HCL 50 MG TAB PO SCH (09:44)
[2022-05-12] MEDS: DIVALPROEX 500 MG TAB PO SCH ×2 (09:44→21:13)
[2022-05-12 14:33] VITALS: BP 112/77
[2022-05-12] MEDS: ACETAMINOPHEN 500 MG TAB PO PRN (21:13)
[2022-05-12] MEDS: risperiDONE 0.5 MG TAB PO SCH (21:13)
[2022-05-12 22:00] VITALS: BP 114/78
[2022-05-13 06:00] VITALS: BP 124/74
[2022-05-13 07:02] LABS: HEMATOCRIT 41.8 % (36.0-47.0); HEMOGLOBIN 13.6 g/dl (12.0-15.5); MEAN CORPUSCULAR HEMOGLOBIN 29.4 pg (27.0-33.0); MEAN CORPUSCULAR HGB CONC 32.5 g/dl (32.0-36.5); MEAN CORPUSCULAR VOLUME 90.3 fl (80.0-96.0); PLATELET COUNT, AUTOMATED 283 10^3/uL (150-450); RED BLOOD COUNT 4.63 10^6/uL (4.00-5.40); WHITE BLOOD COUNT 4.7 10^3/uL (4.0-10.0)
[2022-05-13 08:57] LABS: ALBUMIN 3.4 G/DL (3.2-5.2); ALKALINE PHOSPHATASE 59 U/L (46-116); ALT/SGPT 18 U/L (7.0-40); AST/SGOT < 8 U/L (<34); BILIRUBIN,TOTAL 0.4 MG/DL (0.3-1.2); BLOOD UREA NITROGEN 11 MG/DL (9-23); CALCIUM LEVEL 9.3 MG/DL (8.3-10.6); CARBON DIOXIDE LEVEL 30 MMOL/L (20-31); CHLORIDE LEVEL 111 MMOL/L (98-107); CREATININE FOR GFR 0.83 MG/DL (0.55-1.30); GLOMERULAR FILTRATION RATE > 60.0 (>45); GLUCOSE, FASTING 81 MG/DL (74-106); POTASSIUM SERUM 4.3 MMOL/L (3.5-5.1); SODIUM LEVEL 144 MMOL/L (136-145); TOTAL PROTEIN 6.1 G/DL (5.7-8.2)
[2022-05-13] MEDS: DONEPEZIL 5 MG TAB PO SCH (09:09)
[2022-05-13] MEDS: SERTRALINE HCL 50 MG TAB PO SCH (09:09)
[2022-05-13] MEDS: MEMANTINE 5MG TABLET (NAMENDA) PO SCH ×2 (09:09→20:22)
[2022-05-13] MEDS: ENOXAPARIN 40MG/0.4ML SYRINGE (J1650 PER 10MG) SC SCH (09:09)
[2022-05-13] MEDS: DIVALPROEX 500 MG TAB PO SCH ×2 (09:09→20:22)
[2022-05-13 15:07] VITALS: BP 99/61
[2022-05-13] MEDS: ACETAMINOPHEN 500 MG TAB PO PRN (20:22)
[2022-05-13] MEDS: risperiDONE 0.5 MG TAB PO SCH (20:22)
[2022-05-13 21:16] VITALS: BP 119/65
[2022-05-14 06:00] VITALS: BP 115/73
[2022-05-14] MEDS: DONEPEZIL 5 MG TAB PO SCH (08:31)
[2022-05-14] MEDS: MEMANTINE 5MG TABLET (NAMENDA) PO SCH ×2 (08:31→21:01)
[2022-05-14] MEDS: DIVALPROEX 500 MG TAB PO SCH ×2 (08:31→21:01)
[2022-05-14] MEDS: SERTRALINE HCL 50 MG TAB PO SCH (08:31)
[2022-05-14] MEDS: ENOXAPARIN 40MG/0.4ML SYRINGE (J1650 PER 10MG) SC SCH (08:31)
[2022-05-14 14:30] VITALS: BP 118/66
[2022-05-14] MEDS: risperiDONE 0.5 MG TAB PO SCH (21:01)
[2022-05-14] MEDS: ACETAMINOPHEN 500 MG TAB PO PRN (21:01)
[2022-05-14 22:00] VITALS: BP 120/79
[2022-05-15 06:00] VITALS: BP 121/99
[2022-05-15] MEDS: ENOXAPARIN 40MG/0.4ML SYRINGE (J1650 PER 10MG) SC SCH (09:16)
[2022-05-15] MEDS: DIVALPROEX 500 MG TAB PO SCH (09:17)
[2022-05-15] MEDS: MEMANTINE 5MG TABLET (NAMENDA) PO SCH (09:17)
[2022-05-15] MEDS: SERTRALINE HCL 50 MG TAB PO SCH (09:17)
[2022-05-15] MEDS: DONEPEZIL 5 MG TAB PO SCH (09:17)
== END 2022-05-15 13:25 | DRG 57 ==
LOC: M ED 09:42 → M ED INP 13:57 → ENRESERV 15:07 → M MS5PR 15:35
PROVIDERS: ADMIT Internal Medicine; ATTEND Internal Medicine
DX: G30.9 Alzheimer's disease, unspecified (principal); F02.80 Dementia in other diseases classified elsewhere, unspecified severity, without behavioral disturbance, psychotic disturbance, mood disturbance, and anxiety; G40.309 Generalized idiopathic epilepsy and epileptic syndromes, not intractable, without status epilepticus; M54.59 Other low back pain; Z88.0 Allergy status to penicillin; Z91.013 Allergy to seafood; Z79.899 Other long term (current) drug therapy

== ENCOUNTER → 2022-06-12 | Outpatient (CLI) | payer OTHER ==
[~2022-06-12] MED LIST changes: +MEMA28CA12 PO; +RISP0.253 PO
== END ==
LOC: M PAIN 09:15
PROVIDERS: ATTEND Nurse Practitioner Family
DX: M79.10 Myalgia, unspecified site (principal); G89.29 Other chronic pain; E55.9 Vitamin D deficiency, unspecified; G30.9 Alzheimer's disease, unspecified; F02.80 Dementia in other diseases classified elsewhere, unspecified severity, without behavioral disturbance, psychotic disturbance, mood disturbance, and anxiety; Z96.89 Presence of other specified functional implants; Z86.59 Personal history of other mental and behavioral disorders; Z88.0 Allergy status to penicillin; Z88.8 Allergy status to other drugs, medicaments and biological substances; Z91.013 Allergy to seafood; Z79.899 Other long term (current) drug therapy

== ENCOUNTER → 2022-08-18 | Outpatient (CLI) | payer OTHER | LOC: M PAIN 14:15 | PROVIDERS: ATTEND Nurse Practitioner Family | DX: M25.512 Pain in left shoulder (principal); G89.29 Other chronic pain; G30.9 Alzheimer's disease, unspecified; F02.80 Dementia in other diseases classified elsewhere, unspecified severity, without behavioral disturbance, psychotic disturbance, mood disturbance, and anxiety; Z86.59 Personal history of other mental and behavioral disorders; Z88.0 Allergy status to penicillin; Z88.8 Allergy status to other drugs, medicaments and biological substances; Z91.013 Allergy to seafood; Z79.899 Other long term (current) drug therapy ==

== ENCOUNTER → 2022-11-13 | Outpatient (CLI) | payer OTHER ==
[~2022-11-13] MED LIST changes: -AMIT25TA17 PO; +AMIT25TA19 PO
== END ==
LOC: M PAIN 09:00
PROVIDERS: ATTEND Nurse Practitioner Family
DX: M25.512 Pain in left shoulder (principal); G89.29 Other chronic pain; G30.9 Alzheimer's disease, unspecified; F02.80 Dementia in other diseases classified elsewhere, unspecified severity, without behavioral disturbance, psychotic disturbance, mood disturbance, and anxiety; Z96.89 Presence of other specified functional implants; Z86.59 Personal history of other mental and behavioral disorders; Z88.0 Allergy status to penicillin; Z88.8 Allergy status to other drugs, medicaments and biological substances; Z91.013 Allergy to seafood; Z79.899 Other long term (current) drug therapy

== ENCOUNTER → 2022-12-07 | Outpatient (REF) | payer OTHER ==
[2022-12-07 13:36] LABS: HEMATOCRIT 42.1 % (36.0-47.0); HEMOGLOBIN 13.9 g/dl (12.0-15.5); MEAN CORPUSCULAR HEMOGLOBIN 31.4 pg (27.0-33.0); MEAN CORPUSCULAR VOLUME 95.2 fl (80.0-96.0); PLATELET COUNT, AUTOMATED 302 10^3/uL (150-450); RED BLOOD COUNT 4.42 10^6/uL (4.00-5.40)
[2022-12-07 14:07] LABS: BLOOD UREA NITROGEN 11 MG/DL (9-23); CALCIUM LEVEL 9.5 MG/DL (8.3-10.6); CARBON DIOXIDE LEVEL 24 MMOL/L (20-31); CHLORIDE LEVEL 104 MMOL/L (98-107); CREATININE FOR GFR 0.84 MG/DL (0.55-1.30); GLOMERULAR FILTRATION RATE > 60.0 (>45); GLUCOSE, FASTING 116 MG/DL (74-106); POTASSIUM SERUM 3.9 MMOL/L (3.5-5.1); SODIUM LEVEL 137 MMOL/L (136-145)
== END ==
LOC: SKLAB6 12:26
PROVIDERS: ATTEND Nurse Practitioner Family
DX: R50.9 Fever, unspecified (principal)

== ENCOUNTER → 2023-01-11 | Outpatient (REF) | payer OTHER | LOC: SKLAB6 07:00 | PROVIDERS: ATTEND Internal Medicine | DX: G40.909 Epilepsy, unspecified, not intractable, without status epilepticus (principal) ==

== ENCOUNTER → 2023-02-12 | Outpatient (CLI) | payer OTHER | LOC: M PAIN 09:15 | PROVIDERS: ATTEND Nurse Practitioner Family | DX: M25.512 Pain in left shoulder (principal); G89.29 Other chronic pain; Z96.89 Presence of other specified functional implants; Z80.8 Family history of malignant neoplasm of other organs or systems; Z88.0 Allergy status to penicillin; Z88.8 Allergy status to other drugs, medicaments and biological substances; Z91.013 Allergy to seafood; Z79.899 Other long term (current) drug therapy ==

== ENCOUNTER → 2023-02-18 | Outpatient (REF) | payer OTHER ==
[2023-02-18 19:49] LABS: HEMOGLOBIN 13.5 g/dl (12.0-15.5); MEAN CORPUSCULAR HEMOGLOBIN 31.5 pg (27.0-33.0); MEAN CORPUSCULAR HGB CONC 33.8 g/dl (32.0-36.5); MEAN CORPUSCULAR VOLUME 93.2 fl (80.0-96.0); PLATELET COUNT, AUTOMATED 269 10^3/uL (150-450); RED BLOOD COUNT 4.29 10^6/uL (4.00-5.40); WHITE BLOOD COUNT 7.1 10^3/uL (4.0-10.0)
[2023-02-18 20:23] LABS: BLOOD UREA NITROGEN 20 MG/DL (9-23); CALCIUM LEVEL 9.2 MG/DL (8.3-10.6); CARBON DIOXIDE LEVEL 26 MMOL/L (20-31); CHLORIDE LEVEL 108 MMOL/L (98-107); CREATININE FOR GFR 0.75 MG/DL (0.55-1.30); GLOMERULAR FILTRATION RATE > 60.0 (>45); GLUCOSE, FASTING 103 MG/DL (74-106); POTASSIUM SERUM 4.4 MMOL/L (3.5-5.1); SODIUM LEVEL 142 MMOL/L (136-145)
[2023-02-18 20:30] LABS: APPEARANCE, URINE HAZY (CLEAR); BACTERIA, URINE AUTO NEGATIVE (NEGATIVE); BILIRUBIN, URINE AUTO NEGATIVE (NEGATIVE); BLOOD, URINE BLOOD NEGATIVE (NEGATIVE); COLOR, URINE YELLOW (YELLOW); GLUCOSE, URINE (UA) AUTO NEGATIVE (NEGATIVE); KETONE, URINE AUTO TRACE mg/dL (NEGATIVE); LEUKOCYTE ESTERASE, URINE AUTO NEGATIVE (NEGATIVE); MUCUS, URINE SMALL (NEGATIVE); NITRITE, URINE AUTO NEGATIVE (NEGATIVE); PROTEIN, URINE AUTO NEGATIVE (NEGATIVE); RBC, URINE AUTO 0 /HPF (0-3); SPECIFIC GRAVITY URINE AUTO 1.032 (1.002-1.035); SQUAMOUS EPITHELIAL CELL UR AU 5 /HPF (0-6); WBC, URINE AUTO 3 /HPF (0-3)
== END ==
LOC: SKLAB6 07:00
PROVIDERS: ATTEND Nurse Practitioner Adult Health
DX: R46.89 Other symptoms and signs involving appearance and behavior (principal)

== ENCOUNTER → 2023-02-19 | Outpatient (REF) | payer OTHER ==
[2023-02-19 22:48] LABS: APPEARANCE, URINE CLEAR (CLEAR); BACTERIA, URINE AUTO NEGATIVE (NEGATIVE); BILIRUBIN, URINE AUTO NEGATIVE (NEGATIVE); BLOOD, URINE BLOOD NEGATIVE (NEGATIVE); COLOR, URINE STRAW (YELLOW); GLUCOSE, URINE (UA) AUTO NEGATIVE (NEGATIVE); KETONE, URINE AUTO NEGATIVE (NEGATIVE); LEUKOCYTE ESTERASE, URINE AUTO NEGATIVE (NEGATIVE); MUCUS, URINE SMALL (NEGATIVE); NITRITE, URINE AUTO NEGATIVE (NEGATIVE); PROTEIN, URINE AUTO NEGATIVE (NEGATIVE); RBC, URINE AUTO 0 /HPF (0-3); SPECIFIC GRAVITY URINE AUTO 1.002 (1.002-1.035); SQUAMOUS EPITHELIAL CELL UR AU 1 /HPF (0-6); UROBILINOGEN, URINE AUTO 0.2 mg/dL (0.0-2.0); WBC, URINE AUTO 1 /HPF (0-3)
== END ==
LOC: SKLAB6 07:00
PROVIDERS: ATTEND Internal Medicine
DX: R41.82 Altered mental status, unspecified (principal)

== ENCOUNTER → 2023-02-21 | Outpatient (REF) | payer OTHER ==
[2023-02-21 14:35] LABS: APPEARANCE, URINE CLOUDY (CLEAR); BACTERIA, URINE AUTO NEGATIVE (NEGATIVE); BILIRUBIN, URINE AUTO NEGATIVE (NEGATIVE); BLOOD, URINE BLOOD NEGATIVE (NEGATIVE); COLOR, URINE AMBER (YELLOW); GLUCOSE, URINE (UA) AUTO NEGATIVE (NEGATIVE); KETONE, URINE AUTO TRACE mg/dL (NEGATIVE); LEUKOCYTE ESTERASE, URINE AUTO 2+ (NEGATIVE); MUCUS, URINE SMALL (NEGATIVE); NITRITE, URINE AUTO NEGATIVE (NEGATIVE); PROTEIN, URINE AUTO 2+ mg/dL (NEGATIVE); RBC, URINE AUTO 1 /HPF (0-3); SPECIFIC GRAVITY URINE AUTO 1.033 (1.002-1.035); SQUAMOUS EPITHELIAL CELL UR AU 19 /HPF (0-6); WBC, URINE AUTO 6 /HPF (0-3)
== END ==
LOC: SKLAB6 13:34
PROVIDERS: ATTEND Internal Medicine
DX: R41.82 Altered mental status, unspecified (principal)

== ENCOUNTER → 2023-02-23 | Outpatient (REF) | payer MEDICARE | LOC: SKLAB6 14:49 | PROVIDERS: ATTEND Internal Medicine | DX: R41.82 Altered mental status, unspecified (principal) ==

== ENCOUNTER → 2023-03-08 | Outpatient (REF) | payer MEDICARE | LOC: SKLAB6 14:16 | PROVIDERS: ATTEND Internal Medicine | DX: Z12.10 Encounter for screening for malignant neoplasm of intestinal tract, unspecified (principal) ==

== ENCOUNTER → 2023-03-14 | Outpatient (REF) | payer MEDICARE | LOC: SKLAB6 08:31 | PROVIDERS: ATTEND Internal Medicine | DX: Z12.11 Encounter for screening for malignant neoplasm of colon (principal) ==

== ENCOUNTER → 2023-03-14 | Outpatient (CLI) | payer MEDICARE | LOC: M WHC 15:18 | PROVIDERS: ATTEND Nurse Practitioner Adult Health | DX: Z12.31 Encounter for screening mammogram for malignant neoplasm of breast (principal) ==

== ENCOUNTER → 2023-04-12 | Outpatient (REF) | payer MEDICARE ==
[2023-04-12 09:36] LABS: HEMATOCRIT 42.3 % (36.0-47.0); MEAN CORPUSCULAR HEMOGLOBIN 31.3 pg (27.0-33.0); MEAN CORPUSCULAR HGB CONC 33.1 g/dl (32.0-36.5); MEAN CORPUSCULAR VOLUME 94.4 fl (80.0-96.0); PLATELET COUNT, AUTOMATED 225 10^3/uL (150-450); RED BLOOD COUNT 4.48 10^6/uL (4.00-5.40); WHITE BLOOD COUNT 3.9 10^3/uL (4.0-10.0)
[2023-04-12 09:52] LABS: ALBUMIN 3.2 G/DL (3.2-5.2); ALKALINE PHOSPHATASE 44 U/L (46-116); ALT/SGPT 15 U/L (7.0-40); AST/SGOT 14 U/L (<34); BILIRUBIN,TOTAL 0.5 MG/DL (0.3-1.2); BLOOD UREA NITROGEN 15 MG/DL (9-23); CALCIUM LEVEL 9.3 MG/DL (8.3-10.6); CARBON DIOXIDE LEVEL 23 MMOL/L (20-31); CHLORIDE LEVEL 110 MMOL/L (98-107); CREATININE FOR GFR 0.76 MG/DL (0.55-1.30); GLOMERULAR FILTRATION RATE > 60.0 (>45); GLUCOSE, FASTING 135 MG/DL (74-106); POTASSIUM SERUM 4.1 MMOL/L (3.5-5.1); SODIUM LEVEL 144 MMOL/L (136-145); TOTAL PROTEIN 6.2 G/DL (5.7-8.2)
== END ==
LOC: SKLAB6 07:39
PROVIDERS: ATTEND Internal Medicine
DX: F03.90 Unspecified dementia, unspecified severity, without behavioral disturbance, psychotic disturbance, mood disturbance, and anxiety (principal); Z79.899 Other long term (current) drug therapy

== ENCOUNTER → 2023-05-10 | Outpatient (REF) | payer MEDICARE ==
[2023-05-10 09:16] LABS: BASO % 0.6 % (0.0-1.0); EOS # 0.2 10^3/uL (0.0-0.5); HEMATOCRIT 41.4 % (36.0-47.0); HEMOGLOBIN 13.5 g/dl (12.0-15.5); LYMPH # 1.4 10^3/uL (1.5-5.0); LYMPH % 28.9 % (24.0-44.0); MEAN CORPUSCULAR HEMOGLOBIN 31.2 pg (27.0-33.0); MEAN CORPUSCULAR HGB CONC 32.6 g/dl (32.0-36.5); MEAN CORPUSCULAR VOLUME 95.6 fl (80.0-96.0); MONO # 0.4 10^3/uL (0.0-0.8); MONO % 8.3 % (2.0-8.0); NEUTROPHILS # 2.7 10^3/uL (1.5-8.5); PLATELET COUNT, AUTOMATED 225 10^3/uL (150-450); RED BLOOD COUNT 4.33 10^6/uL (4.00-5.40); WHITE BLOOD COUNT 4.8 10^3/uL (4.0-10.0)
[2023-05-10 09:30] LABS: VALPROIC ACID (DEPAKOTE) 81.7 UG/ML (50.0-100.0)
[2023-05-10 09:31] LABS: ALBUMIN 3.2 G/DL (3.2-5.2); ALKALINE PHOSPHATASE 44 U/L (46-116); ALT/SGPT 15 U/L (7.0-40); AST/SGOT 17 U/L (<34); BILIRUBIN,TOTAL 0.6 MG/DL (0.3-1.2); BLOOD UREA NITROGEN 15 MG/DL (9-23); CALCIUM LEVEL 8.9 MG/DL (8.3-10.6); CARBON DIOXIDE LEVEL 26 MMOL/L (20-31); CHLORIDE LEVEL 109 MMOL/L (98-107); CREATININE FOR GFR 0.71 MG/DL (0.55-1.30); GLOMERULAR FILTRATION RATE > 60.0 (>45); GLUCOSE, FASTING 123 MG/DL (74-106); POTASSIUM SERUM 3.9 MMOL/L (3.5-5.1); SODIUM LEVEL 143 MMOL/L (136-145)
== END ==
LOC: SKLAB6 07:11
PROVIDERS: ATTEND Internal Medicine
DX: G40.909 Epilepsy, unspecified, not intractable, without status epilepticus (principal)

== ENCOUNTER → 2023-05-14 | Outpatient (CLI) | payer OTHER | LOC: M PAIN 09:00 | PROVIDERS: ATTEND Nurse Practitioner Family | DX: M25.512 Pain in left shoulder (principal); G89.29 Other chronic pain; G90.512 Complex regional pain syndrome I of left upper limb; E55.9 Vitamin D deficiency, unspecified; G31.9 Degenerative disease of nervous system, unspecified; F02.80 Dementia in other diseases classified elsewhere, unspecified severity, without behavioral disturbance, psychotic disturbance, mood disturbance, and anxiety; E53.8 Deficiency of other specified B group vitamins; F32.A Depression, unspecified; E78.00 Pure hypercholesterolemia, unspecified; G40.909 Epilepsy, unspecified, not intractable, without status epilepticus; Z79.899 Other long term (current) drug therapy; Z88.0 Allergy status to penicillin; Z88.8 Allergy status to other drugs, medicaments and biological substances; Z91.013 Allergy to seafood ==

== ENCOUNTER → 2023-06-25 | Outpatient (REF) | payer OTHER ==
[2023-06-25 11:20] LABS: HEMATOCRIT 39.7 % (36.0-47.0); HEMOGLOBIN 13.2 g/dl (12.0-15.5); MEAN CORPUSCULAR HGB CONC 33.2 g/dl (32.0-36.5); MEAN CORPUSCULAR VOLUME 96.4 fl (80.0-96.0); PLATELET COUNT, AUTOMATED 229 10^3/uL (150-450); RED BLOOD COUNT 4.12 10^6/uL (4.00-5.40); WHITE BLOOD COUNT 6.7 10^3/uL (4.0-10.0)
[2023-06-25 11:50] LABS: BLOOD UREA NITROGEN 11 MG/DL (9-23); CALCIUM LEVEL 9.3 MG/DL (8.3-10.6); CARBON DIOXIDE LEVEL 29 MMOL/L (20-31); CHLORIDE LEVEL 110 MMOL/L (98-107); CREATININE FOR GFR 0.71 MG/DL (0.55-1.30); GLOMERULAR FILTRATION RATE > 60.0 (>45); GLUCOSE, FASTING 92 MG/DL (74-106); POTASSIUM SERUM 3.8 MMOL/L (3.5-5.1); SODIUM LEVEL 141 MMOL/L (136-145)
[2023-06-25 22:40] LABS: APPEARANCE, URINE HAZY (CLEAR); BACTERIA, URINE AUTO NEGATIVE (NEGATIVE); BILIRUBIN, URINE AUTO NEGATIVE (NEGATIVE); BLOOD, URINE BLOOD NEGATIVE (NEGATIVE); COLOR, URINE YELLOW (YELLOW); GLUCOSE, URINE (UA) AUTO NEGATIVE (NEGATIVE); KETONE, URINE AUTO TRACE mg/dL (NEGATIVE); LEUKOCYTE ESTERASE, URINE AUTO NEGATIVE (NEGATIVE); MUCUS, URINE SMALL (NEGATIVE); NITRITE, URINE AUTO NEGATIVE (NEGATIVE); PROTEIN, URINE AUTO NEGATIVE (NEGATIVE); RBC, URINE AUTO 1 /HPF (0-3); SPECIFIC GRAVITY URINE AUTO 1.028 (1.002-1.035); SQUAMOUS EPITHELIAL CELL UR AU 4 /HPF (0-6); WBC, URINE AUTO 1 /HPF (0-3)
== END ==
LOC: SKLAB6 10:29
PROVIDERS: ATTEND Internal Medicine
DX: R41.82 Altered mental status, unspecified (principal)

== ENCOUNTER → 2023-06-25 | Outpatient (REF) | payer MEDICARE, OTHER | LOC: SKLAB6 22:16 | PROVIDERS: ATTEND Internal Medicine | DX: R41.82 Altered mental status, unspecified (principal); Z53.8 Procedure and treatment not carried out for other reasons ==

== ENCOUNTER → 2023-06-26 | Outpatient (REF) | payer MEDICARE, MEDICAID ==
[~2023-06-26] MED LIST changes: +MEMA10TA PO; -MEMA10TA19 PO
== END ==
LOC: SKLAB6 07:00
PROVIDERS: ATTEND Internal Medicine
DX: Z12.11 Encounter for screening for malignant neoplasm of colon (principal)

== ENCOUNTER → 2023-07-10 | Outpatient (REF) | payer OTHER, MEDICARE | LOC: SKLAB6 15:31 | PROVIDERS: ATTEND Nurse Practitioner Adult Health | DX: Z12.11 Encounter for screening for malignant neoplasm of colon (principal) ==

== ENCOUNTER → 2023-07-11 | Outpatient (REF) | payer MEDICARE, MEDICAID ==
[2023-07-11 13:33] LABS: HEMATOCRIT 41.2 % (36.0-47.0); HEMOGLOBIN 13.8 g/dl (12.0-15.5); MEAN CORPUSCULAR HGB CONC 33.5 g/dl (32.0-36.5); MEAN CORPUSCULAR VOLUME 95.6 fl (80.0-96.0); PLATELET COUNT, AUTOMATED 261 10^3/uL (150-450); RED BLOOD COUNT 4.31 10^6/uL (4.00-5.40); WHITE BLOOD COUNT 6.7 10^3/uL (4.0-10.0)
[2023-07-11 13:57] LABS: BLOOD UREA NITROGEN 14 MG/DL (9-23); CALCIUM LEVEL 9.3 MG/DL (8.3-10.6); CARBON DIOXIDE LEVEL 28 MMOL/L (20-31); CHLORIDE LEVEL 106 MMOL/L (98-107); CREATININE FOR GFR 0.78 MG/DL (0.55-1.30); GLOMERULAR FILTRATION RATE > 60.0 (>45); GLUCOSE, FASTING 90 MG/DL (74-106); SODIUM LEVEL 141 MMOL/L (136-145)
== END ==
LOC: SKLAB6 12:00
PROVIDERS: ATTEND Internal Medicine
DX: R41.82 Altered mental status, unspecified (principal)

== ENCOUNTER → 2023-07-12 | Outpatient (REF) | payer MEDICAID, MEDICARE | LOC: SKLAB6 11:04 | PROVIDERS: ATTEND Internal Medicine | DX: Z12.11 Encounter for screening for malignant neoplasm of colon (principal) ==

== ENCOUNTER → 2023-07-18 | Outpatient (REF) | payer MEDICARE, OTHER | LOC: SKLAB6 14:40 | PROVIDERS: ATTEND Internal Medicine | DX: R00.1 Bradycardia, unspecified (principal); I95.9 Hypotension, unspecified ==

== ENCOUNTER 2023-07-27 13:04 | Emergency (ER) | payer MEDICARE, OTHER ==
[~2023-07-27] VITALS: Ht 157.5 cm; Wt 77.3 kg
[2023-07-27 14:45] VITALS: BP 143/73; O2SAT 86
[2023-07-27 15:03] VITALS: O2SAT 94
== END 2023-07-27 15:30 | disposition home or self-care (01) ==
LOC: M ED 13:04
DX: G30.9 Alzheimer's disease, unspecified (principal); W19.XXXA Unspecified fall, initial encounter; M47.896 Other spondylosis, lumbar region; M43.22 Fusion of spine, cervical region; G40.909 Epilepsy, unspecified, not intractable, without status epilepticus; Z88.0 Allergy status to penicillin; Z91.013 Allergy to seafood; Y92.410 Unspecified street and highway as the place of occurrence of the external cause; Y93.89 Activity, other specified; Y99.9 Unspecified external cause status; Z79.899 Other long term (current) drug therapy; Z79.1 Long term (current) use of non-steroidal anti-inflammatories (NSAID); Z79.83 Long term (current) use of bisphosphonates

== ENCOUNTER → 2023-08-09 | Outpatient (REF) | payer MEDICARE ==
[2023-08-09 15:23] LABS: HEMATOCRIT 37.9 % (36.0-47.0); HEMOGLOBIN 12.8 g/dl (12.0-15.5); MEAN CORPUSCULAR HEMOGLOBIN 32.3 pg (27.0-33.0); MEAN CORPUSCULAR HGB CONC 33.8 g/dl (32.0-36.5); MEAN CORPUSCULAR VOLUME 95.7 fl (80.0-96.0); PLATELET COUNT, AUTOMATED 201 10^3/uL (150-450); RED BLOOD COUNT 3.96 10^6/uL (4.00-5.40); WHITE BLOOD COUNT 6.9 10^3/uL (4.0-10.0)
[2023-08-09 15:48] LABS: VALPROIC ACID (DEPAKOTE) 83.3 UG/ML (50.0-100.0)
[2023-08-09 15:49] LABS: BLOOD UREA NITROGEN 16 MG/DL (9-23); CALCIUM LEVEL 9.1 MG/DL (8.3-10.6); CARBON DIOXIDE LEVEL 27 MMOL/L (20-31); CHLORIDE LEVEL 108 MMOL/L (98-107); CREATININE FOR GFR 0.71 MG/DL (0.55-1.30); GLOMERULAR FILTRATION RATE > 60.0 (>45); GLUCOSE, FASTING 100 MG/DL (74-106); POTASSIUM SERUM 3.9 MMOL/L (3.5-5.1); SODIUM LEVEL 141 MMOL/L (136-145)
== END ==
LOC: SKLAB6 14:05
PROVIDERS: ATTEND Internal Medicine
DX: R53.83 Other fatigue (principal)

== ENCOUNTER → 2023-08-13 | Outpatient (CLI) | payer MEDICAID, OTHER | LOC: M PAIN 09:00 | PROVIDERS: ATTEND Nurse Practitioner Family | DX: M25.512 Pain in left shoulder (principal); G89.29 Other chronic pain; E55.9 Vitamin D deficiency, unspecified; E53.8 Deficiency of other specified B group vitamins; G30.0 Alzheimer's disease with early onset; F02.80 Dementia in other diseases classified elsewhere, unspecified severity, without behavioral disturbance, psychotic disturbance, mood disturbance, and anxiety; F32.A Depression, unspecified; E78.00 Pure hypercholesterolemia, unspecified; G40.909 Epilepsy, unspecified, not intractable, without status epilepticus; Z79.899 Other long term (current) drug therapy; Z88.0 Allergy status to penicillin; Z88.8 Allergy status to other drugs, medicaments and biological substances; Z91.013 Allergy to seafood ==

== ENCOUNTER → 2023-08-15 | Outpatient (REF) | payer OTHER ==
[2023-08-15 08:57] LABS: HEMATOCRIT 39.4 % (36.0-47.0); HEMOGLOBIN 13.4 g/dl (12.0-15.5); MEAN CORPUSCULAR HEMOGLOBIN 32.1 pg (27.0-33.0); MEAN CORPUSCULAR VOLUME 94.5 fl (80.0-96.0); PLATELET COUNT, AUTOMATED 181 10^3/uL (150-450); RED BLOOD COUNT 4.17 10^6/uL (4.00-5.40)
[2023-08-15 09:17] LABS: BLOOD UREA NITROGEN 13 MG/DL (9-23); CALCIUM LEVEL 8.9 MG/DL (8.3-10.6); CARBON DIOXIDE LEVEL 25 MMOL/L (20-31); CHLORIDE LEVEL 107 MMOL/L (98-107); CREATININE FOR GFR 0.65 MG/DL (0.55-1.30); GLOMERULAR FILTRATION RATE > 60.0 (>45); GLUCOSE, FASTING 92 MG/DL (74-106); POTASSIUM SERUM 3.8 MMOL/L (3.5-5.1); SODIUM LEVEL 141 MMOL/L (136-145)
== END ==
LOC: SKLAB6 07:41
PROVIDERS: ATTEND Internal Medicine
DX: R50.9 Fever, unspecified (principal)

== ENCOUNTER → 2023-08-17 | Outpatient (REF) | payer MEDICARE, MEDICAID ==
[2023-08-17 09:51] LABS: HEMATOCRIT 42.6 % (36.0-47.0); HEMOGLOBIN 14.3 g/dl (12.0-15.5); MEAN CORPUSCULAR HGB CONC 33.6 g/dl (32.0-36.5); MEAN CORPUSCULAR VOLUME 95.3 fl (80.0-96.0); PLATELET COUNT, AUTOMATED 216 10^3/uL (150-450); RED BLOOD COUNT 4.47 10^6/uL (4.00-5.40)
[2023-08-17 10:20] LABS: BLOOD UREA NITROGEN 10 MG/DL (9-23); CALCIUM LEVEL 9.6 MG/DL (8.3-10.6); CARBON DIOXIDE LEVEL 28 MMOL/L (20-31); CHLORIDE LEVEL 102 MMOL/L (98-107); GLOMERULAR FILTRATION RATE > 60.0 (>45); GLUCOSE, FASTING 95 MG/DL (74-106); POTASSIUM SERUM 4.1 MMOL/L (3.5-5.1); SODIUM LEVEL 137 MMOL/L (136-145)
== END ==
LOC: SKLAB6 07:57
PROVIDERS: ATTEND Internal Medicine
DX: R09.81 Nasal congestion (principal); R05.9 Cough, unspecified; R50.9 Fever, unspecified

== ENCOUNTER → 2023-10-01 | Outpatient (REF) | payer MEDICARE, MEDICAID | LOC: SKLAB6 12:52 | PROVIDERS: ATTEND Internal Medicine | DX: R19.7 Diarrhea, unspecified (principal) ==

== ENCOUNTER → 2023-10-15 | Outpatient (REF) | payer MEDICARE, MEDICAID ==
[2023-10-15 09:28] LABS: HEMATOCRIT 39.7 % (36.0-47.0); HEMOGLOBIN 13.2 g/dl (12.0-15.5); MEAN CORPUSCULAR HEMOGLOBIN 32.6 pg (27.0-33.0); MEAN CORPUSCULAR HGB CONC 33.2 g/dl (32.0-36.5); PLATELET COUNT, AUTOMATED 254 10^3/uL (150-450); RED BLOOD COUNT 4.05 10^6/uL (4.00-5.40); WHITE BLOOD COUNT 7.1 10^3/uL (4.0-10.0)
[2023-10-15 09:43] LABS: ALBUMIN 3.3 G/DL (3.2-5.2); ALKALINE PHOSPHATASE 53 U/L (46-116); ALT/SGPT 17 U/L (7.0-40); AST/SGOT 15 U/L (<34); BILIRUBIN,TOTAL 0.7 MG/DL (0.3-1.2); BLOOD UREA NITROGEN 13 MG/DL (9-23); CALCIUM LEVEL 9.7 MG/DL (8.3-10.6); CARBON DIOXIDE LEVEL 29 MMOL/L (20-31); CHLORIDE LEVEL 107 MMOL/L (98-107); CREATININE FOR GFR 0.72 MG/DL (0.55-1.30); GLOMERULAR FILTRATION RATE > 60.0 (>45); GLUCOSE, FASTING 81 MG/DL (74-106); POTASSIUM SERUM 3.9 MMOL/L (3.5-5.1); SODIUM LEVEL 140 MMOL/L (136-145); TOTAL PROTEIN 6.2 G/DL (5.7-8.2)
== END ==
LOC: SKLAB6 07:10
PROVIDERS: ATTEND Internal Medicine
DX: R09.89 Other specified symptoms and signs involving the circulatory and respiratory systems (principal)

== ENCOUNTER → 2023-10-15 | Outpatient (REF) | payer MEDICARE, MEDICAID | LOC: SKLAB6 13:56 | PROVIDERS: ATTEND Internal Medicine | DX: M54.9 Dorsalgia, unspecified (principal); M25.559 Pain in unspecified hip; Z91.81 History of falling; Z53.8 Procedure and treatment not carried out for other reasons ==

== ENCOUNTER → 2023-10-15 | Outpatient (CLI) | payer MEDICARE, MEDICAID | LOC: M RAD 14:37 | PROVIDERS: ATTEND Nurse Practitioner Adult Health | DX: M47.817 Spondylosis without myelopathy or radiculopathy, lumbosacral region (principal); M25.551 Pain in right hip; Z91.81 History of falling ==

== ENCOUNTER → 2023-10-28 | Outpatient (REF) | payer MEDICARE, MEDICAID ==
[2023-10-28 22:16] LABS: HEMATOCRIT 36.9 % (36.0-47.0); HEMOGLOBIN 12.5 g/dl (12.0-15.5); MEAN CORPUSCULAR HEMOGLOBIN 32.8 pg (27.0-33.0); MEAN CORPUSCULAR HGB CONC 33.9 g/dl (32.0-36.5); MEAN CORPUSCULAR VOLUME 96.9 fl (80.0-96.0); PLATELET COUNT, AUTOMATED 269 10^3/uL (150-450); RED BLOOD COUNT 3.81 10^6/uL (4.00-5.40); WHITE BLOOD COUNT 7.4 10^3/uL (4.0-10.0)
[2023-10-28 22:41] LABS: BLOOD UREA NITROGEN 18 MG/DL (9-23); CALCIUM LEVEL 9.4 MG/DL (8.3-10.6); CARBON DIOXIDE LEVEL 26 MMOL/L (20-31); CHLORIDE LEVEL 108 MMOL/L (98-107); GLOMERULAR FILTRATION RATE > 60.0 (>45); GLUCOSE, FASTING 90 MG/DL (74-106); POTASSIUM SERUM 4.2 MMOL/L (3.5-5.1); SODIUM LEVEL 140 MMOL/L (136-145)
== END ==
LOC: SKLAB6 17:53
PROVIDERS: ATTEND Internal Medicine
DX: M19.031 Primary osteoarthritis, right wrist (principal); M79.641 Pain in right hand; M19.041 Primary osteoarthritis, right hand; M25.521 Pain in right elbow

== ENCOUNTER → 2023-11-12 | Outpatient (CLI) | payer OTHER | LOC: M PAIN 09:00 | PROVIDERS: ATTEND Nurse Practitioner Family | DX: M25.512 Pain in left shoulder (principal); G89.29 Other chronic pain; G90.512 Complex regional pain syndrome I of left upper limb; E55.9 Vitamin D deficiency, unspecified; E53.8 Deficiency of other specified B group vitamins; G30.0 Alzheimer's disease with early onset; F02.80 Dementia in other diseases classified elsewhere, unspecified severity, without behavioral disturbance, psychotic disturbance, mood disturbance, and anxiety; F32.A Depression, unspecified; E78.00 Pure hypercholesterolemia, unspecified; G40.909 Epilepsy, unspecified, not intractable, without status epilepticus; Z79.899 Other long term (current) drug therapy; Z88.0 Allergy status to penicillin; Z88.8 Allergy status to other drugs, medicaments and biological substances; Z91.013 Allergy to seafood ==

== ENCOUNTER → 2023-11-15 | Outpatient (REF) | payer OTHER, MEDICAID ==
[2023-11-15 12:02] LABS: HEMATOCRIT 42.6 % (36.0-47.0); HEMOGLOBIN 14.2 g/dl (12.0-15.5); MEAN CORPUSCULAR HEMOGLOBIN 32.3 pg (27.0-33.0); MEAN CORPUSCULAR HGB CONC 33.3 g/dl (32.0-36.5); PLATELET COUNT, AUTOMATED 285 10^3/uL (150-450); RED BLOOD COUNT 4.39 10^6/uL (4.00-5.40); WHITE BLOOD COUNT 7.9 10^3/uL (4.0-10.0)
[2023-11-15 12:32] LABS: VALPROIC ACID (DEPAKOTE) 84.3 UG/ML (50.0-100.0)
[2023-11-15 12:34] LABS: ALBUMIN 3.7 G/DL (3.2-5.2); ALKALINE PHOSPHATASE 62 U/L (46-116); ALT/SGPT 15 U/L (7.0-40); AST/SGOT 15 U/L (<34); BILIRUBIN,TOTAL 0.5 MG/DL (0.3-1.2); BLOOD UREA NITROGEN 16 MG/DL (9-23); CALCIUM LEVEL 10.1 MG/DL (8.3-10.6); CARBON DIOXIDE LEVEL 30 MMOL/L (20-31); CHLORIDE LEVEL 106 MMOL/L (98-107); CREATININE FOR GFR 0.99 MG/DL (0.55-1.30); GLOMERULAR FILTRATION RATE > 60.0 (>45); GLUCOSE, FASTING 80 MG/DL (74-106); POTASSIUM SERUM 4.3 MMOL/L (3.5-5.1); SODIUM LEVEL 142 MMOL/L (136-145)
== END ==
LOC: SKLAB6 07:00
PROVIDERS: ATTEND Internal Medicine
DX: G40.909 Epilepsy, unspecified, not intractable, without status epilepticus (principal)

== ENCOUNTER → 2024-02-11 | Outpatient (CLI) | payer OTHER | LOC: M PAIN 10:00 | PROVIDERS: ATTEND Nurse Practitioner Family | DX: M25.512 Pain in left shoulder (principal); G89.29 Other chronic pain; E55.9 Vitamin D deficiency, unspecified; E53.8 Deficiency of other specified B group vitamins; G90.512 Complex regional pain syndrome I of left upper limb; G30.9 Alzheimer's disease, unspecified; F02.80 Dementia in other diseases classified elsewhere, unspecified severity, without behavioral disturbance, psychotic disturbance, mood disturbance, and anxiety; F32.A Depression, unspecified; E78.00 Pure hypercholesterolemia, unspecified; G40.909 Epilepsy, unspecified, not intractable, without status epilepticus; Z79.899 Other long term (current) drug therapy; Z88.0 Allergy status to penicillin; Z88.8 Allergy status to other drugs, medicaments and biological substances; Z91.013 Allergy to seafood ==

== ENCOUNTER → 2024-03-13 | Outpatient (REF) | payer OTHER, MEDICARE | LOC: SKLAB6 07:00 | PROVIDERS: ATTEND Internal Medicine | DX: G40.909 Epilepsy, unspecified, not intractable, without status epilepticus (principal) ==

== ENCOUNTER → 2024-04-09 | Outpatient (REF) ==
[2024-04-09 18:51] LABS: APPEARANCE, URINE HAZY (CLEAR); BACTERIA, URINE AUTO NEGATIVE (NEGATIVE); BILIRUBIN, URINE AUTO NEGATIVE (NEGATIVE); BLOOD, URINE BLOOD NEGATIVE (NEGATIVE); COLOR, URINE AMBER (YELLOW); GLUCOSE, URINE (UA) AUTO NEGATIVE (NEGATIVE); KETONE, URINE AUTO TRACE mg/dL (NEGATIVE); LEUKOCYTE ESTERASE, URINE AUTO NEGATIVE (NEGATIVE); MUCUS, URINE SMALL (NEGATIVE); NITRITE, URINE AUTO NEGATIVE (NEGATIVE); PROTEIN, URINE AUTO NEGATIVE (NEGATIVE); RBC, URINE AUTO 3 /HPF (0-3); SPECIFIC GRAVITY URINE AUTO 1.031 (1.002-1.035); SQUAMOUS EPITHELIAL CELL UR AU 10 /HPF (0-6); WBC, URINE AUTO 3 /HPF (0-3)
== END ==
LOC: SKLAB6 17:56
PROVIDERS: ATTEND Internal Medicine
DX: R46.89 Other symptoms and signs involving appearance and behavior (principal)

== ENCOUNTER → 2024-04-10 | Outpatient (REF) | payer OTHER, MEDICARE ==
[2024-04-10 09:01] LABS: HEMATOCRIT 38.3 % (36.0-47.0); HEMOGLOBIN 12.8 g/dl (12.0-15.5); MEAN CORPUSCULAR HEMOGLOBIN 30.8 pg (27.0-33.0); MEAN CORPUSCULAR HGB CONC 33.4 g/dl (32.0-36.5); MEAN CORPUSCULAR VOLUME 92.3 fl (80.0-96.0); PLATELET COUNT, AUTOMATED 258 10^3/uL (150-450); RED BLOOD COUNT 4.15 10^6/uL (4.00-5.40)
[2024-04-10 09:24] LABS: BLOOD UREA NITROGEN 20 MG/DL (9-23); CALCIUM LEVEL 9.7 MG/DL (8.3-10.6); CARBON DIOXIDE LEVEL 27 MMOL/L (20-31); CHLORIDE LEVEL 109 MMOL/L (98-107); CREATININE FOR GFR 0.63 MG/DL (0.55-1.30); GLOMERULAR FILTRATION RATE > 60.0 (>45); GLUCOSE, FASTING 94 MG/DL (74-106); POTASSIUM SERUM 4.1 MMOL/L (3.5-5.1); SODIUM LEVEL 143 MMOL/L (136-145)
== END ==
LOC: SKLAB6 06:40
PROVIDERS: ATTEND Internal Medicine
DX: R46.89 Other symptoms and signs involving appearance and behavior (principal)

== ENCOUNTER → 2024-05-15 | Outpatient (REF) | payer OTHER, MEDICARE ==
[2024-05-15 09:56] LABS: HEMATOCRIT 38.3 % (36.0-47.0); HEMOGLOBIN 12.5 g/dl (12.0-15.5); MEAN CORPUSCULAR HEMOGLOBIN 31.1 pg (27.0-33.0); MEAN CORPUSCULAR HGB CONC 32.6 g/dl (32.0-36.5); MEAN CORPUSCULAR VOLUME 95.3 fl (80.0-96.0); PLATELET COUNT, AUTOMATED 241 10^3/uL (150-450); RED BLOOD COUNT 4.02 10^6/uL (4.00-5.40); WHITE BLOOD COUNT 5.2 10^3/uL (4.0-10.0)
[2024-05-15 10:43] LABS: ALKALINE PHOSPHATASE 61 U/L (35-104); ALT/SGPT 16 U/L (7.0-40); AST/SGOT 13 U/L (<34); BILIRUBIN,TOTAL 0.4 MG/DL (0.3-1.2); BLOOD UREA NITROGEN 15 MG/DL (9-23); CALCIUM LEVEL 8.9 MG/DL (8.3-10.6); CARBON DIOXIDE LEVEL 30 MMOL/L (20-31); CHLORIDE LEVEL 105 MMOL/L (98-107); GLOMERULAR FILTRATION RATE > 60.0 (>45); GLUCOSE, FASTING 77 MG/DL (74-106); POTASSIUM SERUM 4.2 MMOL/L (3.5-5.1); SODIUM LEVEL 143 MMOL/L (136-145)
== END ==
LOC: SKLAB6 09:10
PROVIDERS: ATTEND Internal Medicine
DX: F03.918 Unspecified dementia, unspecified severity, with other behavioral disturbance (principal)

== ENCOUNTER → 2024-05-27 | Outpatient (REF) | payer OTHER, MEDICARE | LOC: SKLAB6 12:21 | PROVIDERS: ATTEND Internal Medicine | DX: Z53.9 Procedure and treatment not carried out, unspecified reason (principal) ==

== ENCOUNTER → 2024-07-10 | Outpatient (REF) | payer OTHER, MEDICARE | LOC: SKLAB6 07:00 | PROVIDERS: ATTEND Internal Medicine | DX: G40.909 Epilepsy, unspecified, not intractable, without status epilepticus (principal) ==

== ENCOUNTER → 2024-07-11 | Outpatient (REF) | payer OTHER, MEDICARE ==
[2024-07-11 08:51] LABS: HEMATOCRIT 36.9 % (36.0-47.0); HEMOGLOBIN 11.9 g/dl (12.0-15.5); MEAN CORPUSCULAR HGB CONC 32.2 g/dl (32.0-36.5); MEAN CORPUSCULAR VOLUME 96.1 fl (80.0-96.0); PLATELET COUNT, AUTOMATED 283 10^3/uL (150-450); RED BLOOD COUNT 3.84 10^6/uL (4.00-5.40); WHITE BLOOD COUNT 5.4 10^3/uL (4.0-10.0)
[2024-07-11 09:15] LABS: CALCIUM LEVEL 9.6 MG/DL (8.3-10.6); CREATININE FOR GFR 0.75 MG/DL (0.55-1.30); GLOMERULAR FILTRATION RATE 89.4 (>45); POTASSIUM SERUM 4.9 MMOL/L (3.5-5.1)
[2024-07-11 09:19] LABS: THYROID STIMULATING HORMONE 2.677 uIU/ML (0.55-4.78)
== END ==
LOC: SKLAB6 07:59
PROVIDERS: ATTEND Internal Medicine
DX: R00.1 Bradycardia, unspecified (principal)

== ENCOUNTER → 2024-10-23 | Outpatient (REF) | payer MEDICARE ==
[~2024-10-23] MED LIST changes: +DIVA-41 PO; -DIVA500T94 PO
== END ==
LOC: SKLAB6 14:52
PROVIDERS: ATTEND Internal Medicine
DX: R19.5 Other fecal abnormalities (principal)

== ENCOUNTER → 2024-10-24 | Outpatient (REF) | payer MEDICARE | LOC: SKLAB6 15:07 | PROVIDERS: ATTEND Internal Medicine | DX: Z12.10 Encounter for screening for malignant neoplasm of intestinal tract, unspecified (principal) ==

== ENCOUNTER → 2024-11-03 | Outpatient (REF) | payer MEDICARE, MEDICAID ==
[2024-11-03 13:17] LABS: PLATELET COUNT, AUTOMATED 317 10^3/uL (150-450)
[2024-11-03 13:42] LABS: CALCIUM LEVEL 9.5 MG/DL (8.3-10.6); CARBON DIOXIDE LEVEL 27.0 MMOL/L (20-31); CHLORIDE LEVEL 106.0 MMOL/L (98-107); CREATININE FOR GFR 0.81 MG/DL (0.55-1.30); GLOMERULAR FILTRATION RATE 81.5 (>45); POTASSIUM SERUM 4.3 MMOL/L (3.5-5.1); SODIUM LEVEL 143.0 MMOL/L (136-145)
[2024-11-03 14:47] LABS: APPEARANCE, URINE HAZY (CLEAR); BACTERIA, URINE AUTO NEGATIVE (NEGATIVE); BILIRUBIN, URINE AUTO NEGATIVE (NEGATIVE); BLOOD, URINE BLOOD NEGATIVE (NEGATIVE); GLUCOSE, URINE (UA) AUTO NEGATIVE (NEGATIVE); KETONE, URINE AUTO TRACE mg/dL (NEGATIVE); LEUKOCYTE ESTERASE, URINE AUTO NEGATIVE (NEGATIVE); NITRITE, URINE AUTO NEGATIVE (NEGATIVE); PROTEIN, URINE AUTO NEGATIVE (NEGATIVE); RBC, URINE AUTO 1 /HPF (0-3); SPECIFIC GRAVITY URINE AUTO 1.027 (1.002-1.035); SQUAMOUS EPITHELIAL CELL UR AU 5 /HPF (0-6); UROBILINOGEN, URINE AUTO 0.2 mg/dL (0.0-2.0); WBC, URINE AUTO 1 /HPF (0-3)
== END ==
LOC: SKLAB6 11:44
PROVIDERS: ATTEND Internal Medicine
DX: R41.82 Altered mental status, unspecified (principal)

== ENCOUNTER → 2024-11-06 | Outpatient (CLI) | payer MEDICARE, MEDICAID | LOC: M RAD 11:54 | PROVIDERS: ATTEND Nurse Practitioner | DX: M19.072 Primary osteoarthritis, left ankle and foot (principal); M77.32 Calcaneal spur, left foot ==

== ENCOUNTER → 2024-11-11 | Outpatient (REF) | payer MEDICARE, MEDICAID | LOC: SKLAB6 07:42 | PROVIDERS: ATTEND Internal Medicine | DX: Z12.10 Encounter for screening for malignant neoplasm of intestinal tract, unspecified (principal) ==

== ENCOUNTER → 2024-11-13 | Outpatient (REF) | payer MEDICARE, MEDICAID ==
[2024-11-13 08:37] LABS: PLATELET COUNT, AUTOMATED 364 10^3/uL (150-450)
[2024-11-13 08:58] LABS: VALPROIC ACID (DEPAKOTE) 78.9 UG/ML (50.0-100.0)
[2024-11-13 09:00] LABS: ALT/SGPT 28.0 U/L (7.0-40); AST/SGOT 25.0 U/L (<34); CALCIUM LEVEL 9.9 MG/DL (8.3-10.6); CARBON DIOXIDE LEVEL 27.0 MMOL/L (20-31); CHLORIDE LEVEL 101.0 MMOL/L (98-107); CREATININE FOR GFR 0.75 MG/DL (0.55-1.30); GLOMERULAR FILTRATION RATE 89.4 (>45); POTASSIUM SERUM 3.7 MMOL/L (3.5-5.1); SODIUM LEVEL 141.0 MMOL/L (136-145)
== END ==
LOC: SKLAB6 07:00
PROVIDERS: ATTEND Internal Medicine
DX: G40.909 Epilepsy, unspecified, not intractable, without status epilepticus (principal)

== ENCOUNTER → 2024-12-22 | Outpatient (REF) | payer MEDICARE, MEDICAID ==
[2024-12-22 13:10] LABS: BASO # 0.0 10^3/uL (0.0-0.2); BASO % 0.3 % (0.0-1.0); EOS # 0.1 10^3/uL (0.0-0.5); EOS % 1.5 % (0.0-3.0); LYMPH # 1.5 10^3/uL (1.5-5.0); LYMPH % 23.8 % (24.0-44.0); MONO # 0.7 10^3/uL (0.0-0.8); MONO % 11.5 % (2.0-8.0); NEUTROPHILS # 3.8 10^3/uL (1.5-8.5); NEUTROPHILS % 62.7 % (36.0-66.0); PLATELET COUNT, AUTOMATED 371 10^3/uL (150-450)
[2024-12-22 13:20] LABS: CALCIUM LEVEL 9.3 MG/DL (8.3-10.6); CARBON DIOXIDE LEVEL 26.0 MMOL/L (20-31); CHLORIDE LEVEL 105.0 MMOL/L (98-107); CREATININE FOR GFR 0.76 MG/DL (0.55-1.30); GLOMERULAR FILTRATION RATE 87.5 (>45); POTASSIUM SERUM 4.3 MMOL/L (3.5-5.1); SODIUM LEVEL 141.0 MMOL/L (136-145)
== END ==
LOC: SKLAB6 11:49
PROVIDERS: ATTEND Internal Medicine
DX: F41.9 Anxiety disorder, unspecified (principal); Z79.899 Other long term (current) drug therapy

== ENCOUNTER → 2025-01-24 | Outpatient (REF) | payer MEDICARE, MEDICAID ==
[2025-01-24 14:09] LABS: BASO # 0.0 10^3/uL (0.0-0.2); BASO % 0.4 % (0.0-1.0); EOS # 0.3 10^3/uL (0.0-0.5); EOS % 3.5 % (0.0-3.0); LYMPH # 1.7 10^3/uL (1.5-5.0); LYMPH % 18.4 % (24.0-44.0); MONO # 0.5 10^3/uL (0.0-0.8); MONO % 5.8 % (2.0-8.0); NEUTROPHILS # 6.6 10^3/uL (1.5-8.5); NEUTROPHILS % 71.7 % (36.0-66.0); PLATELET COUNT, AUTOMATED 370 10^3/uL (150-450)
[2025-01-24 14:43] LABS: ALT/SGPT 21 U/L (7.0-40); AST/SGOT 31 U/L (<34); CALCIUM LEVEL 9.5 MG/DL (8.3-10.6); CARBON DIOXIDE LEVEL 27 MMOL/L (20-31); CHLORIDE LEVEL 106 MMOL/L (98-107); CREATININE FOR GFR 0.72 MG/DL (0.55-1.30); GLOMERULAR FILTRATION RATE > 90.0 (>45); POTASSIUM SERUM 4.7 MMOL/L (3.5-5.1); SODIUM LEVEL 143 MMOL/L (136-145)
[2025-01-24 20:28] LABS: APPEARANCE, URINE HAZY (CLEAR); BACTERIA, URINE AUTO NEGATIVE (NEGATIVE); BILIRUBIN, URINE AUTO NEGATIVE (NEGATIVE); BLOOD, URINE BLOOD NEGATIVE (NEGATIVE); GLUCOSE, URINE (UA) AUTO NEGATIVE (NEGATIVE); KETONE, URINE AUTO NEGATIVE (NEGATIVE); LEUKOCYTE ESTERASE, URINE AUTO NEGATIVE (NEGATIVE); NITRITE, URINE AUTO NEGATIVE (NEGATIVE); PROTEIN, URINE AUTO NEGATIVE (NEGATIVE); RBC, URINE AUTO 0 /HPF (0-3); SPECIFIC GRAVITY URINE AUTO 1.038 (1.002-1.035); SQUAMOUS EPITHELIAL CELL UR AU 8 /HPF (0-6); UROBILINOGEN, URINE AUTO 2.0 mg/dL (0.0-2.0); WBC, URINE AUTO 0 /HPF (0-3)
== END ==
LOC: SKLAB6 11:00
PROVIDERS: ATTEND Emergency Medicine
DX: Z91.81 History of falling (principal); Z79.899 Other long term (current) drug therapy

== ENCOUNTER → 2025-03-11 | Outpatient (REF) | payer MEDICARE, MEDICAID | LOC: SKLAB6 07:00 | PROVIDERS: ATTEND Family Medicine | DX: Z11.2 Encounter for screening for other bacterial diseases (principal); Z20.818 Contact with and (suspected) exposure to other bacterial communicable diseases ==